=== PATIENT | female | born 1940 | race Caucasian/White ===

== ENCOUNTER 2017-08-10 12:15 | Emergency (ER) | payer MEDICARE, OTHER ==
[2017-08-10] MEDS ORDERED: Iopamidol 755 Mg/ML 75 ML Bottle IV ONE (13:17)
--- NOTE | 2017-08-11 12:25 | CR ---
INDICATION: Fall. CHEST: Portable AP upright view of the chest revealed the heart to be enlarged , the aorta is tortuous with calcification in the arch. The upper lung field pulmonary vasculature appears slightly prominent, raising question of a mild or early CHF. This should be correlated clinically. Consolidating pneumonia or effusion, contusion or pneumothorax, was not identified. IMPRESSION: ASHD, cardiomegaly, mild or early CHF. MTDD
--- NOTE | 2017-08-12 16:59 | ER ---
DATE SEEN: 08/10/2017 TIME SEEN: The patient was seen at 1230 hours - that was her presentation to the ER. HISTORY OF PRESENT ILLNESS: This 76-year-old woman complains of a fall this morning. At 1100 hours, she was attempting to get up from her chair at the table, while others were watching her, to reach for her walker, and she fell off to the side and fell onto the floor onto her buttocks. She did not strike her head or hurt her arms or thighs, but she has mild sore buttocks. She denies hip pain. Her son noted that she was slightly weak and had a tendency to lean to the left. PAST MEDICAL HISTORY: Significant for gout, uses febuxostat 40 mg daily; rheumatoid arthritis, methotrexate; diabetes, metformin; atrial fibrillation, uses carvedilol 6.75 mg and was to have a pacemaker placed on 08/12/2017; a CVA 3 months ago; and question if she has congestive heart failure; status post previous left total knee arthroplasty in July 2016 and also ankle fracture and has hardware placed years before that; obese, 210 pounds; and has presbycusis, decreased hearing. REVIEW OF SYSTEMS: CONSTITUTIONAL: Presbycusis, wears glasses. CARDIAC: Denies chest pain, shortness of breath, cough, or recent fever. GI: Denies abdominal pain. No gastrointestinal symptoms. : 5, para 5-0-0-5. All vaginal deliveries. PHYSICAL EXAMINATION: GENERAL: Alert woman who has a trace of loss of left nasolabial fold. Otherwise, the smile has symmetry to the face. HEENT: PERRLA intact. Pharynx without abnormality. Gag is in place. Tongue is midline. Uvula is midline. NECK: No bruits. No masses. No cervical adenopathy. LUNGS: Clear without rales, rhonchi, or wheezes. HEART: S1, S2. There is an irregular rhythm. ABDOMEN: Soft. No guarding. No abdominal discomfort. EXTREMITIES: No pedal edema. Dorsalis pedis pulse intact. NEUROLOGIC: Deep tendon reflexes in lower extremities absent, upper extremities hypoactive. Cranial nerves 2 through 12 intact, except for the mild left facial nasolabial fold changes-central 7. Left leg, able to raise her left leg and right leg. Right leg strength is stronger than the left leg. Left leg has mild giveaway against active resistance. Attempts at dorsiflexion and attempt to pull her entire body distally with dorsiflexion of the ankles, there is a moderate giveaway of the left ankle. 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 DIAGNOSTIC STUDIES: CT of the head revealed no convincing evidence for recent infarct. No hemorrhage, mass, or mass effect. Vertebral arteries and internal carotid artery siphons bilaterally demonstrate atherosclerotic mural calcifications. Mild left acute maxillary sinusitis-visualized sinus. Brain, [id number] nonspecific atrophy, chronic microvascular changes of ischemia without prior infarction noted in the white matter. No evidence for recent infarct. No hemorrhage or mass effect. LABORATORY FINDINGS: White count normal at 9600, PMNs 73, lymphocytes 14, monos 8, hemoglobin 13, and platelets 339,000. INR is 1.02. D-dimer slightly elevated at 1610 (within the range of normal for her age, as per studies 6000 patients, 2015). Potassium low at 3.2, creatinine 1.2, BUN 24, GFR 44, and glucose 177. Troponin less than 0.017. Albumin 3.1. ER COURSE: Attempt to get a large IV was not successful, as we wanted to do vascular studies along with the noncontrast study and this created a delay in our studies. I chose to go ahead with the CT scan anyway without the IV contrast. CT as noted above. ASSESSMENT: 1. Right cerebrovascular accident. 2. At 1445 hours, it was noted that she had an improvement of her left arm, no longer had a pronator drift, no longer has a decreased strength in her left arm, and the left leg strength is much improved. On repeat examination, she has regained a total of maybe 75% strength in the left arm and left leg. She still has a giveaway of both of them. OTHER DIAGNOSES: 1. Obesity. 2. Gout. 3. Hypertension. 4. Atrial fibrillation. 5. EKG has old inferior infarct and old anterior infarct, heart rate 61. 6. Atrial fibrillation. No sign of congestive heart failure. Also, the fact that she had a cerebrovascular accident 3 months ago, indeterminate to the exact time of the events for her, the patient will not be getting lytics. She will be headed to [facility], Dr. Collin Lance, and also the neurologist who accepted the patient, also talked to Dr. Tali Pena in the ER. The patient will be expected in the emergency room and arrangements were made for a stroke alert and CT angio for further evaluations. /[id number] ARMANDO/NORMA
== END 2017-08-10 15:20 ==
LOC: FB.ED 12:15
DX: I63.9 Cerebral infarction, unspecified (principal); E11.9 Type 2 diabetes mellitus without complications; M10.9 Gout, unspecified; I48.91 Unspecified atrial fibrillation; E66.9 Obesity, unspecified; Z79.84 Long term (current) use of oral hypoglycemic drugs; W19.XXXA Unspecified fall, initial encounter
CPT/HCPCS: 36415; 70450; 71045; 80053; 83880; 84443; 84484; 85025; 85379; 85610; 93005; 99285

== ENCOUNTER 2017-08-21 03:15 | Emergency (ER) | payer MEDICARE, OTHER ==
[2017-08-21] MEDS ORDERED: Sodium Chloride 0.9% 10 ML Syringe FLUSH PRN (03:23)
[2017-08-21] MEDS ORDERED: Acetaminophen 325 MG Tab PO STA (04:04)
--- NOTE | 2017-08-21 04:11 | EDM.PDOC ---
ED HPI GENERAL MEDICAL PROBLEM - General Stated Complaint: GENERAL Time Seen by Provider: 08/21/17 03:15 Source of Information: Reports: Patient, Family, RN (from [place]) History Limitations: Reports: Altered Mental Status - History of Present Illness INITIAL COMMENTS - FREE TEXT/NARRATIVE: 76 y.o.w.f came from the alf to the ED after a nurse noticed a bleed at the patient's left ant chest wall where a pacemaker was placed on 08/19/2017. On arrival, there a mild bleed at a 6 cm surgical wound. No pulsating bleed. Pt denied chest pain. BP 166/89 HR 79 Temp 98.3 Pulse 99% RR 18. Onset: Today Onset Date: 08/21/17 Onset Time: 03:00 Duration: Minutes:, Intermittent Location: Reports: Chest Quality: Reports: Other (surgical wound bleed) Severity: Moderate Improves with: Reports: Cold Therapy Worsens with: Reports: Movement Context: Reports: Trauma (S/P pacemaker placement 08/19/2017) Associated Symptoms: Reports: Other (H/O CVA) - Related Data Allergies Allergy/AdvReac Type Severity Reaction Status Date / Time lisinopril Allergy Dizziness Verified 08/21/17 05:18 Home Meds: Home Meds Carvedilol 3.125 mg PO DAILY 08/10/17 [History] Diltiazem HCl [Diltiazem ER] 240 mg PO DAILY 08/10/17 [History] Febuxostat [Uloric] 80 mg PO DAILY 08/10/17 [History] Methotrexate 15 mg PO WEEKLY 08/10/17 [History] Sertraline [Zoloft] 25 mg PO DAILY 08/10/17 [History] metFORMIN HCl [Metformin HCl ER] 500 mg PO DAILY 08/10/17 [History] Past Medical History HEENT History: Reports: Impaired Vision Cardiovascular History: Reports: Afib, Hypertension 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: Musculoskeletal History: Reports: Arthritis Neurological History: Reports: TIA Endocrine/Metabolic History: Reports: Diabetes, Type II - Past Surgical History Female Surgical History: Reports: Hysterectomy Musculoskeletal Surgical History: Reports: Arthroscopic Knee, Knee Replacement Other Musculoskeletal Surgeries/Procedures:: ankle hardware Social & Family History - Family History Family Medical History: Unobtainable - Tobacco Use Smoking Status *Q: Never Smoker - Caffeine Use Caffeine Use: Reports: Coffee, Soda, Tea - Recreational Drug Use Recreational Drug Use: No ED ROS GENERAL - Review of Systems Review Of Systems: See Below Constitutional: Reports: No Symptoms HEENT: Reports: No Symptoms Respiratory: Reports: No Symptoms Cardiovascular: Reports: No Symptoms Endocrine: Reports: Other (H/O DM) GI/Abdominal: Reports: No Symptoms : Reports: No Symptoms Musculoskeletal: Reports: No Symptoms Skin: Reports: Wound (surgial wound left ant chest wall s/p Pacemaker placement 08/19/2017) Neurological: Reports: No Symptoms Psychiatric: Reports: No Symptoms Hematologic/Lymphatic: Reports: No Symptoms Immunologic: Reports: No Symptoms ED EXAM, SKIN/RASH Exam: See Below Exam Limited By: Physical Impairment General Appearance: Alert, WD/WN, No Apparent Distress, Obese (morbid) Eye Exam: Bilateral Eye: Normal Inspection Ears: Normal External Exam Nose: Normal Inspection Throat/Mouth: Normal Inspection Head: Atraumatic, Normocephalic Neck: Normal Inspection, Supple, Non-Tender, Full Range of Motion Respiratory/Chest: No Respiratory Distress, Lungs Clear, Normal Breath Sounds, No Accessory Muscle Use Cardiovascular: Normal Peripheral Pulses, Regular Rate, Rhythm, No Edema Peripheral Pulses: 1+: Radial (L) GI/Abdominal: Normal Bowel Sounds (Female) Exam: Deferred Rectal (Female) Exam: Deferred Back Exam: Normal Inspection, Full Range of Motion Extremities: Normal Inspection, Normal Range of Motion, Limited Range of Motion (deu to bilt leg cramps) Neurological: Alert, Oriented, CN II-XII Intact Psychiatric: Normal Affect, Normal Mood Skin: Warm, Dry, Wound/Incision (surgical wound blled left ant chest) Location, Skin: Chest (surgical wound bleed left ant c) Course - Vital Signs Text/Narrative:: 76 y.o.w.f came from the alf to the ED after a nurse noticed a bleed at the patient's left ant chest wall where a pacemaker was placed on 08/19/2017. On arrival, there a mild bleed at a 6 cm surgical wound. No pulsating bleed. Pt denied chest pain. BP 166/89 HR 79 Temp 98.3 Pulse 99% RR 18. PE: Surgical wound bleed for a 6 cm wound, not pulsating with leg cramps Labs: WBC 15K, INR 1.15 HGB 11.4 HCT 34.0 Impression: Pacemaker placement on 08/19/2017, H/O CVA, on Coumadin with surgical wound bleed left ant chest wall. Leg cramps. NIDDM. Tx: Pressure, ICE bag. Tylenol 4.[address] Morales, Card vas surgeon [facility]: Call back in 2-3 hours, then the surgeon who placed the pacemaker. 4.[address] John, Hospitalist [facility]: Accepted the patient for transfer and further care Reexam: stable, not improving Plan: Transfer to [facility] Last Recorded V/S: Last Vital Signs Temp 37.2 C 08/21/17 03:15 Pulse 88 08/21/17 03:15 Resp 18 08/21/17 03:15 BP 187/90 H 08/21/17 03:15 Pulse Ox 98 08/21/17 03:15 - Orders/Labs/Meds Orders: Active Orders 24 hr Category Date Time Status Cooling Warming Measures [RC] ASDIRECTED Care 08/21/17 03:23 Active Sodium Chloride 0.9% @ 125 MLS/HR (1000ml) Med 08/21/17 05:30 Ordered Sodium Chloride 0.9% [Normal Saline] 1,000 ml IV ASDIRECTED Sodium Chloride 0.9% [Saline Flush] Med 08/21/17 03:23 Active 10 ml FLUSH ASDIRECTED PRN Ice Bag [Ice Therapy] [OM.PC] Routine Oth 08/21/17 03:23 Ordered Peripheral IV Insertion Adult [OM.PC] Routine Oth 08/21/17 03:23 Ordered Medication Orders Sodium Chloride (Normal Saline) 1,000 mls @ 125 mls/hr IV ASDIRECTED MCKENZIE Last Admin: 08/21/17 05:10 Dose: 125 mls/hr Sodium Chloride (Saline Flush) 10 ml FLUSH ASDIRECTED PRN PRN Reason: Keep Vein Open Last Admin: 08/21/17 03:22 Dose: 10 ml 4.10 am: Consultation DR. CALERO, Cardiovasc. Surgeon, [facility]: Labs: Laboratory Tests 08/21/17 08/21/17 08/21/17 Range/Units 03:22 03:22 03:22 WBC 15.1 H (4.5-12.0) X10-3/uL RBC 3.81 (3.23-5.20) x10(6)uL Hgb 11.4 L (11.5-15.5) g/dL Hct 34.0 (30.0-51.3) % MCV 89.3 (80-96) fL MCH 30.0 (27.7-33.6) pg MCHC 33.6 (32.2-35.4) g/dL RDW 16.7 H (11.5-15.5) % Plt Count 360 (125-369) X10(3)uL MPV 8.6 (7.4-10.4) fL Add Manual Diff Yes Neutrophils % (Manual) 70 (46-82) % Band Neutrophils % 3 (0-6) % Lymphocytes % (Manual) 20 (13-37) % Monocytes % (Manual) 5 (4-12) % Eosinophils % (Manual) 2 (0-5) % PT 11.6 H (8.7-11.1) INR 1.15 H (0.89-1.13) APTT 31.1 (24.4-33.2) SECONDS Sodium 136 (135-145) mmol/L Potassium 3.8 (3.5-5.3) mmol/L Chloride 99 L (100-110) mmol/L Carbon Dioxide 27 (21-32) mmol/L BUN 18 (7-18) mg/dL Creatinine 1.0 (0.55-1.02) mg/dL Est Cr Clr Drug Dosing TNP Estimated GFR (MDRD) 54 L (>60) BUN/Creatinine Ratio 18.0 (9-20) Glucose 154 H (80-116) mg/dL Calcium 9.2 (8.6-10.2) mg/dL Creatine Kinase 616 H* (60-160) IU/L Troponin I (<0.017-0.056) ng/mL 08/21/17 Range/Units 03:22 WBC (4.5-12.0) X10-3/uL RBC (3.23-5.20) x10(6)uL Hgb (11.5-15.5) g/dL Hct (30.0-51.3) % MCV (80-96) fL MCH (27.7-33.6) pg MCHC (32.2-35.4) g/dL RDW (11.5-15.5) % Plt Count (125-369) X10(3)uL MPV (7.4-10.4) fL Add Manual Diff Neutrophils % (Manual) (46-82) % Band Neutrophils % (0-6) % Lymphocytes % (Manual) (13-37) % Monocytes % (Manual) (4-12) % Eosinophils % (Manual) (0-5) % PT (8.7-11.1) INR (0.89-1.13) APTT (24.4-33.2) SECONDS Sodium (135-145) mmol/L Potassium (3.5-5.3) mmol/L Chloride (100-110) mmol/L Carbon Dioxide (21-32) mmol/L BUN (7-18) mg/dL Creatinine (0.55-1.02) mg/dL Est Cr Clr Drug Dosing Estimated GFR (MDRD) (>60) BUN/Creatinine Ratio (9-20) Glucose (80-116) mg/dL Calcium (8.6-10.2) mg/dL Creatine Kinase (60-160) IU/L Troponin I 0.020 (<0.017-0.056) ng/mL Meds: Medications Generic Name Dose Route Start Last Admin Trade Name Freq PRN Reason Stop Dose Admin Sodium Chloride 1,000 mls @ 125 mls/hr 08/21/17 05:30 08/21/17 05:10 Normal Saline IV 125 mls/hr ASDIRECTED MCKENZIE Administration Sodium Chloride 10 ml 08/21/17 03:23 08/21/17 03:22 Saline Flush FLUSH 10 ml ASDIRECTED PRN Administration Keep Vein Open Discontinued Medications Generic Name Dose Route Start Last Admin Trade Name Freq PRN Reason Stop Dose Admin Acetaminophen 650 mg 08/21/17 04:04 08/21/17 04:20 Tylenol PO 08/21/17 04:05 650 mg NOW STA Administration Departure - Departure Time of Disposition: 05:21 Disposition: DC/Tfer to [facility] Condition: Fair Clinical Impression: Surgical wound dehiscence Qualifiers: Encounter type: initial encounter Qualified Code(s): T81.31XA - Disruption of external operation (surgical) wound, not elsewhere classified, initial encounter - Discharge Information Referrals: PCP,Unknown [Primary Care Provider] - - My Orders Last 24 Hours: My Active Orders 08/21/17 03:23 Cooling Warming Measures [RC] ASDIRECTED Sodium Chloride 0.9% [Saline Flush] 10 ml FLUSH ASDIRECTED PRN Ice Bag [Ice Therapy] [OM.PC] Routine Peripheral IV Insertion Adult [OM.PC] Routine 08/21/17 05:30 Sodium Chloride 0.9% @ 125 MLS/HR (1000ml) Sodium Chloride 0.9% [Normal Saline] 1,000 ml IV ASDIRECTED - Assessment/Plan Last 24 Hours: My Active Orders 08/21/17 03:23 Cooling Warming Measures [RC] ASDIRECTED Sodium Chloride 0.9% [Saline Flush] 10 ml FLUSH ASDIRECTED PRN Ice Bag [Ice Therapy] [OM.PC] Routine Peripheral IV Insertion Adult [OM.PC] Routine 08/21/17 05:30 Sodium Chloride 0.9% @ 125 MLS/HR (1000ml) Sodium Chloride 0.9% [Normal Saline] 1,000 ml IV ASDIRECTED
[2017-08-21] MEDS ORDERED: Sodium Chloride 0.9% 1,000 ML IV SCH (05:30)
== END 2017-08-21 05:42 | disposition critical access hospital (66) ==
LOC: FB.ED 03:15
DX: T81.31XA Disruption of external operation (surgical) wound, not elsewhere classified, initial encounter (principal); E11.9 Type 2 diabetes mellitus without complications; I10 Essential (primary) hypertension; I48.91 Unspecified atrial fibrillation; Z86.73 Personal history of transient ischemic attack (TIA), and cerebral infarction without residual deficits; Z95.0 Presence of cardiac pacemaker; Z88.8 Allergy status to other drugs, medicaments and biological substances; Z79.899 Other long term (current) drug therapy
CPT/HCPCS: 36415; 80048; 82550; 84484; 85025; 85610; 85730; 96360; 99283; 99284; A9270-GY; J7040; J7050

== ENCOUNTER 2017-08-26 18:18 | Emergency (ER) | payer MEDICARE, OTHER ==
[2017-08-26] MEDS ORDERED: Ketorolac 60 MG/2 ML SDV IM ONE (18:30)
--- NOTE | 2017-08-26 18:47 | EDM.PDOC ---
ED HPI GENERAL MEDICAL PROBLEM - General Chief Complaint: Lower Extremity Injury/Pain Stated Complaint: HIP PAIN Time Seen by Provider: 08/26/17 18:18 Source of Information: Reports: Patient, RN ([facility]) History Limitations: Reports: Physical Impairment - History of Present Illness INITIAL COMMENTS - FREE TEXT/NARRATIVE: 76 y.o.w.f [facility] due to pain at her left "hip" pointing to her LLQ of her abdomen and left thigh. No trauma. Pt is currently at the [facility] recovering from her left sided CVA. Pt is a poor historian, no family is present. No other acute medical issues. 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 Left Hip Pain Score (Numeric/FACES): 5 - Related Data Allergies Allergy/AdvReac Type Severity Reaction Status Date / Time lisinopril Allergy Dizziness Verified 08/26/17 18:27 Home Meds: Home Meds Carvedilol 3.125 mg PO DAILY 08/10/17 [History] Diltiazem HCl [Diltiazem ER] 240 mg PO DAILY 08/10/17 [History] Febuxostat [Uloric] 80 mg PO DAILY 08/10/17 [History] Methotrexate 15 mg PO WEEKLY 08/10/17 [History] Sertraline [Zoloft] 25 mg PO DAILY 08/10/17 [History] metFORMIN HCl [Metformin HCl ER] 500 mg PO DAILY 08/10/17 [History] Past Medical History HEENT History: Reports: Impaired Vision Cardiovascular History: Reports: Afib, Hypertension Gastrointestinal History: Reports: None Genitourinary History: Reports: Chronic Renal Insuffiency, Other (See Below) Other Genitourinary History: urinary retention, has 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: Musculoskeletal History: Reports: Arthritis Neurological History: Reports: TIA 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 Endocrine/Metabolic History: Reports: Diabetes, Type II - Infectious Disease History Infectious Disease History: Reports: Chicken Pox - Past Surgical History Female Surgical History: Reports: Hysterectomy Musculoskeletal Surgical History: Reports: Arthroscopic Knee, Knee Replacement Other Musculoskeletal Surgeries/Procedures:: ankle hardware Social & Family History - Family History Family Medical History: Unobtainable - Tobacco Use Smoking Status *Q: Never Smoker - Caffeine Use Caffeine Use: Reports: Coffee, Soda, Tea - Recreational Drug Use Recreational Drug Use: No Review of Systems - Review of Systems Review Of Systems: Unable To Obtain ED EXAM, GENERAL - Physical Exam Exam: See Below Exam Limited By: Physical Impairment General Appearance: Alert, WD/WN, Obese Eye Exam: Bilateral Eye: Normal Inspection Ears: Normal External Exam Ear Exam: Bilateral Ear: Auricle Normal Nose: Normal Inspection Throat/Mouth: Normal Inspection Head: Atraumatic, Normocephalic Neck: Normal Inspection, Supple, Non-Tender, Full Range of Motion Respiratory/Chest: No Respiratory Distress, Lungs Clear, Normal Breath Sounds Cardiovascular: Normal Peripheral Pulses, Regular Rate, Rhythm, No Edema, No Gallop Peripheral Pulses: 1+: Brachial (L) GI/Abdominal: Normal Bowel Sounds, No Organomegaly, No Distention, No Abnormal Bruit, No Mass, Tender (LLQ) (Female) Exam: Deferred Rectal (Female) Exam: Deferred Back Exam: Normal Inspection, Full Range of Motion Extremities: Normal Inspection, Normal Range of Motion, Non-Tender, No Pedal Edema Neurological: Alert, Oriented, CN II-XII Intact, Normal Cognition, Abnormal Gait (gait not tested, pt is currently bedridden due to a Leftsided CVA) Psychiatric: Normal Affect, Normal Mood Skin Exam: Warm, Dry, Intact, Normal Color, No Rash Lymphatic: No Adenopathy Course - Vital Signs Text/Narrative:: 76 y.o.w.f [facility] to pain at her left "hip" pointing to her LLQ of her abdomen and left thigh. No trauma. [facility] is [facility] at [facility] recovering from her left sided CVA. Pt is a poor historian, no family is present. No other acute medical issues. BP 156/124 Pulse 64 RR 20 Pulse ox 98% temp 36.7 PE: Obese 76 y.o.w.f eith left sided hemiparesis, abd, pain and left lat hip pain Imaging: Pelvis and left hip: NAD Abd. flat/upright: Constipation Impression: Trochante tendinitis, constipation Tx: Motrin Reexam: Improved Plan: D/C back to [facility] with instruction. Prophylactic Lovenox (?) Last Recorded V/S: Last Vital Signs Temp 36.8 C 08/26/17 19:23 Pulse 61 08/26/17 20:12 Resp 18 08/26/17 19:23 BP 142/38 H 08/26/17 20:12 Pulse Ox 100 08/26/17 19:23 - Orders/Labs/Meds Meds: Medications Discontinued Medications Generic Name Dose Route Start Last Admin Trade Name Freq PRN Reason Stop Dose Admin Ketorolac Tromethamine 60 mg 08/26/17 18:30 08/26/17 18:36 Toradol IM 08/26/17 18:31 60 mg ONETIME ONE Administration Departure - Departure Time of Disposition: 19:54 Disposition: Home, Self-Care 01 Condition: Good Clinical Impression: Trochanteric tendinitis of left hip Constipation Qualifiers: Constipation type: slow transit constipation Qualified Code(s): K59.01 - Slow transit constipation - Discharge Information Referrals: Todd Mccray MD [Primary Care Provider] - Forms: ED Department Discharge Additional Instructions: ice, motrin 600 mg every 6 hours and tylenol 650 mg every 6 hours as needed for pain. Refer to physical therapy and make an appointment with PCP to follow up. Please take laxatives daily.
--- NOTE | 2017-08-27 08:38 | CR ---
INDICATION: Fell on Friday, left hip pain. PELVIS WITH LEFT HIP: Frontal view of the pelvis with frontal and lateral views of the left hip revealed mild degenerative changes at the hip joints with the joint spaces fairly well preserved. A definite fracture or dislocation was not identified. Overall bone density appeared to be fairly normal. Evidence of previous pelvic surgery is noted. Multiple phleboliths are noted in the pelvis. Very minimal degenerative changes are noted at the sacroiliac joints, slightly more prominently on the right than left. IMPRESSION: No acute fracture or dislocation. [facility]
--- NOTE | 2017-08-27 10:25 | CR ---
INDICATION: Abdominal pain. ABDOMEN: Five images of the abdomen were obtained in supine and decubitus positions, with the right side up on the decubitus. The pattern of gas and feces is nonspecific, without evidence of free air or obstruction. Calcifications are noted in the area of the splenic artery and minimally in the aorta. Hypertrophic degenerative changes and disk disease are noted in the mid to lower lumbar spine. No organomegaly, mass lesions, or nonvascular pathologic calcifications were identified. IMPRESSION: Nonacute abdomen. MTDD
== END 2017-08-26 20:19 | disposition home or self-care (01) ==
LOC: FB.ED 18:18
DX: M70.62 Trochanteric bursitis, left hip (principal); K59.01 Slow transit constipation; I12.9 Hypertensive chronic kidney disease with stage 1 through stage 4 chronic kidney disease, or unspecified chronic kidney disease; E11.22 Type 2 diabetes mellitus with diabetic chronic kidney disease; N18.9 Chronic kidney disease, unspecified; Z90.710 Acquired absence of both cervix and uterus; Z88.8 Allergy status to other drugs, medicaments and biological substances; Z79.84 Long term (current) use of oral hypoglycemic drugs; Z79.899 Other long term (current) drug therapy
CPT/HCPCS: 73502; 74021; 96372; 99284; J1885; 96374; 99283

== ENCOUNTER 2018-08-11 21:31 | Emergency (ER) | payer MEDICARE ==
--- NOTE | 2018-08-12 02:24 | EDM.PDOC ---
ED HPI GENERAL MEDICAL PROBLEM - General Chief Complaint: Tube Replacement Stated Complaint: FROM [facility] Time Seen by Provider: 08/11/18 21:40 Source of Information: Reports: Patient, Other (Caregiver ) History Limitations: Reports: Physical Impairment - History of Present Illness INITIAL COMMENTS - FREE TEXT/NARRATIVE: 77 y.o.w.f was brought to the ed after her suprapubic catheter fell out. Pt had originally a suprapubic catheter please because to place a Mackay catheter through her urethra was not possible. The suprapubic catheter fell out at about noon, through shift change etc. it was noticed later in the day that the suprapubic catheter was misplaced. Pt did not have pain, SOB, CP or any other acute medical issues. BP 147/76 RR 18 Pulse ox 96% on RA Pulse 65 Temp 36.6 Onset Date: 08/11/18 Onset Time: 14:00 Duration: Hour(s): Location: Reports: Pelvis Quality: Reports: Other (suprapubic catheter fell aou about Noon or so) Improves with: Reports: Rest Worsens with: Reports: Movement - Related Data Allergies Allergy/AdvReac Type Severity Reaction Status Date / Time lisinopril Allergy Dizziness Verified 08/11/18 22:31 Home Meds: Home Meds Febuxostat [Uloric] 80 mg PO DAILY 08/10/17 [History] Methotrexate 15 mg PO WEEKLY 08/10/17 [History] Sertraline [Zoloft] 25 mg PO DAILY 08/10/17 [History] metFORMIN HCl [Metformin ER Osmotic] 500 mg PO DAILY 08/10/17 [History] Aspirin [Halfprin] 81 mg PO DAILY 08/29/17 [History] Metoprolol Succinate [Toprol Xl] 100 mg PO DAILY 08/29/17 [History] Warfarin [Coumadin] 5 mg PO DAILY 08/29/17 [History] Past Medical History HEENT History: Reports: Impaired Vision Cardiovascular History: Reports: Afib, Hypertension Gastrointestinal History: Reports: None Genitourinary History: Reports: Chronic Renal Insuffiency, Other (See Below) Other Genitourinary History: urinary retention, has mackay [employer] History: Reports: Musculoskeletal History: Reports: Arthritis Neurological History: Reports: TIA 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 Endocrine/Metabolic History: Reports: Diabetes, Type II - Infectious Disease History Infectious Disease History: Reports: Chicken Pox - Past Surgical History Head Surgeries/Procedures: Reports: None Female Surgical History: Reports: Hysterectomy Musculoskeletal Surgical History: Reports: Arthroscopic Knee, Knee Replacement Other Musculoskeletal Surgeries/Procedures:: ankle hardware Dermatological Surgical History: Reports: None Social & Family History - Family History Family Medical History: Unobtainable - Tobacco Use Smoking Status *Q: Never Smoker Second Hand Smoke Exposure: No - Caffeine Use Caffeine Use: Reports: Coffee - Recreational Drug Use Recreational Drug Use: No ED ROS GENERAL - Review of Systems Review Of Systems: Unable To Obtain ED EXAM, GENERAL - Physical Exam Exam: See Below Exam Limited By: Physical Impairment General Appearance: Alert, WD/WN, Mild Distress Eye Exam: Bilateral Eye: Normal Inspection Ears: Normal External Exam Ear Exam: Bilateral Ear: Auricle Normal Nose: Normal Inspection Throat/Mouth: Normal Inspection Head: Atraumatic Neck: Normal Inspection Respiratory/Chest: No Respiratory Distress, Lungs Clear Cardiovascular: Normal Peripheral Pulses Peripheral Pulses: 1+: Brachial (L) GI/Abdominal: Normal Bowel Sounds (Female) Exam: Other (suprapubic catheter came out at about noon. Noticed sverel hours later by nurse) Rectal (Female) Exam: Deferred Back Exam: Normal Inspection Extremities: Normal Inspection, Normal Range of Motion Neurological: Alert, Oriented, CN II-XII Intact, Other (unable to amnbulate due to CVA and obesity) Psychiatric: Normal Affect, Normal Mood Skin Exam: Warm, Dry, Intact Lymphatic: No Adenopathy Course - Vital Signs Text/Narrative:: 77 y.o.w.f was brought to the ed after her suprapubic catheter fell out. Pt had originally a suprapubic catheter please because to place a Mackay catheter through her urethra was not possible. The suprapubic catheter fell out at about noon, through shift change etc. it was noticed later in the day that the suprapubic catheter was misplaced. Pt did not have pain, SOB, CP or any other acute medical issues. BP 147/76 RR 18 Pulse ox 96% on RA Pulse 65 Temp 36.6 PE: Morbid obese w f with a h/o CVA Procedure: Nurse and me were not able to place the suprapubic catrhere because the obening may have been alrady healed. Nurse was able to place a Mackay through he urethra, however. Impression: Mackay cath placement Tx: Placement of Mackay cath 8.20 pm Consultation: Dr. Belle, surgeon was called by the nurse: He will not place a suprapubic Cath in the ED Reexam: Pt did fine in the ED, was D/C'd with instruction Plan: D/C with instructions Last Recorded V/S: Last Vital Signs Temp 36.8 C 08/11/18 21:40 Pulse 64 08/11/18 21:40 Resp 18 08/11/18 21:40 BP 148/76 H 08/11/18 21:40 Pulse Ox 98 08/11/18 21:40 Departure - Departure Time of Disposition: 23:00 Disposition: Home, Self-Care 01 Condition: Good Clinical Impression: Mackay catheter problem - Discharge Information Referrals: Todd Mccray MD [Primary Care Provider] - Forms: ED Department Discharge
== END 2018-08-11 22:50 | disposition home or self-care (01) ==
LOC: FB.ED 21:31
DX: T83.098A Other mechanical complication of other urinary catheter, initial encounter (principal); I12.9 Hypertensive chronic kidney disease with stage 1 through stage 4 chronic kidney disease, or unspecified chronic kidney disease; N18.9 Chronic kidney disease, unspecified; E11.22 Type 2 diabetes mellitus with diabetic chronic kidney disease; Z88.8 Allergy status to other drugs, medicaments and biological substances; Z79.82 Long term (current) use of aspirin; Z79.84 Long term (current) use of oral hypoglycemic drugs; Z79.01 Long term (current) use of anticoagulants; Z79.899 Other long term (current) drug therapy; Z90.710 Acquired absence of both cervix and uterus
CPT/HCPCS: 51702; 99283

== ENCOUNTER → 2019-04-21 | Outpatient (CLI) | payer MEDICARE | LOC: FB.LABPRM 04:07 | PROVIDERS: ATTEND Internal Medicine | DX: I48.91 Unspecified atrial fibrillation (principal) | CPT/HCPCS: 36415; 85610 ==

== ENCOUNTER 2019-10-30 20:45 | Inpatient (IN) | payer MEDICARE ==
[2019-10-30] MEDS ORDERED: Sodium Chloride 0.9% 10 ML Syringe FLUSH PRN (20:49)
[2019-10-30] MEDS ORDERED: Acetaminophen 650 MG Supp RECTAL ONE (20:51)
--- NOTE | 2019-10-30 21:08 | EDM.PDOC ---
ED HPI GENERAL MEDICAL PROBLEM - General Stated Complaint: FEVER Time Seen by Provider: 10/30/19 20:48 Source of Information: Reports: Half-Way Records History Limitations: Reports: Other (Patient is oriented to place and person but not to time or situation.) - History of Present Illness INITIAL COMMENTS - FREE TEXT/NARRATIVE: 78-year-old female who is a resident of [facility] who apparently p.m. reported that she was not feeling well and had vomiting times multiple times. She appeared to be having some difficulty breathing during this vomiting and was noted to have an O2 saturation of 90% on room air. She also was noted to have a fever 101.8F. She presents to the emergency department from the prison for evaluation. The patient is oriented to place and person but he does not know why she is in the emergency department other than "the nurses thought that I needed to come over here to be checked". She denies any pain at present. She rates her pain as a 0/10. She states she has had no chest pain or feelings of shortness of breath. She did report nausea earlier but she states that that resolved after she had her vomiting. She denied any weakness but was unable to raise herself from lying on the bed just sitting up. Most of the history that I obtain comes from report from the prison staff. The history is limited because of the patient's somewhat altered minimal status. She appears to have some dementia. The nursing staff at the prison feels that the patient is more confused. There are no other associated signs or symptoms. There are no other modifying factors. Onset: Today Duration: Constant Location: Reports: Other (No pain reported) Quality: Reports: Other (Not applicable) Improves with: Reports: None Worsens with: Reports: None Associated Symptoms: Reports: Confusion, Fever/Chills, Nausea/Vomiting, Shortness of Breath - Related Data Allergies Allergy/AdvReac Type Severity Reaction Status Date / Time lisinopril Allergy Dizziness Verified 08/11/18 22:31 Home Meds: Home Meds Febuxostat [Uloric] 40 mg PO DAILY 08/10/17 [History] Methotrexate 15 mg PO WEEKLY 08/10/17 [History] Sertraline [Zoloft] 25 mg PO DAILY 08/10/17 [History] metFORMIN HCl [Metformin ER Osmotic] 500 mg PO DAILY 08/10/17 [History] Aspirin [Halfprin] 81 mg PO DAILY 08/29/17 [History] Metoprolol Succinate [Toprol Xl] 100 mg PO DAILY 08/29/17 [History] Warfarin [Coumadin] 5 mg PO ASDIRECTED 08/29/17 [History] Acetaminophen [Acetaminophen Extra Strength] 1,000 mg PO BID 10/30/19 [History] Cholecalciferol (Vitamin D3) [Vitamin D3] 1 tab PO DAILY 10/30/19 [History] Ferrous Sulfate 1 tab PO DAILY 10/30/19 [History] Folic Acid 1 mg PO DAILY 10/30/19 [History] Gabapentin [Neurontin] 100 mg PO DAILY 10/30/19 [History] Gabapentin [Neurontin] 200 mg PO BEDTIME 10/30/19 [History] Krill Oil 500 mg PO TID 10/30/19 [History] Losartan [Cozaar] 25 mg PO DAILY 10/30/19 [History] Magnesium Chloride [Mag Delay] 64 mg PO DAILY 10/30/19 [History] Menthol [Biofreeze] 1 applic TOP BID PRN 10/30/19 [History] Miconazole Nitrate [Zeasorb AF] 1 applic TOP DAILY 10/30/19 [History] Mirtazapine 7.5 mg PO BEDTIME 10/30/19 [History] Oxybutynin Chloride [Oxybutynin Chloride ER] 2.5 mg PO TID PRN 10/30/19 [History ] Sennosides/Docusate Sodium [Senna-S 8.6-50 mg Tablet] 1 tab PO TID 10/30/19 [ History] Warfarin Sodium [Coumadin] 2.5 mg PO ASDIRECTED 10/30/19 [History] atorvaSTATin Calcium [Lipitor] 40 mg PO DAILY 10/30/19 [History] hydroCHLOROthiazide [Hydrochlorothiazide] 12.5 mg PO ASDIRECTED 10/30/19 [ History] timoloL maleate [Timoptic 0.25% Ophth Soln] 1 drop EYELF DAILY 10/30/19 [History ] traMADol HCl [Tramadol HCl] 50 mg PO TID PRN 10/30/19 [History] Past Medical History HEENT History: Reports: Impaired Vision Cardiovascular History: Reports: Afib (On chronic anticoagulation with Coumadin) , High Cholesterol, Hypertension Genitourinary History: Reports: Chronic Renal Insuffiency, Other (See Below) Other Genitourinary History: urinary retention, has mackay Musculoskeletal History: Reports: Arthritis Neurological History: Reports: CVA, TIA 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 Endocrine/Metabolic History: Reports: Diabetes, Type II, Obesity/BMI 30+ - Infectious Disease History Infectious Disease History: Reports: Chicken Pox - Past Surgical History HEENT Surgical History: Reports: Tonsillectomy Cardiovascular Surgical History: Reports: Pacer Female Surgical History: Reports: Hysterectomy Musculoskeletal Surgical History: Reports: Arthroscopic Knee, Knee Replacement Other Musculoskeletal Surgeries/Procedures:: ankle hardware Social & Family History - Tobacco Use Smoking Status *Q: Never Smoker - Caffeine Use Caffeine Use: Reports: Coffee - Alcohol Use Alcohol Use History: Yes Alcohol Use Frequency: Rarely - Living Situation & Occupation Living situation: Reports: , Extended Care Facility (She is a resident of [facility] for the past 2 years.) Occupation: Retired Social History Comment: The records from the prison show that the patient is a DNR/DNI. ED ROS GENERAL - Review of Systems Review Of Systems: See Below (It should be noted that this is limited because the patient is somewhat confused. Most of this comes from ports from the prison staff.) Constitutional: Reports: Fever HEENT: Reports: No Symptoms Respiratory: Reports: Shortness of Breath Cardiovascular: Reports: No Symptoms GI/Abdominal: Reports: Nausea, Vomiting : Reports: Other (Chronic indwelling Mackay) Musculoskeletal: Reports: No Symptoms Skin: Reports: No Symptoms Neurological: Reports: Confusion Hematologic/Lymphatic: Reports: Easy Bruising (She is on chronic anticoagulation with Coumadin.) Immunologic: Reports: No Symptoms ED EXAM, GENERAL - Physical Exam Exam: See Below Exam Limited By: No Limitations General Appearance: Alert, Mild Distress, Obese Eye Exam: Bilateral Eye: EOMI, Normal Inspection (Sclera are anicteric), PERRL Ears: Normal External Exam, Hearing Grossly Normal Ear Exam: Bilateral Ear: Auricle Normal Nose: Normal Inspection, Normal Mucosa, No Blood Throat/Mouth: Normal Voice, No Airway Compromise, Other (Somewhat dry mucous membranes) Head: Atraumatic, Normocephalic Neck: Normal Inspection, Supple, Non-Tender, Full Range of Motion Respiratory/Chest: No Respiratory Distress, Normal Breath Sounds, No Accessory Muscle Use, Chest Non-Tender, Crackles (Scattered throughout), Rhonchi ( Scattered throughout) Cardiovascular: Normal Peripheral Pulses, No Murmur Peripheral Pulses: 2+: Radial (L), Radial (R), Dorsalis Pedis (L), Dorsalis Pedis (R) GI/Abdominal: Normal Bowel Sounds, Soft, Non-Tender Back Exam: Normal Inspection Extremities: Normal Capillary Refill, Pedal Edema, Limited Range of Motion Neurological: Alert, CN II-XII Intact, No Motor/Sensory Deficits, Disoriented Skin Exam: Warm, Intact, Normal Color, No Rash, Diaphoretic (Somewhat sweaty but not really a cold sweat) EKG INTERPRETATION EKG Date: 10/30/19 Time: 21:45 Rhythm: A-Fib (With an atrial paced rhythm) Rate (Beats/Min): 78 [place]: Normal P-Wave: Absent QRS: Normal ST-T: Other (Nonspecific) QT: Prolonged Comparison: Other: (Patient with A. fib now compared to EKG on 08/10/2017 but patient has had a long-standing history of A. fib. The EKG was really otherwise unchanged.) Course - Vital Signs Last Recorded V/S: Last Vital Signs Temp 36.6 C 10/30/19 22:30 Pulse 60 10/30/19 22:30 Resp 18 10/30/19 22:30 BP 144/76 H 10/30/19 22:30 Pulse Ox 95 10/30/19 22:30 - Orders/Labs/Meds Orders: Active Orders 24 hr Category Date Time Status Admission Status [Patient Status] [ADT] Routine ADT 10/30/19 21:47 Active Bedrest Bedside Commode [RC] ASDIRECTED Care 10/30/19 21:51 Active Blood Glucose Check, Bedside [RC] 07,11,17,21 Care 10/30/19 21:51 Active Height and Weight [RC] UPON Care 10/30/19 21:51 Active Intake and Output [RC] 06,14,22 Care 10/30/19 21:52 Active Oxygen Therapy [RC] PRN Care 10/30/19 21:51 Active Up to Chair [RC] ASDIRECTED Care 10/30/19 21:51 Active Urinary Catheter Assessment [RC] QSHIFT Care 10/30/19 21:51 Active Vital Signs [RC] 00,08,16 Care 10/30/19 21:51 Active Consult to Palliative Care [CONS] Routine Cons 10/30/19 21:55 Active Clear Liquid Diet [DIET] Diet 10/30/19 Dinner Ordered Chest 1V Frontal [CR] Stat Exams 10/30/19 20:49 Taken BASIC METABOLIC PANEL,BMP [CHEM] AM Lab 10/31/19 05:11 Ordered CBC W/O DIFF,HEMOGRAM [HEME] AM Lab 10/31/19 05:11 Ordered CULTURE URINE [RM] Stat Lab 10/30/19 20:49 Ordered Acetaminophen [Tylenol] Med 10/30/19 21:51 Active 650 mg PO Q4H PRN Ondansetron [Zofran] Med 10/30/19 21:51 Active 4 mg IV Q6H PRN Pharmacy to Dose - Vancomycin Med 10/30/19 22:00 Pending 1 dose .XX ASDIRECTED Piperacillin/Tazobactam [Zosyn] 3.375 gm Med 10/30/19 22:00 Active Sodium Chloride 0.9% [Normal Saline] 50 ml IV Q6H Saccharomyces Boulardii [Florastor] Med 10/30/19 22:00 Active 250 mg PO BID Sodium Chloride 0.9% [Normal Saline] 1,000 ml Med 10/30/19 21:00 Active IV ASDIRECTED Sodium Chloride 0.9% [Saline Flush] Med 10/30/19 20:49 Active 10 ml FLUSH ASDIRECTED PRN Peripheral IV Insertion Adult [OM.PC] Routine Oth 10/30/19 20:49 Ordered Resuscitation Status Routine Resus Stat 10/30/19 21:51 Ordered Medication Orders Acetaminophen (Tylenol) 650 mg PO Q4H PRN PRN Reason: Pain (Mild 1-3)/fever Sodium Chloride (Normal Saline) 1,000 mls @ 100 mls/hr IV ASDIRECTED MCKENZIE Last Admin: 10/30/19 21:34 Dose: 100 mls/hr Piperacillin Sod/Tazobactam (Sod 3.375 gm/ Sodium Chloride) 50 mls @ 100 mls/ hr IV Q6H MCKENZIE Last Admin: 10/30/19 22:53 Dose: 100 mls/hr Vancomycin HCl 1.5 gm/ Premix 300 mls @ 300 mls/hr IV ONETIME ONE Stop: 10/31/19 00:29 Last Admin: 10/30/19 23:59 Dose: 300 mls/hr Vancomycin HCl 1.25 gm/ Sodium (Chloride) 250 mls @ 166.667 mls/hr IV Q12H [facility] Ondansetron HCl (Zofran) 4 mg IV Q6H PRN PRN Reason: Nausea/Vomiting Saccharomyces Boulardii (Florastor) 250 mg PO BID MCKENZIE Last Admin: 10/30/19 22:54 Dose: 250 mg Sodium Chloride (Saline Flush) 10 ml FLUSH ASDIRECTED PRN PRN Reason: Keep Vein Open Vancomycin HCl (Pharmacy To Dose - Vancomycin) 1 dose .XX ASDIRECTED [facility] Labs: Laboratory Tests 10/30/19 10/30/19 Range/Units 20:25 21:15 NT-Pro-B Natriuret Pep 526 H (<=450) pg/mL Urine Color Yellow (YELLOW) Urine Appearance Cloudy (CLEAR) Urine pH 5.0 (5.0-6.5) Ur Specific [place] 1.015 (1.010-1.025) Urine Protein 30 H (NEGATIVE) mg/dL Urine Glucose (UA) Normal (NORMAL) mg/dL Urine Ketones Negative (NEGATIVE) mg/dL Urine Occult Blood Large H (NEGATIVE) Urine Nitrite Positive H (NEGATIVE) Urine Bilirubin Negative (NEGATIVE) Urine Urobilinogen Normal (NEGATIVE) mg/dL Ur Leukocyte Esterase Large H (NEGATIVE) Urine RBC 5-10 H (0-5) Urine WBC 30-40 H (0-5) Ur Squamous Epith Cells Occasional (NS,R,O) Urine Bacteria Many H (NS) Meds: Medications Generic Name Dose Route Start Last Admin Trade Name Freq PRN Reason Stop Dose Admin Acetaminophen 650 mg 10/30/19 21:51 Tylenol PO Q4H PRN Pain (Mild 1-3)/fever Sodium Chloride 1,000 mls @ 100 mls/hr 10/30/19 21:00 10/30/19 21:34 Normal Saline IV 100 mls/hr ASDIRECTED [facility] Administration Piperacillin Sod/Tazobactam 50 mls @ 100 mls/hr 10/30/19 22:00 10/30/19 22:53 Sod 3.375 gm/ Sodium Chloride IV 100 mls/hr Q6H MCKENZIE Administration Vancomycin HCl 1.5 gm/ Premix 300 mls @ 300 mls/hr 10/30/19 23:30 10/30/19 23 :59 IV 10/31/19 00:29 300 mls/hr ONETIME ONE Administration Vancomycin HCl 1.25 gm/ Sodium 250 mls @ 166.667 mls/hr 10/31/19 11:30 Chloride IV Q12H [facility] Ondansetron HCl 4 mg 10/30/19 21:51 Zofran IV Q6H PRN Nausea/Vomiting Saccharomyces Boulardii 250 mg 10/30/19 22:00 10/30/19 22:54 Florastor PO 250 mg BID MCKENZIE Administration Sodium Chloride 10 ml 10/30/19 20:49 Saline Flush FLUSH ASDIRECTED PRN Keep Vein Open Vancomycin HCl 1 dose 10/30/19 22:00 Pharmacy To Dose - Vancomycin .XX ASDIRECTED MCKENZIE Discontinued Medications Generic Name Dose Route Start Last Admin Trade Name Freq PRN Reason Stop Dose Admin Acetaminophen 650 mg 10/30/19 20:51 10/30/19 21:34 Tylenol RECTAL 10/30/19 20:52 Not Given NOW ONE Magnesium Sulfate 2 gm/ Premix 50 mls @ 150 mls/hr 10/30/19 22:06 10/30/19 23 :37 IV 10/30/19 22:25 150 mls/hr ONETIME ONE Administration - Radiology Interpretation Free Text/Narrative:: Portable chest x-ray shows haziness in the left lower lung field consistent with pneumonia. - Re-Assessments/Exams Free Text/Narrative Re-Assessment/Exam: 10/30/19 21:55: Patient's x-ray does show evidence of a left lower lobe pneumonia. She is requiring oxygen at this point. She also has evidence of a urinary tract infection. Blood cultures and urine cultures have been obtained. Blood cell count of 16.3 and she has slightly elevated lactate. Also has markedly elevated CRP. Her magnesium level is 1.5 which is somewhat slightly low as well. With the evidence of with hypoxia, urinary tract infection and SIRS criteria, she will need to with IV antibiotics and IV fluids. She will also need magnesium replacement. This plan of care cannot be safely accomplished as an outpatient at the prison. Need admission for this. The plan of care will require at least 2 midnight hospital stay. I will place interim admission orders and Dr. Rahman will assume care of the patient at 7 AM on 10/31/2019. This was discussed with the patient's daughter by the nursing staff and the patient's daughter is in agreement with plans for admission. Departure - Departure Time of Disposition: 22:05 Disposition: Admitted As Inpatient 66 Condition: Fair Clinical Impression: SIRS (systemic inflammatory response syndrome) Pneumonia Qualifiers: Pneumonia type: due to unspecified organism Laterality: left Lung location: lower lobe of lung Qualified Code(s): J18.9 - Pneumonia, unspecified organism Respiratory failure with hypoxia Qualifiers: Chronicity: acute Qualified Code(s): J96.01 - Acute respiratory failure with hypoxia UTI (urinary tract infection) Qualifiers: Urinary tract infection type: site unspecified Hematuria presence: without hematuria Qualified Code(s): N39.0 - Urinary tract infection, site not specified - Discharge Information Sepsis Event Note - Evaluation Sepsis Screening Result: No Definite Risk - Focused Exam Vital Signs: Vital Signs Temp Pulse Resp BP Pulse Ox 10/30/19 20:55 37.7 C 75 20 165/67 H 97 Date Exam was Performed: 10/31/19 Time Exam was Performed: 00:16 - My Orders Last 24 Hours: My Active Orders 10/30/19 20:49 Chest 1V Frontal [CR] Stat CULTURE URINE [RM] Stat Sodium Chloride 0.9% [Saline Flush] 10 ml FLUSH ASDIRECTED PRN Peripheral IV Insertion Adult [OM.PC] Routine 10/30/19 21:00 Sodium Chloride 0.9% [Normal Saline] 1,000 ml IV ASDIRECTED 10/30/19 21:47 Admission Status [Patient Status] [ADT] Routine 10/30/19 21:51 Bedrest Bedside Commode [RC] ASDIRECTED Blood Glucose Check, Bedside [RC] 07,11,17,21 Height and Weight [RC] UPON Oxygen Therapy [RC] PRN Up to Chair [RC] ASDIRECTED Urinary Catheter Assessment [RC] QSHIFT Vital Signs [RC] 00,08,16 Acetaminophen [Tylenol] 650 mg PO Q4H PRN Ondansetron [Zofran] 4 mg IV Q6H PRN Resuscitation Status Routine 10/30/19 21:52 Intake and Output [RC] 06,14,22 10/30/19 21:55 Consult to Palliative Care [CONS] Routine 10/30/19 22:00 Pharmacy to Dose - Vancomycin 1 dose .XX ASDIRECTED Piperacillin/Tazobactam [Zosyn] 3.375 gm Sodium Chloride 0.9% [Normal Saline] 50 ml IV Q6H Saccharomyces Boulardii [Florastor] 250 mg PO BID 10/30/19 Dinner Clear Liquid Diet [DIET] 10/31/19 05:11 BASIC METABOLIC PANEL,BMP [CHEM] AM CBC W/O DIFF,HEMOGRAM [HEME] AM - Assessment/Plan Last 24 Hours: My Active Orders 10/30/19 20:49 Chest 1V Frontal [CR] Stat CULTURE URINE [RM] Stat Sodium Chloride 0.9% [Saline Flush] 10 ml FLUSH ASDIRECTED PRN Peripheral IV Insertion Adult [OM.PC] Routine 10/30/19 21:00 Sodium Chloride 0.9% [Normal Saline] 1,000 ml IV ASDIRECTED 10/30/19 21:47 Admission Status [Patient Status] [ADT] Routine 10/30/19 21:51 Bedrest Bedside Commode [RC] ASDIRECTED Blood Glucose Check, Bedside [RC] 07,11,17,21 Height and Weight [RC] UPON Oxygen Therapy [RC] PRN Up to Chair [RC] ASDIRECTED Urinary Catheter Assessment [RC] QSHIFT Vital Signs [RC] 00,08,16 Acetaminophen [Tylenol] 650 mg PO Q4H PRN Ondansetron [Zofran] 4 mg IV Q6H PRN Resuscitation Status Routine 10/30/19 21:52 Intake and Output [RC] 06,14,22 10/30/19 21:55 Consult to Palliative Care [CONS] Routine 10/30/19 22:00 Pharmacy to Dose - Vancomycin 1 dose .XX ASDIRECTED Piperacillin/Tazobactam [Zosyn] 3.375 gm Sodium Chloride 0.9% [Normal Saline] 50 ml IV Q6H Saccharomyces Boulardii [Florastor] 250 mg PO BID 10/30/19 Dinner Clear Liquid Diet [DIET] 10/31/19 05:11 BASIC METABOLIC PANEL,BMP [CHEM] AM CBC W/O DIFF,HEMOGRAM [HEME] AM
[2019-10-30] MEDS: Sodium Chloride 0.9% 1,000 ML IV SCH (21:34)
[2019-10-30] MEDS ORDERED: Acetaminophen 325 MG Tab PO PRN (21:51)
[2019-10-30] MEDS ORDERED: Ondansetron 4 MG/2 ML SDV IV PRN (21:51)
[2019-10-30] MEDS ORDERED: Magnesium Sulfate/Water 2 GM in Premix Bag 1 BAG IV ONE (22:06)
[2019-10-30] MEDS: Piperacillin/Tazobactam 3.375 GM in Sodium Chloride 0.9% 50 ML IV SCH (22:53)
[2019-10-30] MEDS: Saccharomyces Boulardii (Probiotic) 250 MG Cap PO SCH (22:54)
[2019-10-31] MEDS: Piperacillin/Tazobactam 3.375 GM in Sodium Chloride 0.9% 50 ML IV SCH ×4 (03:54→22:14)
[2019-10-31] MEDS ORDERED: Oxybutynin 5 MG Tab.ER PO PRN (07:47)
[2019-10-31] MEDS ORDERED: traMADol 50 MG Tab PO PRN (07:47)
--- NOTE | 2019-10-31 07:58 | PCM.HP.2 ---
H&P History of Present Illness - General Date of Service: 10/31/19 Admit Problem/Dx: Admission Diagnosis/Problem Admission Diagnosis/Problem Pneumonia Source of Information: Patient, Old Records History Limitations: Reports: No Limitations - History of Present Illness Initial Comments - Free Text/Narative: This is a 78-year-old female patient that stated yesterday in the long term where she resides. She drank orange drink and then after that started to vomit. She states she feels weak and was brought over to the emergency room. She does have an indwelling catheter. She says they told her that she has pneumonia, bladder infection. She denies fevers, chills, diarrhea, hematochezia, melena. She states she's had a cough for 2 months is minimally productive and no shortness of breath or wheezing. She says she does feel very weak. - Related Data Allergies/Adverse Reactions: Allergies Allergy/AdvReac Type Severity Reaction Status Date / Time lisinopril Allergy Dizziness Verified 08/11/18 22:31 Home Medications: Home Meds Febuxostat [Uloric] 40 mg PO DAILY 08/10/17 [History] Methotrexate 15 mg PO WEEKLY 08/10/17 [History] Sertraline [Zoloft] 25 mg PO DAILY 08/10/17 [History] metFORMIN HCl [Metformin ER Osmotic] 500 mg PO DAILY 08/10/17 [History] Aspirin [Halfprin] 81 mg PO DAILY 08/29/17 [History] Metoprolol Succinate [Toprol Xl] 100 mg PO DAILY 08/29/17 [History] Warfarin [Coumadin] 5 mg PO ASDIRECTED 08/29/17 [History] Acetaminophen [Acetaminophen Extra Strength] 1,000 mg PO BID 10/30/19 [History] Cholecalciferol (Vitamin D3) [Vitamin D3] 1 tab PO DAILY 10/30/19 [History] Ferrous Sulfate 1 tab PO DAILY 10/30/19 [History] Folic Acid 1 mg PO DAILY 10/30/19 [History] Gabapentin [Neurontin] 100 mg PO DAILY 10/30/19 [History] Gabapentin [Neurontin] 200 mg PO BEDTIME 10/30/19 [History] Krill Oil 500 mg PO TID 10/30/19 [History] Losartan [Cozaar] 25 mg PO DAILY 10/30/19 [History] Magnesium Chloride [Mag Delay] 64 mg PO DAILY 10/30/19 [History] Menthol [Biofreeze] 1 applic TOP BID PRN 10/30/19 [History] Miconazole Nitrate [Zeasorb AF] 1 applic TOP DAILY 10/30/19 [History] Mirtazapine 7.5 mg PO BEDTIME 10/30/19 [History] Oxybutynin Chloride [Oxybutynin Chloride ER] 2.5 mg PO TID PRN 10/30/19 [History ] Sennosides/Docusate Sodium [Senna-S 8.6-50 mg Tablet] 1 tab PO TID 10/30/19 [ History] Warfarin Sodium [Coumadin] 2.5 mg PO ASDIRECTED 10/30/19 [History] atorvaSTATin Calcium [Lipitor] 40 mg PO DAILY 10/30/19 [History] hydroCHLOROthiazide [Hydrochlorothiazide] 12.5 mg PO ASDIRECTED 10/30/19 [ History] timoloL maleate [Timoptic 0.25% Ophth Soln] 1 drop EYELF DAILY 10/30/19 [History ] traMADol HCl [Tramadol HCl] 50 mg PO TID PRN 10/30/19 [History] Past Medical History HEENT History: Reports: Impaired Vision Cardiovascular History: Reports: Afib (On chronic anticoagulation with Coumadin) , High Cholesterol, Hypertension Gastrointestinal History: Reports: None Genitourinary History: Reports: Chronic Renal Insuffiency, Other (See Below) Other Genitourinary History: urinary retention, has mackay [employer] History: Reports: Musculoskeletal History: Reports: Arthritis Neurological History: Reports: CVA, TIA 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 Psychiatric History: Reports: Anxiety, Depression Endocrine/Metabolic History: Reports: Diabetes, Type II, Obesity/BMI 30+ Hematologic History: Reports: B12 Deficiency, Iron Deficiency - Infectious Disease History Infectious Disease History: Reports: Chicken Pox - Past Surgical History HEENT Surgical History: Reports: Tonsillectomy Cardiovascular Surgical History: Reports: Pacer Female Surgical History: Reports: Hysterectomy Musculoskeletal Surgical History: Reports: Arthroscopic Knee, Knee Replacement Other Musculoskeletal Surgeries/Procedures:: ankle hardware Social & Family History - Family History Family Medical History: Unobtainable - Tobacco Use Smoking Status *Q: Never Smoker - Caffeine Use Caffeine Use: Reports: Coffee - Recreational Drug Use Recreational Drug Use: No - Living Situation & Occupation Living situation: Reports: , Extended Care Facility (She is a resident of [facility] for the past 2 years.) Occupation: Retired H&P Review of Systems - Review of Systems: Review Of Systems: See Below General: Reports: Weakness. Denies: Fever, Chills, Decreased Appetite HEENT: Reports: No Symptoms Pulmonary: Reports: Cough, Sputum. Denies: Shortness of Breath, Wheezing, Pleuritic Chest Pain, Hemoptysis Cardiovascular: Reports: No Symptoms Gastrointestinal: Reports: Nausea, Vomiting. Denies: Constipation, Diarrhea, Distension, Hematemesis Genitourinary: Reports: No Symptoms, Other (Indwelling catheter) Skin: Reports: No Symptoms Psychiatric: Reports: No Symptoms Neurological: Reports: No Symptoms Hematologic/Lymphatic: Reports: No Symptoms Immunologic: Reports: No Symptoms Exam - Exam Exam: See Below - Vital Signs Vital Signs: Last Vital Signs Temp 99.1 F 10/31/19 05:05 Pulse 60 10/31/19 00:00 Resp 20 10/31/19 00:00 BP 144/76 H 10/31/19 00:00 Pulse Ox 96 10/31/19 03:05 Weight: 271 lb 11.2 oz - Exam General: Alert, Oriented, Cooperative HEENT: Hearing Intact, Posterior Pharynx Clear, TMs Clear Neck: Supple, Trachea Midline Lungs: Clear to Auscultation, Normal Respiratory Effort, Decreased Breath Sounds (Not able to hear much because the body habitus. She is unable to sit up for me to get a good listen.) Cardiovascular: Regular Rate, Regular Rhythm. No: Systolic Murmur GI/Abdominal Exam: Normal Bowel Sounds, Soft, Non-Tender, No Organomegaly, No Distention Extremities: Normal Inspection, Non-Tender, No Pedal Edema Skin: Warm, Dry, Intact Neuro Extensive - Mental Status: Alert, Oriented x3, Normal Cognition Neuro Extensive - Motor, Sensory, Reflexes: No: Normal Gait Psychiatric: Alert - Patient Data Lab Results Last 24 hrs: Laboratory Results - last 24 hr 10/30/19 10/30/19 10/30/19 Range/Units 20:25 21:15 23:05 WBC (4.5-12.0) X10-3/uL RBC (3.23-5.20) x10(6)uL Hgb (11.5-15.5) g/dL Hct (30.0-51.3) % MCV (80-96) fL MCH (27.7-33.6) pg MCHC (32.2-35.4) g/dL RDW (11.5-15.5) % Plt Count (125-369) X10(3)uL Sodium (135-145) mmol/L Potassium (3.5-5.3) mmol/L Chloride (100-110) mmol/L Carbon Dioxide (21-32) mmol/L BUN (7-18) mg/dL Creatinine 1.0 (0.55-1.02) mg/dL Est Cr Clr Drug Dosing 41.72 mL/min Estimated GFR (MDRD) 54 L (>60) BUN/Creatinine Ratio (9-20) Glucose (80-116) mg/dL Calcium (8.6-10.2) mg/dL Magnesium (1.8-2.5) mg/dL NT-Pro-B Natriuret Pep 526 H (<=450) pg/mL Urine Color Yellow (YELLOW) Urine Appearance Cloudy (CLEAR) Urine pH 5.0 (5.0-6.5) Ur Specific [place] 1.015 (1.010-1.025) Urine Protein 30 H (NEGATIVE) mg/dL Urine Glucose (UA) Normal (NORMAL) mg/dL Urine Ketones Negative (NEGATIVE) mg/dL Urine Occult Blood Large H (NEGATIVE) Urine Nitrite Positive H (NEGATIVE) Urine Bilirubin Negative (NEGATIVE) Urine Urobilinogen Normal (NEGATIVE) mg/dL Ur Leukocyte Esterase Large H (NEGATIVE) Urine RBC 5-10 H (0-5) Urine WBC 30-40 H (0-5) Ur Squamous Epith Cells Occasional (NS,R,O) Urine Bacteria Many H (NS) 10/31/19 10/31/19 Range/Units 06:38 06:38 WBC 17.1 H (4.5-12.0) X10-3/uL RBC 4.32 (3.23-5.20) x10(6)uL Hgb 13.5 (11.5-15.5) g/dL Hct 42.5 (30.0-51.3) % MCV 98.4 H (80-96) fL MCH 31.3 (27.7-33.6) pg MCHC 31.8 L (32.2-35.4) g/dL RDW 16.0 H (11.5-15.5) % Plt Count 319 (125-369) X10(3)uL Sodium 139 (135-145) mmol/L Potassium 3.8 (3.5-5.3) mmol/L Chloride 103 (100-110) mmol/L Carbon Dioxide 26 (21-32) mmol/L BUN 15 (7-18) mg/dL Creatinine 1.1 H (0.55-1.02) mg/dL Est Cr Clr Drug Dosing 37.93 mL/min Estimated GFR (MDRD) 48 L (>60) BUN/Creatinine Ratio 13.6 (9-20) Glucose 167 H (80-116) mg/dL Calcium 9.1 (8.6-10.2) mg/dL Magnesium 2.0 (1.8-2.5) mg/dL NT-Pro-B Natriuret Pep (<=450) pg/mL Urine Color (YELLOW) Urine Appearance (CLEAR) Urine pH (5.0-6.5) Ur Specific [place] (1.010-1.025) Urine Protein (NEGATIVE) mg/dL Urine Glucose (UA) (NORMAL) mg/dL Urine Ketones (NEGATIVE) mg/dL Urine Occult Blood (NEGATIVE) Urine Nitrite (NEGATIVE) Urine Bilirubin (NEGATIVE) Urine Urobilinogen (NEGATIVE) mg/dL Ur Leukocyte Esterase (NEGATIVE) Urine RBC (0-5) Urine WBC (0-5) Ur Squamous Epith Cells (NS,R,O) Urine Bacteria (NS) Result Diagrams: 10/31/19 06:38 10/31/19 06:38 Sepsis Event Note - Evaluation Sepsis Screening Result: No Definite Risk - Focused Exam Vital Signs: Vital Signs Temp Temp Pulse Resp BP Pulse Ox 10/31/19 05:05 99.1 F 10/31/19 03:05 98.1 F 96 10/31/19 00:00 98 F 60 20 144/76 H 95 10/30/19 22:30 98 F 60 18 144/76 H 95 10/30/19 20:55 99.8 F 75 20 165/67 H 97 Date Exam was Performed: 10/31/19 Time Exam was Performed: 07:51 - Problem List (1) Influenza B SNOMED Code(s): 62986826 ICD Code: J10.1 - FLU DUE TO OTH IDENT INFLUENZA VIRUS W OTH RESP MANIFEST Status: Acute Current Visit: Yes (2) Palliative care status SNOMED Code(s): 721677282 ICD Code: Z51.5 - ENCOUNTER FOR PALLIATIVE CARE Status: Acute Current Visit: Yes (3) Indwelling urinary catheter present SNOMED Code(s): 181299992, 371722055 ICD Code: Z96.0 - PRESENCE OF UROGENITAL IMPLANTS Status: Acute Current Visit: Yes (4) Pneumonia SNOMED Code(s): 731836694 ICD Code: J18.9 - PNEUMONIA, UNSPECIFIED ORGANISM Status: Acute Current Visit: Yes Qualifiers: Pneumonia type: due to unspecified organism Laterality: left Lung location: lower lobe of lung Qualified Code(s): J18.9 - Pneumonia, unspecified organism (5) Respiratory failure with hypoxia SNOMED Code(s): 93433396107021363 ICD Code: J96.91 - RESPIRATORY FAILURE, UNSPECIFIED WITH HYPOXIA Status: Acute Current Visit: Yes Qualifiers: Chronicity: acute Qualified Code(s): J96.01 - Acute respiratory failure with hypoxia (6) SIRS (systemic inflammatory response syndrome) SNOMED Code(s): 596593683 ICD Code: R65.10 - SIRS OF NON-INFECTIOUS ORIGIN W/O ACUTE ORGAN DYSFUNCTION Status: Acute Current Visit: Yes (7) UTI (urinary tract infection) SNOMED Code(s): 47712208 ICD Code: N39.0 - URINARY TRACT INFECTION, SITE NOT SPECIFIED Status: Acute Current Visit: Yes Qualifiers: Urinary tract infection type: site unspecified Hematuria presence: without hematuria Qualified Code(s): N39.0 - Urinary tract infection, site not specified (8) Acute kidney injury SNOMED Code(s): 66007692, 76866212 ICD Code: N17.9 - ACUTE KIDNEY FAILURE, UNSPECIFIED Status: Acute Current Visit: Yes Problem List Initiated/Reviewed/Updated: Yes Orders Last 24hrs: Active Orders 24 hr Category Date Time Status Admission Status [Patient Status] [ADT] Routine ADT 10/30/19 21:47 Active Accu Check [Blood Glucose Check, Bedside] [RC] BIDMEALS Care 10/31/19 07:51 Active Bedrest Bedside Commode [RC] ASDIRECTED Care 10/30/19 21:51 Active Blood Glucose Check, Bedside [RC] 07,11,17,21 Care 10/30/19 21:51 Active Height and Weight [RC] UPON Care 10/30/19 21:51 Active Intake and Output [RC] 06,14,22 Care 10/30/19 21:52 Active Oxygen Therapy [RC] PRN Care 10/30/19 21:51 Active Up to Chair [RC] ASDIRECTED Care 10/30/19 21:51 Active Urinary Catheter Assessment [RC] QSHIFT Care 10/30/19 21:51 Active Vital Signs [RC] 00,08,16 Care 10/30/19 21:51 Active Consult to Palliative Care [CONS] Routine Cons 10/30/19 21:55 Active Clear Liquid Diet [DIET] Diet 10/30/19 Dinner Ordered CXR [Chest 2V] [CR] Routine Exams 10/31/19 07:50 Ordered Chest 1V Frontal [CR] Stat Exams 10/30/19 20:49 Taken CULTURE URINE [RM] Stat Lab 10/30/19 20:49 Ordered INR,PT,PROTHROMBIN TIME [COAG] DAILY Lab 11/01/19 06:00 Ordered INR,PT,PROTHROMBIN TIME [COAG] DAILY Lab 11/02/19 06:00 Ordered INR,PT,PROTHROMBIN TIME [COAG] DAILY Lab 11/03/19 06:00 Ordered INR,PT,PROTHROMBIN TIME [COAG] DAILY Lab 11/04/19 06:00 Ordered INR,PT,PROTHROMBIN TIME [COAG] DAILY Lab 11/05/19 06:00 Ordered VANCOMYCIN TROUGH [CHEM] Routine Lab 10/31/19 22:30 Ordered Acetaminophen [Tylenol Extra Strength] Med 10/31/19 09:00 Ordered 1,000 mg PO BID Acetaminophen [Tylenol] Med 10/30/19 21:51 Active 650 mg PO Q4H PRN Aspirin [Halfprin] Med 10/31/19 09:00 Ordered 81 mg PO DAILY Cholecalciferol (Vitamin D3) [Vitamin D3] Med 10/31/19 09:00 Ordered 1 tab PO DAILY Docusate Sodium/Sennosides [Senna Plus] Med 10/31/19 09:00 Ordered 1 tab PO TID Febuxostat [Uloric] Med 10/31/19 09:00 Ordered 40 mg PO DAILY Ferrous Sulfate [Ferrous Sulfate] Med 10/31/19 09:00 Ordered 1 tab PO DAILY Folic Acid Med 10/31/19 09:00 Ordered 1 mg PO DAILY Gabapentin [Neurontin] Med 10/31/19 09:00 Ordered 100 mg PO DAILY Gabapentin [Neurontin] Med 10/31/19 21:00 Ordered 200 mg PO BEDTIME Krill Oil [Krill Oil] Med 10/31/19 09:00 Ordered 500 mg PO TID Losartan [Cozaar] Med 10/31/19 09:00 Ordered 25 mg PO DAILY Magnesium Chloride [Mag-64] Med 10/31/19 09:00 Ordered 64 mg PO DAILY Menthol [Biofreeze] Med 10/31/19 07:47 Ordered 1 applic TOP BID PRN Methotrexate Med 10/31/19 08:00 Ordered 15 mg PO WEEKLY Metoprolol Succinate [Toprol XL] Med 10/31/19 09:00 Ordered 100 mg PO DAILY Miconazole Nitrate [Zeasorb AF] Med 10/31/19 09:00 Ordered 1 applic TOP DAILY Mirtazapine [Mirtazapine] Med 10/31/19 21:00 Ordered 7.5 mg PO BEDTIME Ondansetron [Zofran] Med 10/30/19 21:51 Active 4 mg IV Q6H PRN Oxybutynin [Oxybutynin ER] Med 10/31/19 07:47 Ordered 2.5 mg PO TID PRN Pharmacy to Dose - Vancomycin Med 10/30/19 22:00 Pending 1 dose .XX ASDIRECTED Piperacillin/Tazobactam [Zosyn] 3.375 gm Med 10/30/19 22:00 Active Sodium Chloride 0.9% [Normal Saline] 50 ml IV Q6H Saccharomyces Boulardii [Florastor] Med 10/30/19 22:00 Active 250 mg PO BID Sertraline [Zoloft] Med 10/31/19 09:00 Ordered 25 mg PO DAILY Sodium Chloride 0.9% [Normal Saline] 1,000 ml Med 10/30/19 21:00 Active IV ASDIRECTED Sodium Chloride 0.9% [Saline Flush] Med 10/30/19 20:49 Active 10 ml FLUSH ASDIRECTED PRN Vancomycin 1.25 gm Med 10/31/19 11:30 Active Sodium Chloride 0.9% [Normal Saline] 250 ml IV Q12H Warfarin [Coumadin] Med 10/31/19 08:00 Ordered 2.5 mg PO ASDIRECTED Warfarin [Coumadin] Med 10/31/19 08:00 Ordered 5 mg PO ASDIRECTED atorvaSTATin [Lipitor] Med 10/31/19 09:00 Ordered 40 mg PO DAILY hydroCHLOROthiazide Med 10/31/19 08:00 Ordered 12.5 mg PO ASDIRECTED metFORMIN HCl [Metformin ER Osmotic] Med 10/31/19 09:00 Ordered 500 mg PO DAILY timoloL maleate [Timoptic 0.25% Ophth Soln] Med 10/31/19 09:00 Ordered DOSE ml EYELF DAILY traMADol [Ultram] Med 10/31/19 07:47 Ordered 50 mg PO TID PRN Peripheral IV Insertion Adult [OM.PC] Routine Oth 10/30/19 20:49 Ordered Resuscitation Status Routine Resus Stat 10/30/19 21:51 Ordered Medication Orders Acetaminophen (Tylenol) 650 mg PO Q4H PRN PRN Reason: Pain (Mild 1-3)/fever Last Admin: 10/31/19 03:22 Dose: 650 mg Acetaminophen (Tylenol Extra Strength) 1,000 mg PO BID [facility] Aspirin (Halfprin) 81 mg PO DAILY [facility] Atorvastatin Calcium (Lipitor) 40 mg PO DAILY [facility] Febuxostat (Uloric) 40 mg PO DAILY [facility] Folic Acid (Folic Acid) 1 mg PO DAILY [facility] Gabapentin (Neurontin) 100 mg PO DAILY [facility] Gabapentin (Neurontin) 200 mg PO BEDTIME [facility] Hydrochlorothiazide (Hydrochlorothiazide) 12.5 mg PO ASDIRECTED [facility] Sodium Chloride (Normal Saline) 1,000 mls @ 100 mls/hr IV ASDIRECTED [facility] Last Admin: 10/30/19 21:34 Dose: 100 mls/hr Piperacillin Sod/Tazobactam (Sod 3.375 gm/ Sodium Chloride) 50 mls @ 100 mls/ hr IV Q6H [facility] Last Admin: 10/31/19 03:54 Dose: 100 mls/hr Admin: 10/30/19 22:53 Dose: 100 mls/hr Vancomycin HCl 1.25 gm/ Sodium (Chloride) 250 mls @ 166.667 mls/hr IV Q12H [facility] Losartan Potassium (Cozaar) 25 mg PO DAILY [facility] Magnesium Chloride (Mag-64) 64 mg PO DAILY [facility] Methotrexate (Methotrexate) 15 mg PO WEEKLY [facility] Metoprolol Succinate (Toprol Xl) 100 mg PO DAILY [facility] Non-Formulary Medication (Cholecalciferol (Vitamin D3) [Vitamin D3]) 1 tab PO DAILY [facility] Non-Formulary Medication (Ferrous Sulfate [Ferrous Sulfate]) 1 tab PO DAILY [facility] Non-Formulary Medication (Krill Oil [Krill Oil]) 500 mg PO TID [facility] Non-Formulary Medication (Menthol [Biofreeze]) 1 applic TOP BID PRN PRN Reason: Pain Non-Formulary Medication (Metformin Hcl [Metformin Er Osmotic]) 500 mg PO DAILY [facility] Non-Formulary Medication (Miconazole Nitrate [Zeasorb Af]) 1 applic TOP DAILY [facility] Non-Formulary Medication (Mirtazapine [Mirtazapine]) 7.5 mg PO BEDTIME [facility] Ondansetron HCl (Zofran) 4 mg IV Q6H PRN PRN Reason: Nausea/Vomiting Oxybutynin Chloride (Oxybutynin Er) 2.5 mg PO TID PRN PRN Reason: bladder spasm Saccharomyces Boulardii (Florastor) 250 mg PO BID [facility] Last Admin: 10/30/19 22:54 Dose: 250 mg Senna/Docusate Sodium (Senna Plus) 1 tab PO TID [facility] Sertraline HCl (Zoloft) 25 mg PO DAILY [facility] Sodium Chloride (Saline Flush) 10 ml FLUSH ASDIRECTED PRN PRN Reason: Keep Vein Open Timolol Maleate (Timoptic 0.25% Ophth Soln) ml EYELF DAILY [facility] Tramadol HCl (Ultram) 50 mg PO TID PRN PRN Reason: Pain Vancomycin HCl (Pharmacy To Dose - Vancomycin) 1 dose .XX ASDIRECTED [facility] Warfarin Sodium (Coumadin) 2.5 mg PO ASDIRECTED [facility] Warfarin Sodium (Coumadin) 5 mg PO ASDIRECTED [facility] Assessment/Plan Comment:: 1. Admit to inpatient. 2. Clear liquids 3. If possible chest x-ray two-view. She is wheelchair-bound hopefully x-ray staff can do this. If x-ray staff is not able to get a two-view with this patient but not to the x-ray. 4. DNR/DNI 5. VTE with the Coumadin she's currently on. 6. Accu-Cheks twice a day. 7. Zofran for nausea and vomiting. 8. Repeat labs in the a.m. 9. Pharmacy to follow the vancomycin/Coumadin levels. 10. Up in chair as needed. 11. Zosyn/vancomycin for antibodies IV. - Mortality Measure Prognosis:: Good
[2019-10-31] MEDS ORDERED: Ondansetron 4 MG/2 ML SDV IVPUSH PRN (07:59)
[2019-10-31] MEDS ORDERED: Perform Pain Reliever Gel 89 ML Tube TP PRN (08:30)
[2019-10-31] MEDS ORDERED: Miconazole 2% Crm 30 GM Tube TOP SCH (09:00)
[2019-10-31] MEDS ORDERED: Metoprolol Succinate 100 MG Tab.ER PO SCH (09:00)
[2019-10-31] MEDS ORDERED: Non-Formulary Medication 1 Each (Krill Oil [Krill Oil] 500 MG) PO SCH (09:00)
[2019-10-31] MEDS ORDERED: Magnesium Chloride 64 MG Tab.ER PO SCH (09:00)
[2019-10-31] MEDS ORDERED: Losartan 25 MG Tab PO SCH (09:00)
[2019-10-31] MEDS ORDERED: Febuxostat 40 MG Tab PO SCH (09:00)
[2019-10-31] MEDS: Sodium Chloride 0.9% 1,000 ML IV SCH ×2 (09:48→22:13)
[2019-10-31] MEDS: Cholecalciferol (Vitamin D3) 25 MCG Tab PO SCH (09:50)
[2019-10-31] MEDS: Acetaminophen 500 MG Tab PO SCH ×2 (09:50→21:21)
[2019-10-31] MEDS: Gabapentin 100 MG Cap PO SCH ×2 (09:50→21:22)
[2019-10-31] MEDS: Saccharomyces Boulardii (Probiotic) 250 MG Cap PO SCH ×2 (09:50→21:21)
[2019-10-31] MEDS: Folic Acid 1 MG Tab PO SCH (09:50)
[2019-10-31] MEDS: Aspirin 81 MG Tab.EC PO SCH (09:50)
[2019-10-31] MEDS: metFORMIN 500 MG Tab.ER PO SCH (09:50)
[2019-10-31] MEDS: Ferrous Sulfate 325 MG Tab PO SCH (09:50)
[2019-10-31] MEDS: atorvaSTATin 40 MG Tab PO SCH (09:50)
[2019-10-31] MEDS: Timolol Maleate 0.25% Ophth Soln 5 ML Bottle EYELF SCH (10:03)
[2019-10-31] MEDS: Sertraline 25 MG Tab PO SCH (10:15)
[2019-10-31] MEDS ORDERED: Vancomycin 750 MG, Vancomycin 500 MG in Sodium Chloride 0.9% 250 ML IV SCH ×2 (11:30→11:50)
[2019-10-31] MEDS ORDERED: Warfarin 5 MG Tab PO SCH (16:00)
[2019-10-31] MEDS: Mirtazapine 15 MG Tab PO SCH (21:22)
[2019-11-01] MEDS: Piperacillin/Tazobactam 3.375 GM in Sodium Chloride 0.9% 50 ML IV SCH (04:57)
[2019-11-01] MEDS ORDERED: Warfarin Sliding Scale PO SCH (07:00)
[2019-11-01] MEDS ORDERED: Menthol/Zinc Oxide Ointment 113 GM Tube TOP PRN (08:30)
--- NOTE | 2019-11-01 08:30 | PCM.PN ---
- General Info Date of Service: 11/01/19 Admission Dx/Problem (Free Text): Patient states she feels much better today. Still has a cough was not productive. She denies fevers, chills, nausea, vomiting, dysuria, pyuria, hematuria. She does have indwelling catheter. - Patient Data Vitals - Most Recent: Last Vital Signs Temp 98.1 F 11/01/19 00:00 Pulse 78 11/01/19 00:00 Resp 20 11/01/19 00:00 BP 122/61 11/01/19 00:00 Pulse Ox 94 L 11/01/19 00:00 Weight - Most Recent: 271 lb 11.2 oz I&O - Last 24 Hours: Intake & Output 10/31/19 11/01/19 11/01/19 22:59 06:59 14:59 Intake Total 1700 850 Output Total 250 275 Balance 1450 575 Lab Results Last 24 Hours: Laboratory Results - last 24 hr 10/31/19 11/01/19 11/01/19 Range/Units 16:35 05:55 05:55 WBC 15.4 H (4.5-12.0) X10-3/uL RBC 3.83 (3.23-5.20) x10(6)uL Hgb 12.1 (11.5-15.5) g/dL Hct 38.1 (30.0-51.3) % MCV 99.6 H (80-96) fL MCH 31.5 (27.7-33.6) pg MCHC 31.6 L (32.2-35.4) g/dL RDW 16.2 H (11.5-15.5) % Plt Count 267 (125-369) X10(3)uL MPV 9.1 (7.4-10.4) fL Add Manual Diff Yes Neutrophils % (Manual) 80 (46-82) % Lymphocytes % (Manual) 12 L (13-37) % Monocytes % (Manual) 8 (4-12) % Anisocytosis Few PT 30.6 H (9.0-11.1) sec INR 3.04 H (1.00-1.24) Sodium (135-145) mmol/L Potassium (3.5-5.3) mmol/L Chloride (100-110) mmol/L Carbon Dioxide (21-32) mmol/L BUN (7-18) mg/dL Creatinine (0.55-1.02) mg/dL Est Cr Clr Drug Dosing mL/min Estimated GFR (MDRD) (>60) BUN/Creatinine Ratio (9-20) Glucose (80-116) mg/dL POC Glucose 181 H (80-116) mg/dL Calcium (8.6-10.2) mg/dL 11/01/19 11/01/19 Range/Units 05:55 07:30 WBC (4.5-12.0) X10-3/uL RBC (3.23-5.20) x10(6)uL Hgb (11.5-15.5) g/dL Hct (30.0-51.3) % MCV (80-96) fL MCH (27.7-33.6) pg MCHC (32.2-35.4) g/dL RDW (11.5-15.5) % Plt Count (125-369) X10(3)uL MPV (7.4-10.4) fL Add Manual Diff Neutrophils % (Manual) (46-82) % Lymphocytes % (Manual) (13-37) % Monocytes % (Manual) (4-12) % Anisocytosis PT (9.0-11.1) sec INR (1.00-1.24) Sodium 142 (135-145) mmol/L Potassium 3.6 (3.5-5.3) mmol/L Chloride 107 (100-110) mmol/L Carbon Dioxide 26 (21-32) mmol/L BUN 17 (7-18) mg/dL Creatinine 1.0 (0.55-1.02) mg/dL Est Cr Clr Drug Dosing 41.72 mL/min Estimated GFR (MDRD) 54 L (>60) BUN/Creatinine Ratio 17.0 (9-20) Glucose 154 H (80-116) mg/dL POC Glucose 158 H (80-116) mg/dL Calcium 8.5 L (8.6-10.2) mg/dL González Results Last 24 Hours: Microbiology 10/30/19 20:49 Urine Culture - Preliminary Urine, Bernal Cath (Indwelling) Gram Negative Rods Med Orders - Current: Current Medications Acetaminophen (Tylenol) 650 mg PO Q4H PRN PRN Reason: Pain (Mild 1-3)/fever Last Admin: 10/31/19 03:22 Dose: 650 mg Acetaminophen (Tylenol Extra Strength) 1,000 mg PO BID [facility] Last Admin: 10/31/19 21:21 Dose: 1,000 mg Aspirin (Halfprin) 81 mg PO DAILY [facility] Last Admin: 10/31/19 09:50 Dose: 81 mg Atorvastatin Calcium (Lipitor) 40 mg PO DAILY [facility] Last Admin: 10/31/19 09:50 Dose: 40 mg Cholecalciferol (Vitamin D3) 25 mcg PO DAILY [facility] Last Admin: 10/31/19 09:50 Dose: 25 mcg Febuxostat (Uloric) 40 mg PO DAILY [facility] Last Admin: 10/31/19 10:26 Dose: 40 mg Ferrous Sulfate (Ferrous Sulfate) 325 mg PO DAILY [facility] Last Admin: 10/31/19 09:50 Dose: 325 mg Folic Acid (Folic Acid) 1 mg PO DAILY [facility] Last Admin: 10/31/19 09:50 Dose: 1 mg Gabapentin (Neurontin) 100 mg PO DAILY [facility] Last Admin: 10/31/19 09:50 Dose: 100 mg Gabapentin (Neurontin) 200 mg PO BEDTIME [facility] Last Admin: 10/31/19 21:22 Dose: 200 mg Hydrochlorothiazide (Hydrochlorothiazide) 12.5 mg PO MoFr@0900 [facility] Sodium Chloride (Normal Saline) 1,000 mls @ 100 mls/hr IV ASDIRECTED [facility] Last Admin: 10/31/19 22:13 Dose: 100 mls/hr Piperacillin Sod/Tazobactam (Sod 3.375 gm/ Sodium Chloride) 50 mls @ 100 mls/ hr IV Q6H [facility] Last Admin: 11/01/19 04:57 Dose: 100 mls/hr Losartan Potassium (Cozaar) 25 mg PO DAILY [facility] Last Admin: 10/31/19 10:26 Dose: 25 mg Magnesium Chloride (Mag-64) 64 mg PO DAILY [facility] Last Admin: 10/31/19 09:50 Dose: 64 mg Menthol (Perform Pain Reliever) 0 ml TP BID PRN PRN Reason: pain Metformin HCl (Glucophage Xr) 500 mg PO DAILY [facility] Last Admin: 10/31/19 09:50 Dose: 500 mg Methotrexate (Methotrexate) 15 mg PO Q7D [facility] Metoprolol Succinate (Toprol Xl) 100 mg PO DAILY [facility] Last Admin: 10/31/19 10:02 Dose: 100 mg Miconazole (Miconazole 2% Crm) 0 gm TOP DAILY [facility] Last Admin: 10/31/19 10:14 Dose: 1 dose Mirtazapine (Remeron) 7.5 mg PO BEDTIME [facility] Last Admin: 10/31/19 21:22 Dose: 7.5 mg Non-Formulary Medication (Krill Oil [Krill Oil]) 500 mg PO TID [facility] Ondansetron HCl (Zofran) 4 mg IVPUSH Q4H PRN PRN Reason: Nausea/Vomiting Last Admin: 10/31/19 10:12 Dose: 4 mg Oxybutynin Chloride (Oxybutynin Er) 2.5 mg PO TID PRN PRN Reason: bladder spasm Saccharomyces Boulardii (Florastor) 250 mg PO BID [facility] Last Admin: 10/31/19 21:21 Dose: 250 mg Senna/Docusate Sodium (Senna Plus) 1 tab PO TID [facility] Last Admin: 10/31/19 21:22 Dose: 1 tab Sertraline HCl (Zoloft) 25 mg PO DAILY [facility] Last Admin: 10/31/19 10:15 Dose: 25 mg Sodium Chloride (Saline Flush) 10 ml FLUSH ASDIRECTED PRN PRN Reason: Keep Vein Open Last Admin: 10/31/19 22:16 Dose: 10 ml Timolol Maleate (Timoptic 0.25% Ophth Soln) 0 ml EYELF DAILY [facility] Last Admin: 10/31/19 10:03 Dose: 1 drop Tramadol HCl (Ultram) 50 mg PO TID PRN PRN Reason: Pain Vancomycin HCl (Pharmacy To Dose - Vancomycin) 1 dose .XX ASDIRECTED [facility] Warfarin Sodium (Coumadin) 2.5 mg PO MoFr@1600 [facility] Warfarin Sodium (Coumadin) 5 mg PO SuTuWeThSa@1600 [facility] Last Admin: 10/31/19 15:56 Dose: 5 mg Warfarin Sodium (Coumadin Sliding Scale) 1 each PO ASDIRECTED [facility] Discontinued Medications Acetaminophen (Tylenol) 650 mg RECTAL NOW ONE Stop: 10/30/19 20:52 Last Admin: 10/30/19 21:34 Dose: Not Given Febuxostat (Uloric) 40 mg PO DAILY [facility] Last Admin: 10/31/19 19:21 Dose: Not Given Febuxostat (Uloric) 40 mg PO DAILY [facility] Magnesium Sulfate 2 gm/ Premix 50 mls @ 150 mls/hr IV ONETIME ONE Stop: 10/30/19 22:25 Last Admin: 10/30/19 23:37 Dose: 150 mls/hr Vancomycin HCl 1.5 gm/ Premix 300 mls @ 300 mls/hr IV ONETIME ONE Stop: 10/31/19 00:29 Last Admin: 10/30/19 23:59 Dose: 200 mls/hr Vancomycin HCl 1.25 gm/ Sodium (Chloride) 250 mls @ 166.667 mls/hr IV Q12H [facility] Last Admin: 10/31/19 19:22 Dose: Not Given Vancomycin HCl 750 mg/Vancomycin HCl 500 mg/ Sodium Chloride 250 mls @ 166.667 mls/hr IV Q12H [facility] Last Admin: 10/31/19 19:22 Dose: Not Given Vancomycin HCl 750 mg/Vancomycin HCl 500 mg/ Sodium Chloride 250 mls @ 166.667 mls/hr IV Q12H [facility] Last Admin: 10/31/19 12:00 Dose: 166.667 mls/hr Ondansetron HCl (Zofran) 4 mg IV Q6H PRN PRN Reason: Nausea/Vomiting - Exam General: Alert, Oriented, Cooperative Lungs: Clear to Auscultation, Normal Respiratory Effort, Crackles. No: Rales, Rhonchi Cardiovascular: Regular Rate, Regular Rhythm, No Murmurs GI/Abdominal Exam: Normal Bowel Sounds, Soft, Non-Tender, No Distention Extremities: No Pedal Edema Sepsis Event Note - Evaluation Sepsis Screening Result: No Definite Risk - Focused Exam Vital Signs: Vital Signs Temp Pulse Resp BP Pulse Ox 11/01/19 00:00 98.1 F 78 20 122/61 94 L 10/31/19 21:00 98.7 F 96 20 115/65 92 L Date Exam was Performed: 11/01/19 Time Exam was Performed: 08:27 - Problem List & Annotations (1) Influenza B SNOMED Code(s): 37398882 Code(s): J10.1 - FLU DUE TO OTH IDENT INFLUENZA VIRUS W OTH RESP MANIFEST Status: Acute Current Visit: Yes (2) Palliative care status SNOMED Code(s): 265216246 Code(s): Z51.5 - ENCOUNTER FOR PALLIATIVE CARE Status: Acute Current Visit: Yes (3) Indwelling urinary catheter present SNOMED Code(s): 267563763, 241925101 Code(s): Z96.0 - PRESENCE OF UROGENITAL IMPLANTS Status: Acute Current Visit: Yes (4) Respiratory failure with hypoxia SNOMED Code(s): 95924043365465752 Code(s): J96.91 - RESPIRATORY FAILURE, UNSPECIFIED WITH HYPOXIA Status: Acute Current Visit: Yes Qualifiers: Chronicity: acute Qualified Code(s): J96.01 - Acute respiratory failure with hypoxia (5) SIRS (systemic inflammatory response syndrome) SNOMED Code(s): 107029587 Code(s): R65.10 - SIRS OF NON-INFECTIOUS ORIGIN W/O ACUTE ORGAN DYSFUNCTION Status: Acute Current Visit: Yes (6) UTI (urinary tract infection) SNOMED Code(s): 03920947 Code(s): N39.0 - URINARY TRACT INFECTION, SITE NOT SPECIFIED Status: Acute Current Visit: Yes Qualifiers: Urinary tract infection type: site unspecified Hematuria presence: without hematuria Qualified Code(s): N39.0 - Urinary tract infection, site not specified (7) Acute kidney injury SNOMED Code(s): 65067061, 38058530 Code(s): N17.9 - ACUTE KIDNEY FAILURE, UNSPECIFIED Status: Acute Current Visit: Yes (8) Bronchitis SNOMED Code(s): 81659339 Code(s): J40 - BRONCHITIS, NOT SPECIFIED ACUTE OR CHRONIC Status: Acute Current Visit: Yes - Problem List Review Problem List Initiated/Reviewed/Updated: Yes - My Orders Last 24 Hours: My Active Orders 10/31/19 07:47 Oxybutynin [Oxybutynin ER] 2.5 mg PO TID PRN traMADol [Ultram] 50 mg PO TID PRN 10/31/19 07:50 CXR [Chest 2V] [CR] Routine 10/31/19 07:51 Accu Check [Blood Glucose Check, Bedside] [RC] BIDMEALS 10/31/19 07:59 Ondansetron [Zofran] 4 mg IVPUSH Q4H PRN 10/31/19 08:30 Menthol [Perform Pain Reliever] 0 ml TP BID PRN 10/31/19 09:00 Acetaminophen [Tylenol Extra Strength] 1,000 mg PO BID Aspirin [Halfprin] 81 mg PO DAILY Cholecalciferol (Vitamin D3) [Vitamin D3] 25 mcg PO DAILY [facility]ocusate Sodium/Sennosides [Senna Plus] 1 tab PO TID Ferrous Sulfate 325 mg PO DAILY Folic Acid 1 mg PO DAILY Gabapentin [Neurontin] 100 mg PO DAILY Krill Oil [Krill Oil] 500 mg PO TID Losartan [Cozaar] 25 mg PO DAILY Magnesium Chloride [Mag-64] 64 mg PO DAILY Metoprolol Succinate [Toprol XL] 100 mg PO DAILY Miconazole [Miconazole 2% Crm] 0 gm TOP DAILY Sertraline [Zoloft] 25 mg PO DAILY atorvaSTATin [Lipitor] 40 mg PO DAILY metFORMIN [Glucophage XR] 500 mg PO DAILY timoloL maleate [Timoptic 0.25% Ophth Soln] 0 ml EYELF DAILY 10/31/19 10:30 Febuxostat [Uloric] 40 mg PO DAILY 10/31/19 16:00 Warfarin [Coumadin] 5 mg PO SuTuWeThSa@1600 10/31/19 21:00 Gabapentin [Neurontin] 200 mg PO BEDTIME Mirtazapine [Remeron] 7.5 mg PO BEDTIME 10/31/19 Dinner Consistent Carbohydrate Diet [DIET] 11/01/19 07:00 Warfarin Sliding Scale [Coumadin Sliding Scale] 1 each PO ASDIRECTED 11/01/19 09:00 hydroCHLOROthiazide 12.5 mg PO MoFr@0900 11/01/19 16:00 Warfarin [Coumadin] 2.5 mg PO MoFr@1600 11/02/19 06:00 INR,PT,PROTHROMBIN TIME [COAG] DAILY 11/02/19 09:00 Methotrexate 15 mg PO Q7D 11/03/19 06:00 INR,PT,PROTHROMBIN TIME [COAG] DAILY 11/04/19 06:00 INR,PT,PROTHROMBIN TIME [COAG] DAILY 11/05/19 06:00 INR,PT,PROTHROMBIN TIME [COAG] DAILY - Plan Plan:: 1. Advance diet yesterday. 2. Urine grew Escherichia coli waiting for sensitivity 3. Up in chair 4. The patient has adequate by mouth intake consider DC IV 5. Continue current antibiotics and current care.
[2019-11-01] MEDS ORDERED: Oxybutynin 5 MG Tab PO PRN (08:50)
[2019-11-01] MEDS ORDERED: Perform Pain Reliever Gel 89 ML Tube TP PRN (08:53)
[2019-11-01] MEDS ORDERED: Calcium Carbonate 500 MG Tab.Chew PO PRN (09:00)
[2019-11-01] MEDS ORDERED: Miconazole 2% Crm 30 GM Tube TOP PRN (09:00)
[2019-11-01] MEDS ORDERED: Magnesium Chloride 64 MG Tab.ER PO SCH (09:00)
[2019-11-01] MEDS ORDERED: Hydrochlorothiazide 12.5 MG Cap PO SCH (09:00)
[2019-11-01] MEDS: Sodium Chloride 0.9% 1,000 ML IV SCH ×2 (09:30→19:38)
[2019-11-01] MEDS: Saccharomyces Boulardii (Probiotic) 250 MG Cap PO SCH ×2 (09:36→20:38)
[2019-11-01] MEDS: Levofloxacin 500 MG Tab PO SCH (09:36)
[2019-11-01] MEDS: Ferrous Sulfate 325 MG Tab PO SCH (09:36)
[2019-11-01] MEDS: Metoprolol Succinate 50 MG Tab.ER PO SCH (09:37)
[2019-11-01] MEDS: Aspirin 81 MG Tab.EC PO SCH (09:37)
[2019-11-01] MEDS: atorvaSTATin 40 MG Tab PO SCH (09:37)
[2019-11-01] MEDS: Folic Acid 1 MG Tab PO SCH (09:37)
[2019-11-01] MEDS: metFORMIN 500 MG Tab.ER PO SCH (09:37)
[2019-11-01] MEDS: Sertraline 25 MG Tab PO SCH (09:38)
[2019-11-01] MEDS: Febuxostat 40 MG Tab PO SCH (09:38)
[2019-11-01] MEDS: Acetaminophen 500 MG Tab PO SCH ×2 (09:38→20:38)
[2019-11-01] MEDS: Cholecalciferol (Vitamin D3) 25 MCG Tab PO SCH (09:38)
[2019-11-01] MEDS: Miconazole 2% Crm 30 GM Tube TOP SCH ×2 (09:39→20:40)
[2019-11-01] MEDS: Timolol Maleate 0.25% Ophth Soln 5 ML Bottle EYELF SCH (09:39)
[2019-11-01] MEDS: Gabapentin 100 MG Cap PO SCH ×2 (09:42→20:43)
[2019-11-01] MEDS: Magnesium Chloride 64 MG Tab.ER PO SCH ×2 (14:19→20:38)
[2019-11-01] MEDS ORDERED: Warfarin 2.5 MG Tab PO ONE (16:00)
[2019-11-01] MEDS ORDERED: Warfarin 2.5 MG Tab PO SCH (16:00)
[2019-11-01] MEDS: Mirtazapine 15 MG Tab PO SCH (20:40)
[2019-11-01] MEDS ORDERED: Losartan 50 MG Tab PO SCH (21:00)
[2019-11-02] MEDS: Sodium Chloride 0.9% 1,000 ML IV SCH (05:10)
--- NOTE | 2019-11-02 07:53 | PCM.PN ---
- General Info Date of Service: 11/02/19 Admission Dx/Problem (Free Text): Patient stated she has little nausea after I saw yesterday but resolved. She has not had it since. Last night she had a little abdominal pain she states the nurses is hot packs on it and it resolved. She is asymptomatic today. She still has a little cough but that's improved. She has indwelling catheter and has no sensation of urination. She denies fevers, chills, runny nose. - Patient Data Vitals - Most Recent: Last Vital Signs Temp 99 F 11/02/19 00:00 Pulse 75 11/02/19 00:00 Resp 18 11/02/19 00:00 BP 148/96 H 11/01/19 20:41 Pulse Ox 97 11/02/19 00:00 Weight - Most Recent: 271 lb 11.2 oz I&O - Last 24 Hours: Intake & Output 11/01/19 11/02/19 11/02/19 22:59 06:59 14:59 Intake Total 959 516 Output Total 350 300 Balance 609 216 Lab Results Last 24 Hours: Laboratory Results - last 24 hr 11/01/19 11/02/19 Range/Units 17:36 06:25 PT 35.4 H* (9.0-11.1) sec INR 3.56 H (1.00-1.24) POC Glucose 133 H (80-116) mg/dL Gonz[facility]lez Results Last 24 Hours: Microbiology 10/30/19 20:49 Urine Culture - Preliminary Urine, Bernal Cath (Indwelling) Gram Negative Rods Gram Negative Rods#2 Med Orders - Current: Current Medications Acetaminophen (Tylenol) 650 mg PO Q4H PRN PRN Reason: Pain (Mild 1-3)/fever Last Admin: 10/31/19 03:22 Dose: 650 mg Acetaminophen (Tylenol Extra Strength) 1,000 mg PO BID [facility] Last Admin: 11/01/19 20:38 Dose: 1,000 mg Aspirin (Halfprin) 81 mg PO DAILY [facility] Last Admin: 11/01/19 09:37 Dose: 81 mg Atorvastatin Calcium (Lipitor) 40 mg PO DAILY [facility] Last Admin: 11/01/19 09:37 Dose: 40 mg Calamine/Phenol (Calmoseptine) 0 gm TOP BID PRN PRN Reason: SKIN PROTECTANT Calcium Carbonate/Glycine (Tums) 500 mg PO BID PRN PRN Reason: INDIGESTION Cholecalciferol (Vitamin D3) 25 mcg PO DAILY [facility] Last Admin: 11/01/19 09:38 Dose: 25 mcg Febuxostat (Uloric) 40 mg PO DAILY [facility] Last Admin: 11/01/19 09:38 Dose: 40 mg Ferrous Sulfate (Ferrous Sulfate) 325 mg PO DAILY [facility] Last Admin: 11/01/19 09:36 Dose: 325 mg Folic Acid (Folic Acid) 1 mg PO DAILY [facility] Last Admin: 11/01/19 09:37 Dose: 1 mg Gabapentin (Neurontin) 100 mg PO DAILY [facility] Last Admin: 11/01/19 09:42 Dose: 100 mg Gabapentin (Neurontin) 200 mg PO BEDTIME [facility] Last Admin: 11/01/19 20:43 Dose: 200 mg Hydrochlorothiazide (Hydrochlorothiazide) 12.5 mg PO MoFr@0900 [facility] Last Admin: 11/01/19 09:37 Dose: 12.5 mg Sodium Chloride (Normal Saline) 1,000 mls @ 100 mls/hr IV ASDIRECTED [facility] Last Admin: 11/02/19 05:10 Dose: 100 mls/hr Levofloxacin (Levaquin) 500 mg PO Q24H [facility] Last Admin: 11/01/19 09:36 Dose: 500 mg Losartan Potassium (Cozaar) 50 mg PO BEDTIME [facility] Last Admin: 11/01/19 20:41 Dose: 50 mg Magnesium Chloride (Mag-64) 64 mg PO BID@1200,2100 [facility] Last Admin: 11/01/19 20:38 Dose: 64 mg Menthol (Perform Pain Reliever) 0 ml TP BID PRN PRN Reason: pain Metformin HCl (Glucophage Xr) 500 mg PO DAILY [facility] Last Admin: 11/01/19 09:37 Dose: 500 mg Methotrexate (Methotrexate) 15 mg PO Q7D [facility] Metoprolol Succinate (Toprol Xl) 150 mg PO DAILY [facility] Last Admin: 11/01/19 09:37 Dose: 150 mg Miconazole (Miconazole 2% Crm) 0 gm TOP BID PRN PRN Reason: YEAST Miconazole (Miconazole 2% Crm) 0 gm TOP BID [facility] Last Admin: 11/01/19 20:40 Dose: 1 applic Mirtazapine (Remeron) 7.5 mg PO BEDTIME [facility] Last Admin: 11/01/19 20:40 Dose: 7.5 mg Oxybutynin Chloride (Oxybutynin) 2.5 mg PO TID PRN PRN Reason: BLADDER SPASMS Saccharomyces Boulardii (Florastor) 250 mg PO BID [facility] Last Admin: 11/01/19 20:38 Dose: 250 mg Senna/Docusate Sodium (Senna Plus) 1 tab PO BID [facility] Last Admin: 11/01/19 20:39 Dose: 1 tab Sertraline HCl (Zoloft) 25 mg PO DAILY [facility] Last Admin: 11/01/19 09:38 Dose: 25 mg Sodium Chloride (Saline Flush) 10 ml FLUSH ASDIRECTED PRN PRN Reason: Keep Vein Open Last Admin: 10/31/19 22:16 Dose: 10 ml Timolol Maleate (Timoptic 0.25% Ophth Soln) 0 ml EYELF DAILY [facility] Last Admin: 11/01/19 09:39 Dose: 1 drop Tramadol HCl (Ultram) 50 mg PO TID PRN PRN Reason: Pain Warfarin Sodium (Coumadin Sliding Scale) 1 each PO ASDIRECTED [facility] Warfarin Sodium (Coumadin) 2.5 mg PO ONETIME ONE Stop: 11/02/19 16:01 Discontinued Medications Acetaminophen (Tylenol) 650 mg RECTAL NOW ONE Stop: 10/30/19 20:52 Last Admin: 10/30/19 21:34 Dose: Not Given Febuxostat (Uloric) 40 mg PO DAILY [facility] Last Admin: 10/31/19 19:21 Dose: Not Given Febuxostat (Uloric) 40 mg PO DAILY [facility] Febuxostat (Uloric) 40 mg PO DAILY [facility] Last Admin: 10/31/19 10:26 Dose: 40 mg Piperacillin Sod/Tazobactam (Sod 3.375 gm/ Sodium Chloride) 50 mls @ 100 mls/ hr IV Q6H [facility] Last Admin: 11/01/19 04:57 Dose: 100 mls/hr Magnesium Sulfate 2 gm/ Premix 50 mls @ 150 mls/hr IV ONETIME ONE Stop: 10/30/19 22:25 Last Admin: 10/30/19 23:37 Dose: 150 mls/hr Vancomycin HCl 1.5 gm/ Premix 300 mls @ 300 mls/hr IV ONETIME ONE Stop: 10/31/19 00:29 Last Admin: 10/30/19 23:59 Dose: 200 mls/hr Vancomycin HCl 1.25 gm/ Sodium (Chloride) 250 mls @ 166.667 mls/hr IV Q12H [facility] Last Admin: 10/31/19 19:22 Dose: Not Given Vancomycin HCl 750 mg/Vancomycin HCl 500 mg/ Sodium Chloride 250 mls @ 166.667 mls/hr IV Q12H [facility] Last Admin: 10/31/19 19:22 Dose: Not Given Vancomycin HCl 750 mg/Vancomycin HCl 500 mg/ Sodium Chloride 250 mls @ 166.667 mls/hr IV Q12H [facility] Last Admin: 10/31/19 12:00 Dose: 166.667 mls/hr Losartan Potassium (Cozaar) 25 mg PO DAILY [facility] Last Admin: 10/31/19 10:26 Dose: 25 mg Magnesium Chloride (Mag-64) 64 mg PO DAILY [facility] Last Admin: 10/31/19 09:50 Dose: 64 mg Menthol (Perform Pain Reliever) 0 ml TP BID PRN PRN Reason: pain Metoprolol Succinate (Toprol Xl) 100 mg PO DAILY [facility] Last Admin: 10/31/19 10:02 Dose: 100 mg Miconazole (Miconazole 2% Crm) 0 gm TOP DAILY [facility] Last Admin: 10/31/19 10:14 Dose: 1 dose Ondansetron HCl (Zofran) 4 mg IV Q6H PRN PRN Reason: Nausea/Vomiting Ondansetron HCl (Zofran) 4 mg IVPUSH Q4H PRN PRN Reason: Nausea/Vomiting Last Admin: 10/31/19 10:12 Dose: 4 mg Oxybutynin Chloride (Oxybutynin Er) 2.5 mg PO TID PRN PRN Reason: bladder spasm Senna/Docusate Sodium (Senna Plus) 1 tab PO TID [facility] Last Admin: 10/31/19 21:22 Dose: 1 tab Vancomycin HCl (Pharmacy To Dose - Vancomycin) 1 dose .XX ASDIRECTED [facility] Warfarin Sodium (Coumadin) 2.5 mg PO MoFr@1600 [facility] Warfarin Sodium (Coumadin) 5 mg PO SuTuWeThSa@1600 [facility] Last Admin: 10/31/19 15:56 Dose: 5 mg Warfarin Sodium (Coumadin) 1.25 mg PO ONETIME ONE Stop: 11/01/19 16:01 Last Admin: 11/01/19 16:05 Dose: 1.25 mg - Exam General: Alert, Oriented, Cooperative Lungs: Clear to Auscultation, Normal Respiratory Effort Cardiovascular: Regular Rate, Regular Rhythm, No Murmurs GI/Abdominal Exam: Normal Bowel Sounds, Soft, Non-Tender Sepsis Event Note - Evaluation Sepsis Screening Result: No Definite Risk - Focused Exam Vital Signs: Vital Signs Temp Pulse Resp BP Pulse Ox 11/02/19 00:00 99 F 75 18 97 11/01/19 20:41 148/96 H Date Exam was Performed: 11/02/19 Time Exam was Performed: 07:52 - Problem List & Annotations (1) Influenza B SNOMED Code(s): 21453491 Code(s): J10.1 - FLU DUE TO OTH IDENT INFLUENZA VIRUS W OTH RESP MANIFEST Status: Acute Current Visit: Yes (2) Palliative care status SNOMED Code(s): 653422305 Code(s): Z51.5 - ENCOUNTER FOR PALLIATIVE CARE Status: Acute Current Visit: Yes (3) Indwelling urinary catheter present SNOMED Code(s): 812707178, 597158132 Code(s): Z96.0 - PRESENCE OF UROGENITAL IMPLANTS Status: Acute Current Visit: Yes (4) Respiratory failure with hypoxia SNOMED Code(s): 95089894168899466 Code(s): J96.91 - RESPIRATORY FAILURE, UNSPECIFIED WITH HYPOXIA Status: Acute Current Visit: Yes Qualifiers: Chronicity: acute Qualified Code(s): J96.01 - Acute respiratory failure with hypoxia (5) SIRS (systemic inflammatory response syndrome) SNOMED Code(s): 656019620 Code(s): R65.10 - SIRS OF NON-INFECTIOUS ORIGIN W/O ACUTE ORGAN DYSFUNCTION Status: Acute Current Visit: Yes (6) UTI (urinary tract infection) SNOMED Code(s): 91800743 Code(s): N39.0 - URINARY TRACT INFECTION, SITE NOT SPECIFIED Status: Acute Current Visit: Yes Qualifiers: Urinary tract infection type: site unspecified Hematuria presence: without hematuria Qualified Code(s): N39.0 - Urinary tract infection, site not specified (7) Acute kidney injury SNOMED Code(s): 78737519, 26483273 Code(s): N17.9 - ACUTE KIDNEY FAILURE, UNSPECIFIED Status: Acute Current Visit: Yes (8) Bronchitis SNOMED Code(s): 24890434 Code(s): J40 - BRONCHITIS, NOT SPECIFIED ACUTE OR CHRONIC Status: Acute Current Visit: Yes - Problem List Review Problem List Initiated/Reviewed/Updated: Yes - My Orders Last 24 Hours: My Active Orders 11/01/19 07:00 Warfarin Sliding Scale [Coumadin Sliding Scale] 1 each PO ASDIRECTED 11/01/19 08:30 Menthol/Zinc Oxide [Calmoseptine] 0 gm TOP BID PRN 11/01/19 08:45 levoFLOXacin [Levaquin] 500 mg PO Q24H 11/01/19 08:50 Oxybutynin 2.5 mg PO TID PRN 11/01/19 08:53 Menthol [Perform Pain Reliever] 0 ml TP BID PRN 11/01/19 09:00 Calcium Carbonate [Tums] 500 mg PO BID PRN Docusate Sodium/Sennosides [Senna Plus] 1 tab PO BID Febuxostat [Uloric] 40 mg PO DAILY Metoprolol Succinate [Toprol XL] 150 mg PO DAILY Miconazole [Miconazole 2% Crm] 0 gm TOP BID Miconazole [Miconazole 2% Crm] 0 gm TOP BID PRN hydroCHLOROthiazide 12.5 mg PO MoFr@0900 11/01/19 12:00 Magnesium Chloride [Mag-64] 64 mg PO BID@1200,2100 11/01/19 21:00 Losartan [Cozaar] 50 mg PO BEDTIME 11/02/19 09:00 Methotrexate 15 mg PO Q7D 11/02/19 16:00 Warfarin [Coumadin] 2.5 mg PO ONETIME ONE 11/03/19 06:00 INR,PT,PROTHROMBIN TIME [COAG] DAILY 11/04/19 06:00 INR,PT,PROTHROMBIN TIME [COAG] DAILY 11/05/19 06:00 INR,PT,PROTHROMBIN TIME [COAG] DAILY - Plan Plan:: 1. Urine grew out Escherichia coli in 2 different cultures. Waiting for sensitivity. 2. This was a candidate sensitivity and the patient does not regress she can be discharged.
[2019-11-02] MEDS ORDERED: Methotrexate 2.5 MG Tab PO SCH (09:00)
[2019-11-02] MEDS: metFORMIN 500 MG Tab.ER PO SCH (09:02)
[2019-11-02] MEDS: Saccharomyces Boulardii (Probiotic) 250 MG Cap PO SCH (09:02)
[2019-11-02] MEDS: Ferrous Sulfate 325 MG Tab PO SCH (09:02)
[2019-11-02] MEDS: Acetaminophen 500 MG Tab PO SCH (09:02)
[2019-11-02] MEDS: Levofloxacin 500 MG Tab PO SCH (09:02)
[2019-11-02] MEDS: Folic Acid 1 MG Tab PO SCH (09:03)
[2019-11-02] MEDS: Metoprolol Succinate 50 MG Tab.ER PO SCH (09:03)
[2019-11-02] MEDS: Aspirin 81 MG Tab.EC PO SCH (09:03)
[2019-11-02] MEDS: atorvaSTATin 40 MG Tab PO SCH (09:03)
[2019-11-02] MEDS: Febuxostat 40 MG Tab PO SCH (09:03)
[2019-11-02] MEDS: Timolol Maleate 0.25% Ophth Soln 5 ML Bottle EYELF SCH (09:04)
[2019-11-02] MEDS: Cholecalciferol (Vitamin D3) 25 MCG Tab PO SCH (09:04)
[2019-11-02] MEDS: Sertraline 25 MG Tab PO SCH (09:04)
[2019-11-02] MEDS: Miconazole 2% Crm 30 GM Tube TOP SCH (09:04)
[2019-11-02] MEDS: Gabapentin 100 MG Cap PO SCH (09:09)
[2019-11-02] MEDS: Magnesium Chloride 64 MG Tab.ER PO SCH (12:52)
--- NOTE | 2019-11-02 14:22 | PCM.DCSUM1 ---
Discharge Summary - Hospital Course Free Text/Narrative:: Hospital course-patient was admitted place on antibiotics for pneumonia. Her urine was positive but she does have a history of suprapubic catheter. She was having nausea and vomiting. She says she's had a cough for couple months this nonproductive and doesn't cause shortness of breath. She denies fevers, chills. I repeated her chest x-ray because as one view and the radiologist read as no signs of CHF or pneumonia. So most likely cause was from the urine. She was treated with Levaquin and culture was waited 4. The next day she will nausea was much better with her mentation and by discharge day she was doing well with no nausea or vomiting. Culture grew out Klebsiella and Pseudomonas both sensitive to Levaquin. Will [facility] back to [facility]. Brief History: This is a 78-year-old female patient that stated yesterday in the [facility] where she resides. She drank orange drink and then after that started to vomit. She states she feels weak and was brought over to the emergency room. She does have an indwelling catheter. She says they told her that she has pneumonia, bladder infection. She denies fevers, chills, diarrhea, hematochezia, melena. She states she's had a cough for 2 months is minimally productive and no shortness of breath or wheezing. She says she does feel very weak. Diagnosis: Stroke: No - Discharge Data Discharge Date: 11/02/19 Discharge Disposition: DC/Tfer to [facility], [place] 63 Condition: Stable - Referral to Home Health Primary Care Physician: PCP None - Discharge Diagnosis/Problem(s) (1) Influenza B SNOMED Code(s): 16988790 ICD Code: J10.1 - FLU DUE TO OTH IDENT INFLUENZA VIRUS W OTH RESP MANIFEST Status: Acute Current Visit: Yes (2) Palliative care status SNOMED Code(s): 113637296 ICD Code: Z51.5 - ENCOUNTER FOR PALLIATIVE CARE Status: Acute Current Visit: Yes (3) Indwelling urinary catheter present SNOMED Code(s): 164314645, 685819792 ICD Code: Z96.0 - PRESENCE OF UROGENITAL IMPLANTS Status: Acute Current Visit: Yes (4) Respiratory failure with hypoxia SNOMED Code(s): 00373505876304958 ICD Code: J96.91 - RESPIRATORY FAILURE, UNSPECIFIED WITH HYPOXIA Status: Acute Current Visit: Yes Qualifiers: Chronicity: acute Qualified Code(s): J96.01 - Acute respiratory failure with hypoxia (5) SIRS (systemic inflammatory response syndrome) SNOMED Code(s): 234564480 ICD Code: R65.10 - SIRS OF NON-INFECTIOUS ORIGIN W/O ACUTE ORGAN DYSFUNCTION Status: Acute Current Visit: Yes (6) UTI (urinary tract infection) SNOMED Code(s): 92275418 ICD Code: N39.0 - URINARY TRACT INFECTION, SITE NOT SPECIFIED Status: Acute Current Visit: Yes Qualifiers: Urinary tract infection type: site unspecified Hematuria presence: without hematuria Qualified Code(s): N39.0 - Urinary tract infection, site not specified (7) Acute kidney injury SNOMED Code(s): 95828297, 78350043 ICD Code: N17.9 - ACUTE KIDNEY FAILURE, UNSPECIFIED Status: Acute Current Visit: Yes (8) Bronchitis SNOMED Code(s): 61314924 ICD Code: J40 - BRONCHITIS, NOT SPECIFIED ACUTE OR CHRONIC Status: Acute Current Visit: Yes - Patient Instructions Diet: Regular Diet as Tolerated Activity, Other: wheel chair Driving: Do Not Drive Showering/Bathing: May Shower Notify Provider of: Fever, Increased Pain - Discharge Plan Prescriptions/Med Rec: levoFLOXacin [Levaquin] 500 mg PO Q24H #5 tablet Home Medications: Home Meds Febuxostat [Uloric] 40 mg PO DAILY 08/10/17 [History] Methotrexate 15 mg PO TU 08/10/17 [History] Sertraline [Zoloft] 25 mg PO DAILY 08/10/17 [History] metFORMIN HCl [Metformin ER Osmotic] 500 mg PO DAILY 08/10/17 [History] Aspirin [Halfprin] 81 mg PO DAILY 08/29/17 [History] Metoprolol Succinate [Toprol Xl] 150 mg PO DAILY 08/29/17 [History] Warfarin [Coumadin] 5 mg PO SUTUWETHSA 08/29/17 [History] Acetaminophen [Acetaminophen Extra Strength] 1,000 mg PO BID 10/30/19 [History] Cholecalciferol (Vitamin D3) [Vitamin D3] 1,000 unit PO DAILY 10/30/19 [History] Ferrous Sulfate 324 mg PO DAILY 10/30/19 [History] Folic Acid 1 mg PO DAILY 10/30/19 [History] Gabapentin [Neurontin] 100 mg PO DAILY 10/30/19 [History] Gabapentin [Neurontin] 200 mg PO BEDTIME 10/30/19 [History] Krill Oil 500 mg PO BID 10/30/19 [History] Losartan [Cozaar] 50 mg PO BEDTIME 10/30/19 [History] Magnesium Chloride [Mag Delay] 64 mg PO BID 10/30/19 [History] Menthol [Biofreeze] 1 applic TOP BID PRN 10/30/19 [History] Miconazole Nitrate [Zeasorb AF] 1 applic TOP BID 10/30/19 [History] Mirtazapine 7.5 mg PO BEDTIME 10/30/19 [History] Oxybutynin Chloride [Oxybutynin Chloride ER] 2.5 mg PO TID PRN 10/30/19 [History ] Sennosides/Docusate Sodium [Senna-S 8.6-50 mg Tablet] 1 tab PO BID 10/30/19 [ History] Warfarin Sodium [Coumadin] 2.5 mg PO MOFR 10/30/19 [History] atorvaSTATin Calcium [Lipitor] 40 mg PO DAILY 10/30/19 [History] hydroCHLOROthiazide [Hydrochlorothiazide] 12.5 mg PO MOFR 10/30/19 [History] timoloL maleate [Timoptic 0.25% Ophth Soln] 1 drop EYELF DAILY 10/30/19 [History ] traMADol HCl [Tramadol HCl] 50 mg PO TID PRN 10/30/19 [History] Calcium Carbonate [Tums] 750 mg PO BID PRN 11/01/19 [History] Menthol/Zinc Oxide [Calmoseptine] 1 applic TOP BID PRN 11/01/19 [History] Miconazole Nitrate [Zeasorb AF] 1 applic TOP BID PRN 11/01/19 [History] lidocaine HCL [Lidocaine HCl] 1 applic TOP BID PRN 11/01/19 [History] levoFLOXacin [Levaquin] 500 mg PO Q24H #5 tablet 11/02/19 [Rx] Forms: ED Department Discharge Referrals: PCP,None [Primary Care Provider] - - Discharge Summary/Plan Comment DC Time >30 min.: No - Patient Data Vitals - Most Recent: Last Vital Signs Temp 98.5 F 11/02/19 08:00 Pulse 88 11/02/19 09:03 Resp 18 11/02/19 08:00 BP 132/71 11/02/19 09:03 Pulse Ox 97 11/02/19 08:00 Weight - Most Recent: 271 lb 11.2 oz I&O - Last 24 hours: Intake & Output 11/01/19 11/02/19 11/02/19 22:59 06:59 14:59 Intake Total 959 516 332 Output Total 350 300 Balance 609 216 332 Lab Results - Last 24 hrs: Laboratory Results - last 24 hr 11/01/19 11/02/19 Range/Units 17:36 06:25 PT 35.4 H* (9.0-11.1) sec INR 3.56 H (1.00-1.24) POC Glucose 133 H (80-116) mg/dL EVELYNE Results - Last 24 hrs: Microbiology 10/30/19 20:49 Urine Culture - Final Urine, Bernal Cath (Indwelling) Klebsiella Pneumoniae Pseudomonas Aeruginosa Med Orders - Current: Current Medications Acetaminophen (Tylenol) 650 mg PO Q4H PRN PRN Reason: Pain (Mild 1-3)/fever Last Admin: 10/31/19 03:22 Dose: 650 mg Acetaminophen (Tylenol Extra Strength) 1,000 mg PO BID [facility] Last Admin: 11/02/19 09:02 Dose: 1,000 mg Aspirin (Halfprin) 81 mg PO DAILY [facility] Last Admin: 11/02/19 09:03 Dose: 81 mg Atorvastatin Calcium (Lipitor) 40 mg PO DAILY [facility] Last Admin: 11/02/19 09:03 Dose: 40 mg Calamine/Phenol (Calmoseptine) 0 gm TOP BID PRN PRN Reason: SKIN PROTECTANT Calcium Carbonate/Glycine (Tums) 500 mg PO BID PRN PRN Reason: INDIGESTION Cholecalciferol (Vitamin D3) 25 mcg PO DAILY [facility] Last Admin: 11/02/19 09:04 Dose: 25 mcg Febuxostat (Uloric) 40 mg PO DAILY [facility] Last Admin: 11/02/19 09:03 Dose: 40 mg Ferrous Sulfate (Ferrous Sulfate) 325 mg PO DAILY [facility] Last Admin: 11/02/19 09:02 Dose: 325 mg Folic Acid (Folic Acid) 1 mg PO DAILY [facility] Last Admin: 11/02/19 09:03 Dose: 1 mg Gabapentin (Neurontin) 100 mg PO DAILY [facility] Last Admin: 11/02/19 09:09 Dose: 100 mg Gabapentin (Neurontin) 200 mg PO BEDTIME [facility] Last Admin: 11/01/19 20:43 Dose: 200 mg Hydrochlorothiazide (Hydrochlorothiazide) 12.5 mg PO MoFr@0900 [facility] Last Admin: 11/01/19 09:37 Dose: 12.5 mg Levofloxacin (Levaquin) 500 mg PO Q24H [facility] Stop: 11/07/19 08:46 Last Admin: 11/02/19 09:02 Dose: 500 mg Losartan Potassium (Cozaar) 50 mg PO BEDTIME [facility] Last Admin: 11/01/19 20:41 Dose: 50 mg Magnesium Chloride (Mag-64) 64 mg PO BID@1200,2100 [facility] Last Admin: 11/02/19 12:52 Dose: 64 mg Menthol (Perform Pain Reliever) 0 ml TP BID PRN PRN Reason: pain Metformin HCl (Glucophage Xr) 500 mg PO DAILY [facility] Last Admin: 11/02/19 09:02 Dose: 500 mg Methotrexate (Methotrexate) 15 mg PO Q7D [facility] Last Admin: 11/02/19 09:02 Dose: 15 mg Metoprolol Succinate (Toprol Xl) 150 mg PO DAILY [facility] Last Admin: 11/02/19 09:03 Dose: 150 mg Miconazole (Miconazole 2% Crm) 0 gm TOP BID PRN PRN Reason: YEAST Miconazole (Miconazole 2% Crm) 0 gm TOP BID [facility] Last Admin: 11/02/19 09:04 Dose: 1 applic Mirtazapine (Remeron) 7.5 mg PO BEDTIME [facility] Last Admin: 11/01/19 20:40 Dose: 7.5 mg Oxybutynin Chloride (Oxybutynin) 2.5 mg PO TID PRN PRN Reason: BLADDER SPASMS Saccharomyces Boulardii (Florastor) 250 mg PO BID [facility] Last Admin: 11/02/19 09:02 Dose: 250 mg Senna/Docusate Sodium (Senna Plus) 1 tab PO BID [facility] Last Admin: 11/02/19 09:02 Dose: 1 tab Sertraline HCl (Zoloft) 25 mg PO DAILY [facility] Last Admin: 11/02/19 09:04 Dose: 25 mg Sodium Chloride (Saline Flush) 10 ml FLUSH ASDIRECTED PRN PRN Reason: Keep Vein Open Last Admin: 10/31/19 22:16 Dose: 10 ml Timolol Maleate (Timoptic 0.25% Ophth Soln) 0 ml EYELF DAILY [facility] Last Admin: 11/02/19 09:04 Dose: 1 drop Tramadol HCl (Ultram) 50 mg PO TID PRN PRN Reason: Pain Warfarin Sodium (Coumadin Sliding Scale) 1 each PO ASDIRECTED MCKENZIE Discontinued Medications Acetaminophen (Tylenol) 650 mg RECTAL NOW ONE Stop: 10/30/19 20:52 Last Admin: 10/30/19 21:34 Dose: Not Given Febuxostat (Uloric) 40 mg PO DAILY [facility] Last Admin: 10/31/19 19:21 Dose: Not Given Febuxostat (Uloric) 40 mg PO DAILY [facility] Febuxostat (Uloric) 40 mg PO DAILY [facility] Last Admin: 10/31/19 10:26 Dose: 40 mg Sodium Chloride (Normal Saline) 1,000 mls @ 100 mls/hr IV ASDIRECTED [facility] Last Admin: 11/02/19 05:10 Dose: 100 mls/hr Piperacillin Sod/Tazobactam (Sod 3.375 gm/ Sodium Chloride) 50 mls @ 100 mls/ hr IV Q6H [facility] Last Admin: 11/01/19 04:57 Dose: 100 mls/hr Magnesium Sulfate 2 gm/ Premix 50 mls @ 150 mls/hr IV ONETIME ONE Stop: 10/30/19 22:25 Last Admin: 10/30/19 23:37 Dose: 150 mls/hr Vancomycin HCl 1.5 gm/ Premix 300 mls @ 300 mls/hr IV ONETIME ONE Stop: 10/31/19 00:29 Last Admin: 10/30/19 23:59 Dose: 200 mls/hr Vancomycin HCl 1.25 gm/ Sodium (Chloride) 250 mls @ 166.667 mls/hr IV Q12H [facility] Last Admin: 10/31/19 19:22 Dose: Not Given Vancomycin HCl 750 mg/Vancomycin HCl 500 mg/ Sodium Chloride 250 mls @ 166.667 mls/hr IV Q12H [facility] Last Admin: 10/31/19 19:22 Dose: Not Given Vancomycin HCl 750 mg/Vancomycin HCl 500 mg/ Sodium Chloride 250 mls @ 166.667 mls/hr IV Q12H [facility] Last Admin: 10/31/19 12:00 Dose: 166.667 mls/hr Losartan Potassium (Cozaar) 25 mg PO DAILY [facility] Last Admin: 10/31/19 10:26 Dose: 25 mg Magnesium Chloride (Mag-64) 64 mg PO DAILY [facility] Last Admin: 10/31/19 09:50 Dose: 64 mg Menthol (Perform Pain Reliever) 0 ml TP BID PRN PRN Reason: pain Metoprolol Succinate (Toprol Xl) 100 mg PO DAILY [facility] Last Admin: 10/31/19 10:02 Dose: 100 mg Miconazole (Miconazole 2% Crm) 0 gm TOP DAILY [facility] Last Admin: 10/31/19 10:14 Dose: 1 dose Ondansetron HCl (Zofran) 4 mg IV Q6H PRN PRN Reason: Nausea/Vomiting Ondansetron HCl (Zofran) 4 mg IVPUSH Q4H PRN PRN Reason: Nausea/Vomiting Last Admin: 10/31/19 10:12 Dose: 4 mg Oxybutynin Chloride (Oxybutynin Er) 2.5 mg PO TID PRN PRN Reason: bladder spasm Senna/Docusate Sodium (Senna Plus) 1 tab PO TID [facility] Last Admin: 10/31/19 21:22 Dose: 1 tab Vancomycin HCl (Pharmacy To Dose - Vancomycin) 1 dose .XX ASDIRECTED [facility] Warfarin Sodium (Coumadin) 2.5 mg PO MoFr@1600 [facility] Warfarin Sodium (Coumadin) 5 mg PO SuTuWeThSa@1600 [facility] Last Admin: 10/31/19 15:56 Dose: 5 mg Warfarin Sodium (Coumadin) 1.25 mg PO ONETIME ONE Stop: 11/01/19 16:01 Last Admin: 11/01/19 16:05 Dose: 1.25 mg Warfarin Sodium (Coumadin) 2.5 mg PO ONETIME ONE Stop: 11/02/19 16:01
[2019-11-02] MEDS ORDERED: Warfarin 2.5 MG Tab PO ONE (16:00)
== END 2019-11-02 15:10 | DRG 698 ==
LOC: FB.ED 20:45 → FB.MS 22:06
PROVIDERS: ADMIT Emergency Medicine; ATTEND Family Medicine
DX: T83.511A Infection and inflammatory reaction due to indwelling urethral catheter, initial encounter (principal); J96.01 Acute respiratory failure with hypoxia; J18.9 Pneumonia, unspecified organism; N17.9 Acute kidney failure, unspecified; I69.954 Hemiplegia and hemiparesis following unspecified cerebrovascular disease affecting left non-dominant side; R65.10 Systemic inflammatory response syndrome (SIRS) of non-infectious origin without acute organ dysfunction; Z51.5 Encounter for palliative care; Z68.42 Body mass index [BMI] 45.0-49.9, adult; E11.22 Type 2 diabetes mellitus with diabetic chronic kidney disease; J10.1 Influenza due to other identified influenza virus with other respiratory manifestations; M19.90 Unspecified osteoarthritis, unspecified site; N39.0 Urinary tract infection, site not specified; Z93.6 Other artificial openings of urinary tract status; I69.354 Hemiplegia and hemiparesis following cerebral infarction affecting left non-dominant side; Z96.0 Presence of urogenital implants; Z95.0 Presence of cardiac pacemaker; J40 Bronchitis, not specified as acute or chronic; H54.7 Unspecified visual loss; I48.91 Unspecified atrial fibrillation; E78.00 Pure hypercholesterolemia, unspecified; I12.9 Hypertensive chronic kidney disease with stage 1 through stage 4 chronic kidney disease, or unspecified chronic kidney disease; N18.9 Chronic kidney disease, unspecified; Z66 Do not resuscitate; R33.9 Retention of urine, unspecified; B96.1 Klebsiella pneumoniae [K. pneumoniae] as the cause of diseases classified elsewhere; B96.5 Pseudomonas (aeruginosa) (mallei) (pseudomallei) as the cause of diseases classified elsewhere; F41.9 Anxiety disorder, unspecified; F32.9 Major depressive disorder, single episode, unspecified; Z96.659 Presence of unspecified artificial knee joint; E11.9 Type 2 diabetes mellitus without complications; E66.9 Obesity, unspecified; E53.8 Deficiency of other specified B group vitamins; E61.1 Iron deficiency; Z90.89 Acquired absence of other organs; Z90.710 Acquired absence of both cervix and uterus; Z79.01 Long term (current) use of anticoagulants; Z79.899 Other long term (current) drug therapy; Z79.82 Long term (current) use of aspirin; Z79.84 Long term (current) use of oral hypoglycemic drugs; Z88.8 Allergy status to other drugs, medicaments and biological substances; Z99.3 Dependence on wheelchair; Y83.8 Other surgical procedures as the cause of abnormal reaction of the patient, or of later complication, without mention of misadventure at the time of the procedure
CPT/HCPCS: 36415; 71045; 81001; 83880; 87086; 87088 ×2; 87186 ×2; 99285; J7030; 71046; 80048; 80053; 82565; 82803; 82962; 83605; 83735; 84484; 85025; 85027; 85610; 86140; 87040; 87804; 87804-59; 93005; A9270-GY; J2405; J2543; J3370; J3475; J7050; J8610; U0002

== ENCOUNTER 2019-11-03 11:12 | Emergency (ER) | payer MEDICARE ==
[2019-11-03] MEDS ORDERED: Furosemide 80 MG Tab PO ONE (11:55)
--- NOTE | 2019-11-03 11:59 | EDM.PDOC ---
ED HPI GENERAL MEDICAL PROBLEM - General Chief Complaint: Respiratory Problem Stated Complaint: SOB Time Seen by Provider: 11/03/19 11:40 Source of Information: Reports: Patient, Skilled Nursing Records, Old Records History Limitations: Reports: No Limitations - History of Present Illness INITIAL COMMENTS - FREE TEXT/NARRATIVE: Nursing staff at [facility] report 12# wt gain since recent hospitalization at [facility] for L lower lobe pneumonia. She was on IV fluids for 3 days before discharge, and staff were reporting some SOB today, although patient says she is stable. There is no fever, chills or sweats, and no sxs of chest pain or palpitations. Her renal function was baseline and normal for age at last hospitalization. Her 02 sats were 96% on RA upon admission to ED. - Related Data Allergies Allergy/AdvReac Type Severity Reaction Status Date / Time lisinopril Allergy Dizziness Verified 08/11/18 22:31 Home Meds: Home Meds Febuxostat [Uloric] 40 mg PO DAILY 08/10/17 [History] Methotrexate 15 mg PO TU 08/10/17 [History] Sertraline [Zoloft] 25 mg PO DAILY 08/10/17 [History] metFORMIN HCl [Metformin ER Osmotic] 500 mg PO DAILY 08/10/17 [History] Aspirin [Halfprin] 81 mg PO DAILY 08/29/17 [History] Metoprolol Succinate [Toprol Xl] 150 mg PO DAILY 08/29/17 [History] Warfarin [Coumadin] 5 mg PO SUTUWETHSA 08/29/17 [History] Acetaminophen [Acetaminophen Extra Strength] 1,000 mg PO BID 10/30/19 [History] Cholecalciferol (Vitamin D3) [Vitamin D3] 1,000 unit PO DAILY 10/30/19 [History] Ferrous Sulfate 324 mg PO DAILY 10/30/19 [History] Folic Acid 1 mg PO DAILY 10/30/19 [History] Gabapentin [Neurontin] 100 mg PO DAILY 10/30/19 [History] Gabapentin [Neurontin] 200 mg PO BEDTIME 10/30/19 [History] Krill Oil 500 mg PO BID 10/30/19 [History] Losartan [Cozaar] 50 mg PO BEDTIME 10/30/19 [History] Magnesium Chloride [Mag Delay] 64 mg PO BID 10/30/19 [History] Menthol [Biofreeze] 1 applic TOP BID PRN 10/30/19 [History] Miconazole Nitrate [Zeasorb AF] 1 applic TOP BID 10/30/19 [History] Mirtazapine 7.5 mg PO BEDTIME 10/30/19 [History] Oxybutynin Chloride [Oxybutynin Chloride ER] 2.5 mg PO TID PRN 10/30/19 [History ] Sennosides/Docusate Sodium [Senna-S 8.6-50 mg Tablet] 1 tab PO BID 10/30/19 [ History] Warfarin Sodium [Coumadin] 2.5 mg PO MOFR 10/30/19 [History] atorvaSTATin Calcium [Lipitor] 40 mg PO DAILY 10/30/19 [History] hydroCHLOROthiazide [Hydrochlorothiazide] 12.5 mg PO MOFR 10/30/19 [History] timoloL maleate [Timoptic 0.25% Ophth Soln] 1 drop EYELF DAILY 10/30/19 [History ] traMADol HCl [Tramadol HCl] 50 mg PO TID PRN 10/30/19 [History] Calcium Carbonate [Tums] 750 mg PO BID PRN 11/01/19 [History] Menthol/Zinc Oxide [Calmoseptine] 1 applic TOP BID PRN 11/01/19 [History] Miconazole Nitrate [Zeasorb AF] 1 applic TOP BID PRN 11/01/19 [History] lidocaine HCL [Lidocaine HCl] 1 applic TOP BID PRN 11/01/19 [History] levoFLOXacin [Levaquin] 500 mg PO Q24H #5 tablet 11/02/19 [Rx] Past Medical History HEENT History: Reports: Impaired Vision Cardiovascular History: Reports: Afib (On chronic anticoagulation with Coumadin) , High Cholesterol, Hypertension Gastrointestinal History: Reports: None Genitourinary History: Reports: Chronic Renal Insuffiency, Other (See Below) Other Genitourinary History: urinary retention, has mackay [employer]IAN History: Reports: Musculoskeletal History: Reports: Arthritis Neurological History: Reports: CVA, TIA 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 Psychiatric History: Reports: Anxiety, Depression Endocrine/Metabolic History: Reports: Diabetes, Type II, Obesity/BMI 30+ Hematologic History: Reports: B12 Deficiency, Iron Deficiency - Infectious Disease History Infectious Disease History: Reports: Chicken Pox - Past Surgical History HEENT Surgical History: Reports: Tonsillectomy Cardiovascular Surgical History: Reports: Pacer Female Surgical History: Reports: Hysterectomy Musculoskeletal Surgical History: Reports: Arthroscopic Knee, Knee Replacement Other Musculoskeletal Surgeries/Procedures:: ankle hardware Social & Family History - Family History Family Medical History: Unobtainable - Caffeine Use Caffeine Use: Reports: Coffee - Living Situation & Occupation Living situation: Reports: , Extended Care Facility (She is a resident of [facility] for the past 2 years.) Occupation: Retired ED ROS GENERAL - Review of Systems Review Of Systems: Comprehensive ROS is negative, except as noted in HPI. ED EXAM, GENERAL - Physical Exam Exam: See Below Exam Limited By: No Limitations General Appearance: Alert, WD/WN, No Apparent Distress, Obese Eye Exam: Bilateral Eye: EOMI, Normal Inspection, PERRL Ears: Normal External Exam Nose: Normal Inspection Throat/Mouth: Normal Inspection, Normal Oropharynx Head: Normocephalic Neck: Normal Inspection, Supple, Non-Tender, Full Range of Motion Respiratory/Chest: No Respiratory Distress, No Accessory Muscle Use, Decreased Breath Sounds, Crackles Cardiovascular: Normal Peripheral Pulses, Regular Rate, Rhythm, No Murmur GI/Abdominal: Soft, Non-Tender, No Organomegaly, No Distention, No Mass Back Exam: Normal Inspection Extremities: Normal Inspection Neurological: Alert, Oriented, CN II-XII Intact, Normal Cognition, No Motor/ Sensory Deficits Psychiatric: Normal Affect, Normal Mood Skin Exam: Warm, Dry, Intact, Normal Color Lymphatic: No Adenopathy Course - Vital Signs Text/Narrative:: Following assessment, a CMP noted Cr 1.0, BUN 16, Troponin I 51. The BNP: 4140. Nani was empirically administered Lasix 80 mg po, with an output of 400 ml of kristen urine in 1.5 hours. There is no prior report of BNP for comparison. - Orders/Labs/Meds Orders: Active Orders 24 hr Category Date Time Status PRO B-TYPE NATRIUR PEPT,BNPPRO [CHEM] Stat Lab 11/03/19 12:00 Received Labs: Laboratory Tests 11/03/19 11/03/19 11/03/19 Range/Units 12:00 12:00 12:00 Sodium 141 (135-145) mmol/L Potassium 4.2 (3.5-5.3) mmol/L Chloride 107 (100-110) mmol/L Carbon Dioxide 27 (21-32) mmol/L BUN 16 (7-18) mg/dL Creatinine 1.0 (0.55-1.02) mg/dL Est Cr Clr Drug Dosing TNP Estimated GFR (MDRD) 54 L (>60) BUN/Creatinine Ratio 16.0 (9-20) Glucose 145 H (80-116) mg/dL Calcium 9.2 (8.6-10.2) mg/dL Total Bilirubin 0.5 (0.1-1.3) mg/dL AST 24 D (5-25) IU/L ALT 14 D (12-36) U/L Alkaline Phosphatase 69 (56-112) IU/L Troponin I 51.0 (4.0-60.3) pg/mL NT-Pro-B Natriuret Pep 4140 H* (<=450) pg/mL Total Protein 6.8 (6.0-8.0) g/dL Albumin 2.3 L (3.2-4.6) g/dL Globulin 4.5 g/dL Albumin/Globulin Ratio 0.5 Meds: Medications Discontinued Medications Generic Name Dose Route Start Last Admin Trade Name Freq PRN Reason Stop Dose Admin Furosemide 80 mg 11/03/19 11:55 11/03/19 12:07 Lasix PO 11/03/19 11:56 80 mg ONETIME ONE Administration Departure - Departure Time of Disposition: 13:43 Disposition: DC/Tfer to [facility] 63 Condition: Fair Clinical Impression: Congestive heart disease Qualifiers: Heart failure type: unspecified Heart failure chronicity: unspecified Qualified Code(s): I50.9 - Heart failure, unspecified - Discharge Information *PRESCRIPTION DRUG MONITORING PROGRAM REVIEWED*: Not Applicable *COPY OF PRESCRIPTION DRUG MONITORING REPORT IN PATIENT BRYAN: Not Applicable Referrals: PCP,None [Primary Care Provider] - Forms: ED Department Discharge Sepsis Event Note - Focused Exam Date Exam was Performed: 11/03/19 Time Exam was Performed: 13:42 - Problem List & Annotations (1) Congestive heart disease SNOMED Code(s): 98113522 Code(s): I50.9 - HEART FAILURE, UNSPECIFIED Status: Acute Current Visit: Yes Annotation/Comment:: Incipient CHF. I will begin Lasix 40 mg bid and have PCP recheck BNP and status early next week. Qualifiers: Heart failure type: unspecified Heart failure chronicity: unspecified Qualified Code(s): I50.9 - Heart failure, unspecified - Problem List Review Problem List Initiated/Reviewed/Updated: Yes - My Orders Last 24 Hours: My Active Orders 11/03/19 12:00 PRO B-TYPE NATRIUR PEPT,BNPPRO [CHEM] Stat - Assessment/Plan Last 24 Hours: My Active Orders 11/03/19 12:00 PRO B-TYPE NATRIUR PEPT,BNPPRO [CHEM] Stat Plan: Follow up with PCP next week.
== END 2019-11-03 14:05 ==
LOC: FB.ED 11:12
DX: I13.0 Hypertensive heart and chronic kidney disease with heart failure and stage 1 through stage 4 chronic kidney disease, or unspecified chronic kidney disease (principal); E11.22 Type 2 diabetes mellitus with diabetic chronic kidney disease; I50.9 Heart failure, unspecified; N18.9 Chronic kidney disease, unspecified; E66.9 Obesity, unspecified; F41.9 Anxiety disorder, unspecified; F32.9 Major depressive disorder, single episode, unspecified; I48.91 Unspecified atrial fibrillation; Z88.8 Allergy status to other drugs, medicaments and biological substances; Z79.899 Other long term (current) drug therapy; Z79.82 Long term (current) use of aspirin; Z86.73 Personal history of transient ischemic attack (TIA), and cerebral infarction without residual deficits; Z68.42 Body mass index [BMI] 45.0-49.9, adult
CPT/HCPCS: 36415; 80053; 83880; 84484; 99285; A9270

== ENCOUNTER 2020-03-28 14:13 | Emergency (ER) | payer MEDICARE ==
--- NOTE | 2020-03-28 15:13 | EDM.PDOC ---
ED HPI GENERAL MEDICAL PROBLEM - General Chief Complaint: Lower Extremity Injury/Pain Stated Complaint: FALL Time Seen by Provider: 03/28/20 15:11 Source of Information: Reports: Patient History Limitations: Reports: No Limitations - History of Present Illness INITIAL COMMENTS - FREE TEXT/NARRATIVE: Patient states she was dropped on the floor while being transferred at [facility] today. She was there undergoing a lap jeanne. She complains of mild right wrist pain. No other injuries or complaints. Onset: Today Location: Reports: Upper Extremity, Right - Related Data Allergies Allergy/AdvReac Type Severity Reaction Status Date / Time lisinopril Allergy Dizziness Verified 03/28/20 14:32 Home Meds: Home Meds Febuxostat [Uloric] 40 mg PO DAILY 08/10/17 [History] Methotrexate 15 mg PO TU 08/10/17 [History] Sertraline [Zoloft] 25 mg PO DAILY 08/10/17 [History] metFORMIN HCl [Metformin ER Osmotic] 500 mg PO DAILY 08/10/17 [History] Aspirin [Halfprin] 81 mg PO DAILY 08/29/17 [History] Metoprolol Succinate [Toprol Xl] 150 mg PO DAILY 08/29/17 [History] Warfarin [Coumadin] 5 mg PO SUTUWETHSA 08/29/17 [History] Acetaminophen [Acetaminophen Extra Strength] 1,000 mg PO BID 10/30/19 [History] Cholecalciferol (Vitamin D3) [Vitamin D3] 1,000 unit PO DAILY 10/30/19 [History] Ferrous Sulfate 324 mg PO DAILY 10/30/19 [History] Folic Acid 1 mg PO DAILY 10/30/19 [History] Gabapentin [Neurontin] 100 mg PO DAILY 10/30/19 [History] Gabapentin [Neurontin] 200 mg PO BEDTIME 10/30/19 [History] Krill Oil 500 mg PO BID 10/30/19 [History] Losartan [Cozaar] 50 mg PO BEDTIME 10/30/19 [History] Magnesium Chloride [Mag Delay] 64 mg PO BID 10/30/19 [History] Menthol [Biofreeze] 1 applic TOP BID PRN 10/30/19 [History] Miconazole Nitrate [Zeasorb AF] 1 applic TOP BID 10/30/19 [History] Mirtazapine 7.5 mg PO BEDTIME 10/30/19 [History] Oxybutynin Chloride [Oxybutynin Chloride ER] 2.5 mg PO TID PRN 10/30/19 [History] Sennosides/Docusate Sodium [Senna-S 8.6-50 mg Tablet] 1 tab PO BID 10/30/19 [History] Warfarin Sodium [Coumadin] 2.5 mg PO MOFR 10/30/19 [History] atorvaSTATin Calcium [Lipitor] 40 mg PO DAILY 10/30/19 [History] hydroCHLOROthiazide [Hydrochlorothiazide] 12.5 mg PO MOFR 10/30/19 [History] timoloL maleate [Timoptic 0.25% Ophth Soln] 1 drop EYELF DAILY 10/30/19 [History] traMADol HCl [Tramadol HCl] 50 mg PO TID PRN 10/30/19 [History] Calcium Carbonate [Tums] 750 mg PO BID PRN 11/01/19 [History] Menthol/Zinc Oxide [Calmoseptine] 1 applic TOP BID PRN 11/01/19 [History] Miconazole Nitrate [Zeasorb AF] 1 applic TOP BID PRN 11/01/19 [History] lidocaine HCL [Lidocaine HCl] 1 applic TOP BID PRN 11/01/19 [History] levoFLOXacin [Levaquin] 500 mg PO Q24H #5 tablet 11/02/19 [Rx] Past Medical History HEENT History: Reports: Impaired Vision Cardiovascular History: Reports: Afib (On chronic anticoagulation with Coumadin), High Cholesterol, Hypertension Gastrointestinal History: Reports: None Genitourinary History: Reports: Chronic Renal Insuffiency, Other (See Below) Other Genitourinary History: urinary retention, 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: Musculoskeletal History: Reports: Arthritis Neurological History: Reports: CVA, TIA 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 Psychiatric History: Reports: Anxiety, Depression Endocrine/Metabolic History: Reports: Diabetes, Type II, Obesity/BMI 30+ Hematologic History: Reports: B12 Deficiency, Iron Deficiency - Infectious Disease History Infectious Disease History: Reports: Chicken Pox - Past Surgical History HEENT Surgical History: Reports: Tonsillectomy Cardiovascular Surgical History: Reports: Pacer Female Surgical History: Reports: Hysterectomy Musculoskeletal Surgical History: Reports: Arthroscopic Knee, Knee Replacement Other Musculoskeletal Surgeries/Procedures:: ankle hardware Social & Family History - Family History Family Medical History: Unobtainable - Caffeine Use Caffeine Use: Reports: Coffee - Living Situation & Occupation Living situation: Reports: , Extended Care Facility (She is a resident of [facility] for the past 2 years.) Occupation: Retired Review of Systems - Review of Systems Review Of Systems: Comprehensive ROS is negative, except as noted in HPI. ED EXAM, GENERAL - Physical Exam Exam: See Below Exam Limited By: No Limitations General Appearance: Alert, WD/WN, No Apparent Distress Head: Atraumatic, Normocephalic Neck: Full Range of Motion Respiratory/Chest: No Respiratory Distress Peripheral Pulses: 2+: Radial (R) Extremities: Normal Capillary Refill, Other (mild tenderness to right wrist, normal ROM) Neurological: Alert, No Motor/Sensory Deficits Skin Exam: Warm, Dry, Intact Course - Vital Signs Last Recorded V/S: Last Vital Signs Temp 36.9 C 03/28/20 14:25 Pulse 76 03/28/20 14:25 Resp 18 03/28/20 14:25 BP 128/48 L 03/28/20 14:25 Pulse Ox 98 03/28/20 14:25 - Orders/Labs/Meds Orders: Active Orders 24 hr Category Date Time Status Wrist Comp Min 3V Rt [CR] Stat Exams 03/28/20 15:10 Taken - Radiology Interpretation Free Text/Narrative:: Right Wrist Xray: No fracture or dislocation. (ED provider interpretation) Departure - Departure Time of Disposition: 15:58 Disposition: DC/Tfer to SNF 03 Condition: Good Clinical Impression: Contusion of right wrist, initial encounter - Discharge Information *PRESCRIPTION DRUG MONITORING PROGRAM REVIEWED*: No *COPY OF PRESCRIPTION DRUG MONITORING REPORT IN PATIENT BRYAN: Not Applicable Referrals: oHlden Patrick MD [Primary Care Provider] - Forms: ED Department Discharge Additional Instructions: Take Tylenol as needed. Follow up if symptoms don't resolve in 1 week. Sepsis Event Note (ED) - Evaluation Sepsis Screening Result: No Definite Risk - Focused Exam Vital Signs: Vital Signs Temp Pulse Resp BP Pulse Ox 03/28/20 14:25 36.9 C 76 18 128/48 L 98 - My Orders Last 24 Hours: My Active Orders 03/28/20 15:10 Wrist Comp Min 3V Rt [CR] Stat - Assessment/Plan Last 24 Hours: My Active Orders 03/28/20 15:10 Wrist Comp Min 3V Rt [CR] Stat
--- NOTE | 2020-03-28 16:15 | CR ---
INDICATION: Injury, fell, bruising lower hand/upper wrist. RIGHT WRIST: Three views of the right wrist were obtained 03/28/2020 - no comparison. Diminished bone density is suggested, compatible with osteoporosis or osteomalacia - correlate clinically. Osteoarthritic changes are noted at digital joints and at the 1st metacarpocarpal joint. Soft tissue swelling is noted at the dorsum of the hand at the level of the metacarpophalangeal joints. A definite fracture site or dislocation was not identified. IMPRESSION: 1. No acute fracture or dislocation. 2. Demineralization compatible with osteoporosis or osteomalacia - correlate clinically. 3. Osteoarthritis. MTDD
== END 2020-03-28 16:50 ==
LOC: FB.ED 14:13
DX: S60.211A Contusion of right wrist, initial encounter (principal); I48.91 Unspecified atrial fibrillation; E78.00 Pure hypercholesterolemia, unspecified; I12.9 Hypertensive chronic kidney disease with stage 1 through stage 4 chronic kidney disease, or unspecified chronic kidney disease; E11.22 Type 2 diabetes mellitus with diabetic chronic kidney disease; N18.9 Chronic kidney disease, unspecified; E66.9 Obesity, unspecified; F41.9 Anxiety disorder, unspecified; F32.9 Major depressive disorder, single episode, unspecified; Z88.8 Allergy status to other drugs, medicaments and biological substances; Z79.82 Long term (current) use of aspirin; Z79.84 Long term (current) use of oral hypoglycemic drugs; Z79.899 Other long term (current) drug therapy; Z90.710 Acquired absence of both cervix and uterus; Z68.41 Body mass index [BMI] 40.0-44.9, adult; W17.89XA Other fall from one level to another, initial encounter
CPT/HCPCS: 73110-RT; 99283-25

== ENCOUNTER 2020-06-25 07:20 | Observation (INO) | payer MEDICARE ==
[2020-06-25] MEDS ORDERED: Albuterol/Ipratropium 3.0-0.5 MG/3 ML Neb Soln NEB ONE (07:36)
[2020-06-25] MEDS ORDERED: Furosemide 20 MG/2 ML VIAL IVPUSH ONE ×2 (07:37→18:00)
[2020-06-25] MEDS ORDERED: Furosemide 40 MG/4 ML VIAL IVPUSH ONE (07:40)
--- NOTE | 2020-06-25 07:44 | EDM.PDOC ---
ED HPI GENERAL MEDICAL PROBLEM - General Chief Complaint: Respiratory Problem Stated Complaint: sob Time Seen by Provider: 06/25/20 07:39 Source of Information: Reports: Patient History Limitations: Reports: No Limitations - History of Present Illness INITIAL COMMENTS - FREE TEXT/NARRATIVE: Presents with cough and SOB since 0700 today. Denies chest pain, or F/C. Has been treated by general surgery recently for an upper back abscess. PMHx includes Afib, CHF, and T2DM. Onset: Today Duration: Hour(s): (1) - Related Data Allergies Allergy/AdvReac Type Severity Reaction Status Date / Time lisinopril Allergy Dizziness Verified 03/28/20 14:32 Home Meds: Home Meds Febuxostat [Uloric] 40 mg PO DAILY 08/10/17 [History] Methotrexate 15 mg PO TU 08/10/17 [History] Sertraline [Zoloft] 25 mg PO DAILY 08/10/17 [History] metFORMIN HCl [Metformin ER Osmotic] 500 mg PO DAILY 08/10/17 [History] Aspirin [Halfprin] 81 mg PO DAILY 08/29/17 [History] Metoprolol Succinate [Toprol Xl] 150 mg PO DAILY 08/29/17 [History] Warfarin [Coumadin] 5 mg PO SUTUWETHSA 08/29/17 [History] Acetaminophen [Acetaminophen Extra Strength] 1,000 mg PO BID 10/30/19 [History] Cholecalciferol (Vitamin D3) [Vitamin D3] 1,000 unit PO DAILY 10/30/19 [History] Ferrous Sulfate 324 mg PO DAILY 10/30/19 [History] Folic Acid 1 mg PO DAILY 10/30/19 [History] Gabapentin [Neurontin] 100 mg PO DAILY 10/30/19 [History] Gabapentin [Neurontin] 200 mg PO BEDTIME 10/30/19 [History] Krill Oil 500 mg PO BID 10/30/19 [History] Losartan [Cozaar] 50 mg PO BEDTIME 10/30/19 [History] Magnesium Chloride [Mag Delay] 64 mg PO BID 10/30/19 [History] Menthol [Biofreeze] 1 applic TOP BID PRN 10/30/19 [History] Miconazole Nitrate [Zeasorb AF] 1 applic TOP BID 10/30/19 [History] Mirtazapine 7.5 mg PO BEDTIME 10/30/19 [History] Oxybutynin Chloride [Oxybutynin Chloride ER] 2.5 mg PO TID PRN 10/30/19 [H istory] Sennosides/Docusate Sodium [Senna-S 8.6-50 mg Tablet] 1 tab PO BID 10/30/19 [History] Warfarin Sodium [Coumadin] 2.5 mg PO MOFR 10/30/19 [History] atorvaSTATin Calcium [Lipitor] 40 mg PO DAILY 10/30/19 [History] hydroCHLOROthiazide [Hydrochlorothiazide] 12.5 mg PO MOFR 10/30/19 [History] timoloL maleate [Timoptic 0.25% Ophth Soln] 1 drop EYELF DAILY 10/30/19 [History] traMADol HCl [Tramadol HCl] 50 mg PO TID PRN 10/30/19 [History] Calcium Carbonate [Tums] 750 mg PO BID PRN 11/01/19 [History] Menthol/Zinc Oxide [Calmoseptine] 1 applic TOP BID PRN 11/01/19 [History] Miconazole Nitrate [Zeasorb AF] 1 applic TOP BID PRN 11/01/19 [History] lidocaine HCL [Lidocaine HCl] 1 applic TOP BID PRN 11/01/19 [History] levoFLOXacin [Levaquin] 500 mg PO Q24H #5 tablet 11/02/19 [Rx] Past Medical History HEENT History: Reports: Impaired Vision Cardiovascular History: Reports: Afib (On chronic anticoagulation with Coumadin), High Cholesterol, Hypertension Gastrointestinal History: Reports: None Genitourinary History: Reports: Chronic Renal Insuffiency, Other (See Below) Other Genitourinary History: urinary retention, 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: Musculoskeletal History: Reports: Arthritis Neurological History: Reports: CVA, TIA 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 Psychiatric History: Reports: Anxiety, Depression Endocrine/Metabolic History: Reports: Diabetes, Type II, Obesity/BMI 30+ Hematologic History: Reports: B12 Deficiency, Iron Deficiency - Infectious Disease History Infectious Disease History: Reports: Chicken Pox - Past Surgical History HEENT Surgical History: Reports: Tonsillectomy Cardiovascular Surgical History: Reports: Pacer Female Surgical History: Reports: Hysterectomy Musculoskeletal Surgical History: Reports: Arthroscopic Knee, Knee Replacement Other Musculoskeletal Surgeries/Procedures:: ankle hardware Social & Family History - Family History Family Medical History: Unobtainable - Caffeine Use Caffeine Use: Reports: Coffee - Living Situation & Occupation Living situation: Reports: , Extended Care Facility (She is a resident of [facility] for the past 2 years.) Occupation: Retired ED ROS GENERAL - Review of Systems Review Of Systems: Comprehensive ROS is negative, except as noted in HPI. ED EXAM, GENERAL - Physical Exam Exam: See Below Exam Limited By: No Limitations General Appearance: Alert, WD/WN, No Apparent Distress Throat/Mouth: No Airway Compromise Head: Atraumatic, Normocephalic Neck: Full Range of Motion Respiratory/Chest: No Respiratory Distress, No Accessory Muscle Use, Rales, Wheezing Cardiovascular: Regular Rate, Rhythm, No Murmur GI/Abdominal: Normal Bowel Sounds, Soft, Non-Tender, No Distention Back Exam: Other (bandage in place) Extremities: Normal Range of Motion, Pedal Edema Neurological: Alert, No Motor/Sensory Deficits Psychiatric: Normal Affect, Normal Mood Skin Exam: Warm, Dry, Intact #1 Interpretation EKG Date: 06/25/20 Time: 07:24 Rhythm: Other (Atrial paced complexes) Rate (Beats/Min): 61 Course - Vital Signs Last Recorded V/S: Last Vital Signs Temp 37.1 C 06/25/20 07:20 Pulse 66 06/25/20 07:20 Resp 26 H 06/25/20 07:20 BP 166/85 H 06/25/20 07:20 Pulse Ox 100 06/25/20 07:20 - Orders/Labs/Meds Orders: Active Orders 24 hr Category Date Time Status Admission Status [Patient Status] [ADT] Routine ADT 06/25/20 09:30 Ordered EKG Documentation Completion [RC] ASDIRECTED Care 06/25/20 07:33 Active RT Aerosol Therapy [RC] ASDIRECTED Care 06/25/20 07:36 Active CXR [Chest 1V Frontal] [CR] Stat Exams 06/25/20 07:35 Taken CULTURE URINE [RM] Stat Lab 06/25/20 09:19 Ordered EKG 12 Lead [EK] Stat Ther 06/25/20 07:33 Ordered Labs: Laboratory Tests 06/25/20 06/25/20 06/25/20 Range/Units 07:45 07:45 07:45 WBC 7.9 (3.0-10.3) x10-3/uL RBC 3.98 (3.60-5.20) x10(6)uL Hgb 12.9 (11.4-15.5) g/dL Hct 38.8 (34.2-48.2) % MCV 97.5 (76.7-100.5) fL MCH 32.4 (23.9-33.9) pg MCHC 33.3 (31.9-34.8) g/dL RDW 16.7 H (12.3-16.5) % Plt Count 322 (151-488) x10(3)uL MPV 9.3 (7.1-12.4) fL Add Manual Diff Yes Neutrophils % (Manual) 64 (46-82) % Band Neutrophils % 1 (0-6) % Lymphocytes % (Manual) 25 (13-37) % Monocytes % (Manual) 5 (4-12) % Eosinophils % (Manual) 5 (0-5) % PT 36.5 H* (9.0-11.1) sec INR 3.68 H (1.00-1.24) APTT 41.3 H (24.4-33.2) SECONDS D-Dimer, Quantitative (0.0-0.59) mg/LFEU POC VBG pH (7.32-7.43) pH Units POC VBG pCO2 (41-51) mmHg POC VBG HCO3 (21-29) mmol/L VBG Base Excess (-2-3) mmol/L O2 Delivery Device Sodium 138 (135-145) mmol/L Potassium 4.2 (3.5-5.3) mmol/L Chloride 98 L D (100-110) mmol/L Carbon Dioxide 28 (21-32) mmol/L BUN 41 H D (7-18) mg/dL Creatinine 1.7 H (0.55-1.02) mg/dL Est Cr Clr Drug Dosing TNP Estimated GFR (MDRD) 29 L (>60) BUN/Creatinine Ratio 24.1 H (9-20) Glucose 172 H (80-116) mg/dL Calcium 9.2 (8.6-10.2) mg/dL Total Bilirubin 0.4 (0.1-1.3) mg/dL AST 36 H D (5-25) IU/L ALT 21 D (12-36) U/L Alkaline Phosphatase 84 (56-112) IU/L Troponin I (4.0-60.3) pg/mL NT-Pro-B Natriuret Pep (<=450) pg/mL Total Protein 7.6 (6.0-8.0) g/dL Albumin 2.7 L (3.2-4.6) g/dL Globulin 4.9 g/dL Albumin/Globulin Ratio 0.6 Urine Color (YELLOW) Urine Appearance (CLEAR) Urine pH (5.0-6.5) Ur Specific [place] (1.010-1.025) Urine Protein (NEGATIVE) mg/dL Urine Glucose (UA) (NORMAL) mg/dL Urine Ketones (NEGATIVE) mg/dL Urine Occult Blood (NEGATIVE) Urine Nitrite (NEGATIVE) Urine Bilirubin (NEGATIVE) Urine Urobilinogen (NEGATIVE) mg/dL Ur Leukocyte Esterase (NEGATIVE) Urine WBC (0-5) Ur Squamous Epith Cells (NS,R,O) Urine Bacteria (NS) SARS-CoV-2 RNA (SANJANA) (NEGATIVE) 06/25/20 06/25/20 06/25/20 Range/Units 07:45 07:45 07:45 WBC (3.0-10.3) x10-3/uL RBC (3.60-5.20) x10(6)uL Hgb (11.4-15.5) g/dL Hct (34.2-48.2) % MCV (76.7-100.5) fL MCH (23.9-33.9) pg MCHC (31.9-34.8) g/dL RDW (12.3-16.5) % Plt Count (151-488) x10(3)uL MPV (7.1-12.4) fL Add Manual Diff Neutrophils % (Manual) (46-82) % Band Neutrophils % (0-6) % Lymphocytes % (Manual) (13-37) % Monocytes % (Manual) (4-12) % Eosinophils % (Manual) (0-5) % PT (9.0-11.1) sec INR (1.00-1.24) APTT (24.4-33.2) SECONDS D-Dimer, Quantitative 0.35 (0.0-0.59) mg/LFEU POC VBG pH (7.32-7.43) pH Units POC VBG pCO2 (41-51) mmHg POC VBG HCO3 (21-29) mmol/L VBG Base Excess (-2-3) mmol/L O2 Delivery Device Sodium (135-145) mmol/L Potassium (3.5-5.3) mmol/L Chloride (100-110) mmol/L Carbon Dioxide (21-32) mmol/L BUN (7-18) mg/dL Creatinine (0.55-1.02) mg/dL Est Cr Clr Drug Dosing Estimated GFR (MDRD) (>60) BUN/Creatinine Ratio (9-20) Glucose (80-116) mg/dL Calcium (8.6-10.2) mg/dL Total Bilirubin (0.1-1.3) mg/dL AST (5-25) IU/L ALT (12-36) U/L Alkaline Phosphatase (56-112) IU/L Troponin I 11.7 (4.0-60.3) pg/mL NT-Pro-B Natriuret Pep 1208 H* (<=450) pg/mL Total Protein (6.0-8.0) g/dL Albumin (3.2-4.6) g/dL Globulin g/dL Albumin/Globulin Ratio Urine Color (YELLOW) Urine Appearance (CLEAR) Urine pH (5.0-6.5) Ur Specific [place] (1.010-1.025) Urine Protein (NEGATIVE) mg/dL Urine Glucose (UA) (NORMAL) mg/dL Urine Ketones (NEGATIVE) mg/dL Urine Occult Blood (NEGATIVE) Urine Nitrite (NEGATIVE) Urine Bilirubin (NEGATIVE) Urine Urobilinogen (NEGATIVE) mg/dL Ur Leukocyte Esterase (NEGATIVE) Urine WBC (0-5) Ur Squamous Epith Cells (NS,R,O) Urine Bacteria (NS) SARS-CoV-2 RNA (SANJANA) (NEGATIVE) 06/25/20 06/25/20 06/25/20 Range/Units 07:45 08:10 08:25 WBC (3.0-10.3) x10-3/uL RBC (3.60-5.20) x10(6)uL Hgb (11.4-15.5) g/dL Hct (34.2-48.2) % MCV (76.7-100.5) fL MCH (23.9-33.9) pg MCHC (31.9-34.8) g/dL RDW (12.3-16.5) % Plt Count (151-488) x10(3)uL MPV (7.1-12.4) fL Add Manual Diff Neutrophils % (Manual) (46-82) % Band Neutrophils % (0-6) % Lymphocytes % (Manual) (13-37) % Monocytes % (Manual) (4-12) % Eosinophils % (Manual) (0-5) % PT (9.0-11.1) sec INR (1.00-1.24) APTT (24.4-33.2) SECONDS D-Dimer, Quantitative (0.0-0.59) mg/LFEU POC VBG pH 7.42 (7.32-7.43) pH Units POC VBG pCO2 42 (41-51) mmHg POC VBG HCO3 28 (21-29) mmol/L VBG Base Excess 3 (-2-3) mmol/L O2 Delivery Device Nasal cannula Sodium (135-145) mmol/L Potassium (3.5-5.3) mmol/L Chloride (100-110) mmol/L Carbon Dioxide (21-32) mmol/L BUN (7-18) mg/dL Creatinine (0.55-1.02) mg/dL Est Cr Clr Drug Dosing Estimated GFR (MDRD) (>60) BUN/Creatinine Ratio (9-20) Glucose (80-116) mg/dL Calcium (8.6-10.2) mg/dL Total Bilirubin (0.1-1.3) mg/dL AST (5-25) IU/L ALT (12-36) U/L Alkaline Phosphatase (56-112) IU/L Troponin I (4.0-60.3) pg/mL NT-Pro-B Natriuret Pep (<=450) pg/mL Total Protein (6.0-8.0) g/dL Albumin (3.2-4.6) g/dL Globulin g/dL Albumin/Globulin Ratio Urine Color Yellow (YELLOW) Urine Appearance Slightly cloudy (CLEAR) Urine pH 5.0 (5.0-6.5) Ur Specific [place] 1.005 L (1.010-1.025) Urine Protein Negative (NEGATIVE) mg/dL Urine Glucose (UA) Normal (NORMAL) mg/dL Urine Ketones Negative (NEGATIVE) mg/dL Urine Occult Blood Negative (NEGATIVE) Urine Nitrite Negative (NEGATIVE) Urine Bilirubin Negative (NEGATIVE) Urine Urobilinogen Normal (NEGATIVE) mg/dL Ur Leukocyte Esterase Large H (NEGATIVE) Urine WBC 50-75 H (0-5) Ur Squamous Epith Cells Occasional (NS,R,O) Urine Bacteria Moderate H (NS) SARS-CoV-2 RNA (SANJANA) Negative (NEGATIVE) Meds: Medications Discontinued Medications Generic Name Dose Route Start Last Admin Trade Name Freq PRN Reason Stop Dose Admin Albuterol/Ipratropium 3 ml 06/25/20 07:36 06/25/20 07:47 Duoneb 3.0-0.5 Mg/3 Ml NEB 06/25/20 07:37 3 ml ONETIME ONE Administration Furosemide 20 mg 06/25/20 07:37 Lasix IVPUSH 06/25/20 07:38 ONETIME ONE Furosemide 40 mg 06/25/20 07:40 06/25/20 07:49 Lasix IVPUSH 06/25/20 07:41 40 mg NOW ONE Administration - Radiology Interpretation Free Text/Narrative:: CXR: Interstitial edema, CHF. (ED provider interpretation) - Re-Assessments/Exams Free Text/Narrative Re-Assessment/Exam: 06/25/20 09:32 Symptoms improved. Still has expiratory wheezes. Resting comfortably. Sa02 89- 90% RA, 96% on 1L 02 NC. Departure - Departure Time of Disposition: 09:34 Disposition: Refer to Observation Condition: Fair Clinical Impression: Hypoxemia Acute exacerbation of CHF (congestive heart failure) Qualifiers: Heart failure type: unspecified Qualified Code(s): I50.9 - Heart failure, unspecified UTI (urinary tract infection) Qualifiers: Urinary tract infection type: site unspecified Hematuria presence: without hematuria Qualified Code(s): N39.0 - Urinary tract infection, site not specified - Discharge Information *PRESCRIPTION DRUG MONITORING PROGRAM REVIEWED*: No *COPY OF PRESCRIPTION DRUG MONITORING REPORT IN PATIENT BRYAN: Not Applicable Referrals: Holden Patrick MD [Primary Care Provider] - Forms: ED Department Discharge Sepsis Event Note (ED) - Focused Exam Vital Signs: Vital Signs Temp Pulse Resp BP Pulse Ox 06/25/20 07:20 37.1 C 66 26 H 166/85 H 100 - My Orders Last 24 Hours: My Active Orders 06/25/20 07:33 EKG Documentation Completion [RC] ASDIRECTED EKG 12 Lead [EK] Stat 06/25/20 07:35 CXR [Chest 1V Frontal] [CR] Stat 06/25/20 07:36 RT Aerosol Therapy [RC] ASDIRECTED 06/25/20 09:19 CULTURE URINE [RM] Stat 06/25/20 09:30 Admission Status [Patient Status] [ADT] Routine - Assessment/Plan Last 24 Hours: My Active Orders 06/25/20 07:33 EKG Documentation Completion [RC] ASDIRECTED EKG 12 Lead [EK] Stat 06/25/20 07:35 CXR [Chest 1V Frontal] [CR] Stat 06/25/20 07:36 RT Aerosol Therapy [RC] ASDIRECTED 06/25/20 09:19 CULTURE URINE [RM] Stat 06/25/20 09:30 Admission Status [Patient Status] [ADT] Routine
[2020-06-25] MEDS: Sodium Chloride 0.9% 10 ML Syringe FLUSH PRN ×2 (07:45→18:52)
[2020-06-25 08:24] LABS: BASE EXCESS VENOUS,POC 3 mmol/L (-2-3); HCO3 VENOUS,POC 28 mmol/L (21-29); PCO2 VENOUS,POC 42 mmHg (41-51); PH VENOUS,POC 7.42 pH Units (7.32-7.43)
[2020-06-25] MEDS ORDERED: LIDOCAINE HCL TOP PRN (11:24)
[2020-06-25] MEDS ORDERED: Acetaminophen 325 MG Tab PO PRN (11:24)
[2020-06-25] MEDS ORDERED: Bisacodyl 10 MG Supp RECTAL PRN (11:24)
[2020-06-25] MEDS ORDERED: traMADol 50 MG Tab PO PRN (11:24)
[2020-06-25] MEDS ORDERED: Menthol/Zinc Oxide Ointment 113 GM Tube TOP PRN (11:24)
--- NOTE | 2020-06-25 11:35 | PCM.HP.2 ---
H&P History of Present Illness - General Date of Service: 06/25/20 Admit Problem/Dx: Admission Diagnosis/Problem Admission Diagnosis/Problem CHF, Congestive heart failure Source of Information: Patient History Limitations: Reports: No Limitations - History of Present Illness Initial Comments - Free Text/Narative: 79 yo female who came with increased shortness of breath since this morning. Has a h/o Afib,HTN,CVA. No chest pain, No fever or chills. - Related Data Allergies/Adverse Reactions: Allergies Allergy/AdvReac Type Severity Reaction Status Date / Time lisinopril Allergy Dizziness Verified 06/25/20 09:50 Home Medications: Home Meds Febuxostat [Uloric] 40 mg PO DAILY 08/10/17 [History] metFORMIN HCl [Metformin ER Osmotic] 500 mg PO BEDTIME 08/10/17 [History] Aspirin [Halfprin] 81 mg PO BEDTIME 08/29/17 [History] Metoprolol Succinate [Toprol Xl] 150 mg PO DAILY 08/29/17 [History] Acetaminophen [Acetaminophen Extra Strength] 1,000 mg PO BID 10/30/19 [History] Cholecalciferol (Vitamin D3) [Vitamin D3] 1,000 unit PO DAILY 10/30/19 [History] Ferrous Sulfate 324 mg PO Q48H 10/30/19 [History] Folic Acid 1 mg PO DAILY 10/30/19 [History] Gabapentin [Neurontin] 100 mg PO DAILY 10/30/19 [History] Gabapentin [Neurontin] 200 mg PO BEDTIME 10/30/19 [History] Losartan [Cozaar] 50 mg PO BEDTIME 10/30/19 [History] Magnesium Chloride [Mag Delay] 64 mg PO BID 10/30/19 [History] Mirtazapine 7.5 mg PO BEDTIME 10/30/19 [History] Sennosides/Docusate Sodium [Senna-S 8.6-50 mg Tablet] 1 tab PO DAILY 10/30/19 [History] timoloL maleate [Timoptic 0.25% Ophth Soln] 1 drop EYELF DAILY 10/30/19 [Hist ory] traMADol HCl [Tramadol HCl] 50 mg PO TID PRN 10/30/19 [History] Menthol/Zinc Oxide [Calmoseptine] 1 applic TOP BID PRN 11/01/19 [History] lidocaine HCL [Lidocaine HCl] 1 applic TOP BID PRN 11/01/19 [History] Acetaminophen [Mapap] 650 mg PO Q4HR PRN 06/25/20 [History] Clindamycin HCl 150 mg PO TID 06/25/20 [History] Escitalopram Oxalate 10 mg PO BEDTIME 06/25/20 [History] Famotidine [Pepcid] 20 mg PO BID 06/25/20 [History] Furosemide 20 mg PO DAILY 06/25/20 [History] Methotrexate 15 mg SQ TU 06/25/20 [History] Potassium Chloride 10 meq PO BEDTIME 06/25/20 [History] Rosuvastatin [Crestor] 20 mg PO BEDTIME 06/25/20 [History] Warfarin Sodium [Jantoven] 4 mg PO DAILY 06/25/20 [History] bisacodyL [Dulcolax] 10 mg RECTAL Q72H PRN 06/25/20 [History] Past Medical History HEENT History: Reports: Impaired Vision Cardiovascular History: Reports: Afib (On chronic anticoagulation with Coumadin), High Cholesterol, Hypertension Gastrointestinal History: Reports: None Genitourinary History: Reports: Chronic Renal Insuffiency, Other (See Below) Other Genitourinary History: urinary retention, has mackay 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: Musculoskeletal History: Reports: Arthritis Neurological History: Reports: CVA, TIA 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 Psychiatric History: Reports: Anxiety, Depression Endocrine/Metabolic History: Reports: Diabetes, Type II, Obesity/BMI 30+ Hematologic History: Reports: B12 Deficiency, Iron Deficiency - Infectious Disease History Infectious Disease History: Reports: Chicken Pox - Past Surgical History HEENT Surgical History: Reports: Tonsillectomy Cardiovascular Surgical History: Reports: Pacer Female Surgical History: Reports: Hysterectomy Musculoskeletal Surgical History: Reports: Arthroscopic Knee, Knee Replacement Other Musculoskeletal Surgeries/Procedures:: ankle hardware Social & Family History - Family History Family Medical History: Unobtainable - Caffeine Use Caffeine Use: Reports: Coffee - Living Situation & Occupation Living situation: Reports: , Extended Care Facility (She is a resident of [facility] for the past 2 years.) Occupation: Retired H&P Review of Systems - Review of Systems: Review Of Systems: Comprehensive ROS is negative, except as noted in HPI. Exam - Exam Exam: See Below - Vital Signs Vital Signs: Last Vital Signs Temp 98.8 F 06/25/20 07:20 Pulse 66 06/25/20 07:20 Resp 26 H 06/25/20 07:20 BP 166/85 H 06/25/20 07:20 Pulse Ox 100 06/25/20 07:20 Weight: 108.409 kg - Exam Quality Assessment: Supplemental Oxygen General: Alert, Oriented HEENT: PERRLA Neck: Supple Lungs: Crackles, Rales GI/Abdominal Exam: Normal Bowel Sounds, Soft Back Exam: Normal Inspection Extremities: No Pedal Edema Skin: Warm Neurological: Cranial Nerves Intact Neuro Extensive - Mental Status: Alert, Oriented x3 Neuro Extensive - Motor, Sensory, Reflexes: Hemeplagia (L) Psychiatric: Alert - Patient Data Lab Results Last 24 hrs: Laboratory Results - last 24 hr 06/25/20 06/25/20 06/25/20 Range/Units 07:45 07:45 07:45 WBC 7.9 (3.0-10.3) x10-3/uL RBC 3.98 (3.60-5.20) x10(6)uL Hgb 12.9 (11.4-15.5) g/dL Hct 38.8 (34.2-48.2) % MCV 97.5 (76.7-100.5) fL MCH 32.4 (23.9-33.9) pg MCHC 33.3 (31.9-34.8) g/dL RDW 16.7 H (12.3-16.5) % Plt Count 322 (151-488) x10(3)uL MPV 9.3 (7.1-12.4) fL Add Manual Diff Yes Neutrophils % (Manual) 64 (46-82) % Band Neutrophils % 1 (0-6) % Lymphocytes % (Manual) 25 (13-37) % Monocytes % (Manual) 5 (4-12) % Eosinophils % (Manual) 5 (0-5) % PT 36.5 H* (9.0-11.1) sec INR 3.68 H (1.00-1.24) APTT 41.3 H (24.4-33.2) SECONDS D-Dimer, Quantitative (0.0-0.59) mg/LFEU POC VBG pH (7.32-7.43) pH Units POC VBG pCO2 (41-51) mmHg POC VBG HCO3 (21-29) mmol/L VBG Base Excess (-2-3) mmol/L O2 Delivery Device Sodium 138 (135-145) mmol/L Potassium 4.2 (3.5-5.3) mmol/L Chloride 98 L D (100-110) mmol/L Carbon Dioxide 28 (21-32) mmol/L BUN 41 H D (7-18) mg/dL Creatinine 1.7 H (0.55-1.02) mg/dL Est Cr Clr Drug Dosing TNP Estimated GFR (MDRD) 29 L (>60) BUN/Creatinine Ratio 24.1 H (9-20) Glucose 172 H (80-116) mg/dL Calcium 9.2 (8.6-10.2) mg/dL Total Bilirubin 0.4 (0.1-1.3) mg/dL AST 36 H D (5-25) IU/L ALT 21 D (12-36) U/L Alkaline Phosphatase 84 (56-112) IU/L Troponin I (4.0-60.3) pg/mL NT-Pro-B Natriuret Pep (<=450) pg/mL Total Protein 7.6 (6.0-8.0) g/dL Albumin 2.7 L (3.2-4.6) g/dL Globulin 4.9 g/dL Albumin/Globulin Ratio 0.6 Urine Color (YELLOW) Urine Appearance (CLEAR) Urine pH (5.0-6.5) Ur Specific [place] (1.010-1.025) Urine Protein (NEGATIVE) mg/dL Urine Glucose (UA) (NORMAL) mg/dL Urine Ketones (NEGATIVE) mg/dL Urine Occult Blood (NEGATIVE) Urine Nitrite (NEGATIVE) Urine Bilirubin (NEGATIVE) Urine Urobilinogen (NEGATIVE) mg/dL Ur Leukocyte Esterase (NEGATIVE) Urine WBC (0-5) Ur Squamous Epith Cells (NS,R,O) Urine Bacteria (NS) SARS-CoV-2 RNA (SANJANA) (NEGATIVE) 06/25/20 06/25/20 06/25/20 Range/Units 07:45 07:45 07:45 WBC (3.0-10.3) x10-3/uL RBC (3.60-5.20) x10(6)uL Hgb (11.4-15.5) g/dL Hct (34.2-48.2) % MCV (76.7-100.5) fL MCH (23.9-33.9) pg MCHC (31.9-34.8) g/dL RDW (12.3-16.5) % Plt Count (151-488) x10(3)uL MPV (7.1-12.4) fL Add Manual Diff Neutrophils % (Manual) (46-82) % Band Neutrophils % (0-6) % Lymphocytes % (Manual) (13-37) % Monocytes % (Manual) (4-12) % Eosinophils % (Manual) (0-5) % PT (9.0-11.1) sec INR (1.00-1.24) APTT (24.4-33.2) SECONDS D-Dimer, Quantitative 0.35 (0.0-0.59) mg/LFEU POC VBG pH (7.32-7.43) pH Units POC VBG pCO2 (41-51) mmHg POC VBG HCO3 (21-29) mmol/L VBG Base Excess (-2-3) mmol/L O2 Delivery Device Sodium (135-145) mmol/L Potassium (3.5-5.3) mmol/L Chloride (100-110) mmol/L Carbon Dioxide (21-32) mmol/L BUN (7-18) mg/dL Creatinine (0.55-1.02) mg/dL Est Cr Clr Drug Dosing Estimated GFR (MDRD) (>60) BUN/Creatinine Ratio (9-20) Glucose (80-116) mg/dL Calcium (8.6-10.2) mg/dL Total Bilirubin (0.1-1.3) mg/dL AST (5-25) IU/L ALT (12-36) U/L Alkaline Phosphatase (56-112) IU/L Troponin I 11.7 (4.0-60.3) pg/mL NT-Pro-B Natriuret Pep 1208 H* (<=450) pg/mL Total Protein (6.0-8.0) g/dL Albumin (3.2-4.6) g/dL Globulin g/dL Albumin/Globulin Ratio Urine Color (YELLOW) Urine Appearance (CLEAR) Urine pH (5.0-6.5) Ur Specific [place] (1.010-1.025) Urine Protein (NEGATIVE) mg/dL Urine Glucose (UA) (NORMAL) mg/dL Urine Ketones (NEGATIVE) mg/dL Urine Occult Blood (NEGATIVE) Urine Nitrite (NEGATIVE) Urine Bilirubin (NEGATIVE) Urine Urobilinogen (NEGATIVE) mg/dL Ur Leukocyte Esterase (NEGATIVE) Urine WBC (0-5) Ur Squamous Epith Cells (NS,R,O) Urine Bacteria (NS) SARS-CoV-2 RNA (SANJANA) (NEGATIVE) 06/25/20 06/25/20 06/25/20 Range/Units 07:45 08:10 08:25 WBC (3.0-10.3) x10-3/uL RBC (3.60-5.20) x10(6)uL Hgb (11.4-15.5) g/dL Hct (34.2-48.2) % MCV (76.7-100.5) fL MCH (23.9-33.9) pg MCHC (31.9-34.8) g/dL RDW (12.3-16.5) % Plt Count (151-488) x10(3)uL MPV (7.1-12.4) fL Add Manual Diff Neutrophils % (Manual) (46-82) % Band Neutrophils % (0-6) % Lymphocytes % (Manual) (13-37) % Monocytes % (Manual) (4-12) % Eosinophils % (Manual) (0-5) % PT (9.0-11.1) sec INR (1.00-1.24) APTT (24.4-33.2) SECONDS D-Dimer, Quantitative (0.0-0.59) mg/LFEU POC VBG pH 7.42 (7.32-7.43) pH Units POC VBG pCO2 42 (41-51) mmHg POC VBG HCO3 28 (21-29) mmol/L VBG Base Excess 3 (-2-3) mmol/L O2 Delivery Device Nasal cannula Sodium (135-145) mmol/L Potassium (3.5-5.3) mmol/L Chloride (100-110) mmol/L Carbon Dioxide (21-32) mmol/L BUN (7-18) mg/dL Creatinine (0.55-1.02) mg/dL Est Cr Clr Drug Dosing Estimated GFR (MDRD) (>60) BUN/Creatinine Ratio (9-20) Glucose (80-116) mg/dL Calcium (8.6-10.2) mg/dL Total Bilirubin (0.1-1.3) mg/dL AST (5-25) IU/L ALT (12-36) U/L Alkaline Phosphatase (56-112) IU/L Troponin I (4.0-60.3) pg/mL NT-Pro-B Natriuret Pep (<=450) pg/mL Total Protein (6.0-8.0) g/dL Albumin (3.2-4.6) g/dL Globulin g/dL Albumin/Globulin Ratio Urine Color Yellow (YELLOW) Urine Appearance Slightly cloudy (CLEAR) Urine pH 5.0 (5.0-6.5) Ur Specific [place] 1.005 L (1.010-1.025) Urine Protein Negative (NEGATIVE) mg/dL Urine Glucose (UA) Normal (NORMAL) mg/dL Urine Ketones Negative (NEGATIVE) mg/dL Urine Occult Blood Negative (NEGATIVE) Urine Nitrite Negative (NEGATIVE) Urine Bilirubin Negative (NEGATIVE) Urine Urobilinogen Normal (NEGATIVE) mg/dL Ur Leukocyte Esterase Large H (NEGATIVE) Urine WBC 50-75 H (0-5) Ur Squamous Epith Cells Occasional (NS,R,O) Urine Bacteria Moderate H (NS) SARS-CoV-2 RNA (SANJANA) Negative (NEGATIVE) Result Diagrams: 06/25/20 07:45 06/25/20 07:45 Sepsis Event Note - Evaluation Sepsis Screening Result: Possible Sepsis Risk - Focused Exam Vital Signs: Vital Signs Temp Pulse Resp BP Pulse Ox 06/25/20 07:20 98.8 F 66 26 H 166/85 H 100 - Problem List (1) Acute exacerbation of CHF (congestive heart failure) SNOMED Code(s): 071874670, 25218144541236 ICD Code: I50.9 - HEART FAILURE, UNSPECIFIED Status: Acute Current Visit: Yes Qualifiers: Heart failure type: unspecified Qualified Code(s): I50.9 - Heart failure, unspecified (2) Afib SNOMED Code(s): 07102116 ICD Code: I48.91 - UNSPECIFIED ATRIAL FIBRILLATION Status: Acute Current Visit: Yes (3) CKD (chronic kidney disease) SNOMED Code(s): 205308421 ICD Code: N18.9 - CHRONIC KIDNEY DISEASE, UNSPECIFIED Status: Acute Current Visit: Yes Qualifiers: Chronic kidney disease stage: stage 2 (mild) Qualified Code(s): N18.2 - Chronic kidney disease, stage 2 (mild) (4) MDD (major depressive disorder) SNOMED Code(s): 363296305 ICD Code: F32.9 - MAJOR DEPRESSIVE DISORDER, SINGLE EPISODE, UNSPECIFIED Status: Acute Current Visit: Yes Qualifiers: Major depression recurrence: recurrent Active/Remission status: currently active (5) Anticoagulant long-term use SNOMED Code(s): 532574265 ICD Code: Z79.01 - RETIREMENT (CURRENT) USE OF ANTICOAGULANTS Status: Acute Current Visit: Yes (6) Hemiplegia affecting right nondominant side SNOMED Code(s): 072436586325193 ICD Code: G81.93 - HEMIPLEGIA, UNSPECIFIED AFFECTING RIGHT NONDOMINANT SIDE Status: Acute Current Visit: Yes Problem List Initiated/Reviewed/Updated: Yes Orders Last 24hrs: Active Orders 24 hr Category Date Time Status Admission Status [Patient Status] [ADT] Routine ADT 06/25/20 09:30 Active EKG Documentation Completion [RC] ASDIRECTED Care 06/25/20 07:33 Active RT Aerosol Therapy [RC] ASDIRECTED Care 06/25/20 07:36 Active Vital Signs [RC] Q8H Care 06/25/20 11:23 Active Weight, Daily [Height and Weight] [RC] DAILY Care 06/25/20 11:23 Active Regular Diet [DIET] Diet 06/25/20 Dinner Active CXR [Chest 1V Frontal] [CR] Stat Exams 06/25/20 07:35 Taken BASIC METABOLIC PANEL,BMP [CHEM] AM Lab 06/26/20 05:11 Ordered CBC WITH AUTO DIFF [HEME] AM Lab 06/26/20 05:11 Ordered CULTURE URINE [RM] Stat Lab 06/25/20 08:10 Received INR,PT,PROTHROMBIN TIME [COAG] Routine Lab 06/25/20 11:25 Ordered PRO B-TYPE NATRIUR PEPT,BNPPRO [CHEM] Routine Lab 06/26/20 05:11 Ordered Acetaminophen [TylenoL] Med 06/25/20 11:24 Ordered 650 mg PO Q4HR PRN Acetaminophen [Tylenol Extra Strength] Med 06/25/20 21:00 Ordered 1,000 mg PO BID Aspirin [Halfprin] Med 06/25/20 21:00 Ordered 81 mg PO BEDTIME Cholecalciferol (Vitamin D3) [Vitamin D3] Med 06/26/20 09:00 Ordered 1,000 unit PO DAILY Docusate Sodium/Sennosides [Senna Plus] Med 06/26/20 09:00 Ordered 1 tab PO DAILY Escitalopram [Lexapro] Med 06/25/20 21:00 Ordered 10 mg PO BEDTIME Famotidine [Pepcid] Med 06/25/20 21:00 Ordered 20 mg PO BID Febuxostat [Uloric] Med 06/26/20 09:00 Ordered 40 mg PO DAILY Ferrous Sulfate [Ferrous Sulfate] Med 06/25/20 11:30 Ordered 324 mg PO Q48H Folic Acid Med 06/26/20 09:00 Ordered 1 mg PO DAILY Furosemide [Lasix] Med 06/25/20 18:00 Once 20 mg IVPUSH ONETIME ONE Furosemide [Lasix] Med 06/26/20 09:00 Ordered 20 mg PO DAILY Gabapentin [Neurontin] Med 06/26/20 09:00 Ordered 100 mg PO DAILY Gabapentin [Neurontin] Med 06/25/20 21:00 Ordered 200 mg PO BEDTIME Losartan [Cozaar] Med 06/25/20 21:00 Ordered 50 mg PO BEDTIME Magnesium Chloride [Mag-64] Med 06/25/20 21:00 Ordered 64 mg PO BID Menthol/Zinc Oxide [Calmoseptine] Med 06/25/20 11:24 Ordered 1 applic TOP BID PRN Methotrexate [Methotrexate] Med 06/27/20 11:24 Ordered 15 mg SQ TU Metoprolol Succinate [Toprol XL] Med 06/26/20 09:00 Ordered 150 mg PO DAILY Mirtazapine [Mirtazapine] Med 06/25/20 21:00 Ordered 7.5 mg PO BEDTIME Potassium Chloride [Potassium Chloride] Med 06/25/20 21:00 Ordered 10 meq PO BEDTIME Rosuvastatin [Crestor] Med 06/25/20 21:00 Ordered 20 mg PO BEDTIME Warfarin [Coumadin] Med 06/26/20 09:00 Ordered 4 mg PO DAILY bisacodyL [Dulcolax] Med 06/25/20 11:24 Ordered 10 mg RECTAL Q72H PRN clindamycin HCL [Cleocin] Med 06/25/20 14:00 Ordered 150 mg PO TID lidocaine HCL [Lidocaine HCl] Med 06/25/20 11:24 Ordered 1 applic TOP BID PRN metFORMIN HCl [Metformin ER Osmotic] Med 06/25/20 21:00 Ordered 500 mg PO BEDTIME timoloL maleate [Timoptic 0.25% Ophth Soln] Med 06/26/20 09:00 Ordered 1 drop EYELF DAILY traMADol [Ultram] Med 06/25/20 11:24 Ordered 50 mg PO TID PRN Code Status [Resuscitation Status] Routine Resus Stat 06/25/20 09:39 Ordered EKG 12 Lead [EK] Stat Ther 06/25/20 07:33 Ordered Medication Orders Acetaminophen (Tylenol Extra Strength) 1,000 mg PO BID MCKENZIE Acetaminophen (Tylenol) 650 mg PO Q4HR PRN PRN Reason: Pain Aspirin (Halfprin) 81 mg PO BEDTIME MCKENZIE Bisacodyl (Dulcolax) 10 mg RECTAL Q72H PRN PRN Reason: Constipation Calamine/Phenol (Calmoseptine) gm TOP BID PRN PRN Reason: SKIN PROTECTANT Clindamycin HCl (Cleocin) 150 mg PO TID MCKENZIE Escitalopram Oxalate (Lexapro) 10 mg PO BEDTIME MCKENZIE Famotidine (Pepcid) 20 mg PO BID MCKENZIE Febuxostat (Uloric) 40 mg PO DAILY MCKENZIE Folic Acid (Folic Acid) 1 mg PO DAILY MCKENZIE Furosemide (Lasix) 20 mg PO DAILY MCKENZIE Gabapentin (Neurontin) 100 mg PO DAILY MCKENZIE Gabapentin (Neurontin) 200 mg PO BEDTIME MCKENZIE Losartan Potassium (Cozaar) 50 mg PO BEDTIME MCKENZIE Magnesium Chloride (Mag-64) 64 mg PO BID MCKENZIE Metoprolol Succinate (Toprol Xl) 150 mg PO DAILY MCKENZIE Non-Formulary Medication (Cholecalciferol (Vitamin D3) [Vitamin D3]) 1,000 unit PO DAILY MCKENZIE Non-Formulary Medication (Ferrous Sulfate [Ferrous Sulfate]) 324 mg PO Q48H MCKENZIE Non-Formulary Medication (Lidocaine Hcl [Lidocaine Hcl]) 1 applic TOP BID PRN PRN Reason: CATH SITE BURNING Non-Formulary Medication (Metformin Hcl [Metformin Er Osmotic]) 500 mg PO BEDTIME MCKENZIE Non-Formulary Medication (Methotrexate [Methotrexate]) 15 mg SQ TU MCKENZIE Non-Formulary Medication (Mirtazapine [Mirtazapine]) 7.5 mg PO BEDTIME MCKENZIE Non-Formulary Medication (Potassium Chloride [Potassium Chloride]) 10 meq PO BEDTIME MCKENZIE Rosuvastatin Calcium (Crestor) 20 mg PO BEDTIME MCKENZIE Senna/Docusate Sodium (Senna Plus) 1 tab PO DAILY MCKENZIE Timolol Maleate (Timoptic 0.25% Ophth Soln) ml EYELF DAILY MCKEZNIE Tramadol HCl (Ultram) 50 mg PO TID PRN PRN Reason: Pain Warfarin Sodium (Coumadin) 4 mg PO DAILY MCKENZIE Assessment/Plan Comment:: Lasix 20 mg IV tonight. Repeat labs in AM. Possible DC in AM.
[2020-06-25] MEDS ORDERED: Clindamycin HCl 150 MG Cap PO SCH (14:00)
[2020-06-25] MEDS: CLINDAMYCIN HCL 150 MG PO SCH ×2 (14:50→20:30)
[2020-06-25] MEDS: ACETAMINOPHEN 500 MG PO SCH (20:41)
[2020-06-25] MEDS ORDERED: Mirtazapine 15 MG Tab**OWN MED PO SCH (21:00)
[2020-06-25] MEDS ORDERED: Potassium Chloride 10 MEQ Tab.ER**OWN MED PO SCH (21:00)
[2020-06-25] MEDS ORDERED: Aspirin 81 MG Tab.EC**OWN MED PO SCH (21:00)
[2020-06-25] MEDS ORDERED: metFORMIN 500 MG Tab.ER**OWN MED PO SCH (21:00)
[2020-06-25] MEDS ORDERED: ESCITALOPRAM 10 MG PO SCH (21:00)
[2020-06-25] MEDS ORDERED: Famotidine 20 MG Tab**OWN MED PO SCH (21:00)
[2020-06-25] MEDS ORDERED: Aspirin 81 MG Tab.EC PO SCH (21:00)
[2020-06-25] MEDS ORDERED: Acetaminophen 500 MG Tab PO SCH (21:00)
[2020-06-25] MEDS ORDERED: Gabapentin 100 MG Cap PO SCH (21:00)
[2020-06-25] MEDS ORDERED: MAGNESIUM CHLORIDE 64 MG PO SCH (21:00)
[2020-06-25] MEDS ORDERED: Escitalopram 10 MG Tab PO SCH (21:00)
[2020-06-25] MEDS ORDERED: ROSUVASTATIN 20 MG PO SCH (21:00)
[2020-06-26] MEDS ORDERED: Timolol Maleate 0.5% Ophth Soln 5 ML Bottle**OWN MED EYELF SCH (09:00)
[2020-06-26] MEDS ORDERED: FEBUXOSTAT 40 MG PO SCH (09:00)
[2020-06-26] MEDS ORDERED: FAMOTIDINE 40 MG PO SCH (09:00)
[2020-06-26] MEDS ORDERED: Docusate Sodium/Sennosides 50-8.6 MG Tab *PTOM PO SCH (09:00)
[2020-06-26] MEDS ORDERED: Gabapentin 100 MG Cap PO SCH (09:00)
[2020-06-26] MEDS ORDERED: Folic Acid 1 MG Tab**OWN MED PO SCH (09:00)
[2020-06-26] MEDS ORDERED: CHOLECALCIFEROL 25 MCG PO SCH (09:00)
[2020-06-26] MEDS ORDERED: Furosemide 40 MG Tab**OWN MED PO SCH (09:00)
[2020-06-26] MEDS ORDERED: Metoprolol Succinate 100 MG Tab.ER**OWN MED PO SCH (09:00)
[2020-06-26] MEDS ORDERED: MAGNESIUM CHLORIDE 64 MG PO SCH (09:00)
[2020-06-26] MEDS: CLINDAMYCIN HCL 150 MG PO SCH (09:24)
[2020-06-26] MEDS: ACETAMINOPHEN 500 MG PO SCH (09:25)
--- NOTE | 2020-06-26 11:04 | CR ---
INDICATION: Short of breath. CHEST ONE VIEW: An AP portable upright view of the chest was obtained 06/25/20 and was somewhat limited in that the patient could not hold her breath. The heart appears enlarged, pulmonary vasculature is prominent and indistinct compatible with CHF. Interstitial markings are heavy compatible with interstitial lung edema. Markings are somewhat heavier at the bases making it difficult to exclude areas of patchy bronchopneumonia. Minimal pleural effusions are difficult to exclude also. Bipolar pacemaker leads are again noted, unchanged in position. Overlying EKG leads are noted. The view obtained was somewhat rotated to the left. Findings compatible with exogenous obesity are noted. IMPRESSION: Findings are compatible with CHF, ASHD, cardiomegaly with interstitial lung edema. Difficult to exclude patchy bronchopneumonia at the lung bases. MTDD
[2020-06-26] MEDS ORDERED: Warfarin 4 MG Tab PO SCH (16:00)
[2020-06-26] MEDS ORDERED: ROSUVASTATIN 20 MG PO SCH (18:00)
[2020-06-26] MEDS ORDERED: metFORMIN 500 MG Tab.ER**OWN MED PO SCH (18:00)
[2020-06-26] MEDS ORDERED: Aspirin 81 MG Tab.EC**OWN MED PO SCH (18:00)
[2020-06-26] MEDS ORDERED: Ferrous Sulfate 325 MG Tab**OWN MED PO SCH (18:00)
[2020-06-26] MEDS ORDERED: MIRTAZIPINE PO SCH (21:00)
--- NOTE | 2020-06-26 22:36 | DISCH ---
DISCHARGE DATE: 06/26/2020 REASON FOR ADMISSION: CHF exacerbation. DISCHARGE DIAGNOSES: 1. Congestive heart failure exacerbation. 2. Chronic kidney disease. 3. Atrial fibrillation. 4. Long-term anticoagulation. 5. History of stroke with left-sided hemiparesis. BRIEF HISTORY AND HOSPITAL COURSE: A 79-year-old who was admitted with shortness of breath, mild hypoxemia, and chest x-ray suggestive of CHF exacerbation. She was placed on oxygen, IV Lasix, and improved and ready to go home today. BNP came down to 755 and creatinine down to 1.5. She is off oxygenation and ready to go home today. Discharge medications will be the same as she previously came with, which includes 20 mg of Lasix once a day. I spent more than 35 minutes in the discharge of the patient. /[id number] ELI/NORMA
[2020-06-27] MEDS ORDERED: METHOTREXATE 15 MG SQ SCH (11:24)
== END 2020-06-26 11:05 ==
LOC: FB.ED 07:20 → FB.MS 09:22
PROVIDERS: ADMIT Family Medicine; ATTEND Family Medicine
DX: I13.0 Hypertensive heart and chronic kidney disease with heart failure and stage 1 through stage 4 chronic kidney disease, or unspecified chronic kidney disease (principal); I50.9 Heart failure, unspecified; N18.2 Chronic kidney disease, stage 2 (mild); R09.02 Hypoxemia; I48.91 Unspecified atrial fibrillation; E78.00 Pure hypercholesterolemia, unspecified; E11.22 Type 2 diabetes mellitus with diabetic chronic kidney disease; E66.9 Obesity, unspecified; E53.8 Deficiency of other specified B group vitamins; G81.93 Hemiplegia, unspecified affecting right nondominant side; Z20.822 Contact with and (suspected) exposure to COVID-19; Z86.73 Personal history of transient ischemic attack (TIA), and cerebral infarction without residual deficits; Z79.899 Other long term (current) drug therapy; Z98.890 Other specified postprocedural states; Z79.01 Long term (current) use of anticoagulants
CPT/HCPCS: 36415; 71045; 80048; 80053; 81001; 83880; 84484; 85025; 85379; 85610; 85730; 87086; 87088; 87186; 93005; 94640; 96374; 96376; 99284; 99285; A9270; G0378; J1940; U0002; 99217; 99219; J7620-GY

== ENCOUNTER 2020-11-07 06:41 | Day surgery (SDC) | payer MEDICARE ==
[2020-11-07] MEDS ORDERED: Midazolam 1 MG/ML 2 ML SDV IV ONE (06:42)
[2020-11-07] MEDS ORDERED: Lactated Ringers 1,000 ML IV PRN (06:45)
[2020-11-07] MEDS ORDERED: Sodium Chloride 0.9% 10 ML Syringe FLUSH PRN (06:45)
[2020-11-07] MEDS ORDERED: acetaZOLAMIDE 500 MG Cap.ER PO ONE (08:30)
--- NOTE | 2020-11-07 13:47 | OR ---
DATE OF OPERATION: 11/07/2020 SURGEON: Laureen Luna MD PREOPERATIVE DIAGNOSIS: Visually significant cataract, left eye. POSTOPERATIVE DIAGNOSIS: Visually significant cataract, left eye. PROCEDURES PERFORMED: Phacoemulsification with intraocular lens placement, left eye. ASSISTANTS: None. ANESTHESIA: Local with sedation. COMPLICATIONS: None. BLOOD LOSS: None. IMPLANTS: An Cruz [id number], 13.0 diopter lens, serial number [id number] implanted. CDE: 6.05. DESCRIPTION OF PROCEDURE: After risks and benefits were reviewed with the patient, consent was obtained in the preoperative area, and the operative eye was marked with a surgical pen. In the preoperative area, a pledget was used to dilate the pupil consisting of a mixture of phenylephrine 10%, cyclopentolate 2%, moxifloxacin 0.5%, and bupivacaine 0.75%. The patient was taken to the operating room, where a time-out was performed, and the patient was placed under monitored anesthesia care. Topical tetracaine was used for anesthesia. The operative eye was prepped and draped for ophthalmic surgery, and the microscope was brought into position and focused. A paracentesis incision was made, followed by injection of preservative-free 1% lidocaine into the anterior chamber, followed by injection of Viscoat into the anterior chamber. A microkeratome blade was used to make a corneal limbal incision temporally. A cystotome was used to make the beginning of the capsulorrhexis, which was carried around 360 degrees in a curvilinear fashion using Utrata forceps. A Abbott cannula with BSS was used to hydrodissect and hydrodelineate the nucleus. The nucleus was removed in a divide and conquer manner using phacoemulsification. Irrigation and aspiration were used to remove the remaining cortical material. Provisc was used to inflate the capsular bag, and a pre-loaded Cruz [id number], 13.0 diopter lens, serial number [id number] was injected into the capsular bag. A Sinskey hook was used to position and center the lens. Next, irrigation and aspiration was used to remove any remaining viscoelastic and cortical material from the anterior chamber. BSS on a cannula was used to inflate the anterior chamber and hydrate the wound. The wound was checked and found to be watertight. 1 mg of Moxifloxacin was injected into the anterior chamber. Drapes were removed and the eye was cleaned. A drop of brimonidine 0.2% and a drop of TobraDex was placed. The eye was shielded, and the patient was taken to the recovery room in stable condition. /[id number] RABIA/NORMA
== END 2020-11-07 09:05 ==
LOC: FB.SDS 06:41
PROVIDERS: ATTEND Ophthalmology
DX: E11.36 Type 2 diabetes mellitus with diabetic cataract (principal); H25.811 Combined forms of age-related cataract, right eye; H25.12 Age-related nuclear cataract, left eye; H04.123 Dry eye syndrome of bilateral lacrimal glands; H43.811 Vitreous degeneration, right eye; H40.1122 Primary open-angle glaucoma, left eye, moderate stage; N31.9 Neuromuscular dysfunction of bladder, unspecified; E11.22 Type 2 diabetes mellitus with diabetic chronic kidney disease; N13.0 Hydronephrosis with ureteropelvic junction obstruction; G81.94 Hemiplegia, unspecified affecting left nondominant side; I48.0 Paroxysmal atrial fibrillation; I49.5 Sick sinus syndrome; M05.79 Rheumatoid arthritis with rheumatoid factor of multiple sites without organ or systems involvement; E66.01 Morbid (severe) obesity due to excess calories; Z68.41 Body mass index [BMI] 40.0-44.9, adult; Z79.01 Long term (current) use of anticoagulants; Z79.899 Other long term (current) drug therapy; Z86.73 Personal history of transient ischemic attack (TIA), and cerebral infarction without residual deficits; I12.9 Hypertensive chronic kidney disease with stage 1 through stage 4 chronic kidney disease, or unspecified chronic kidney disease; Z98.890 Other specified postprocedural states; Z90.49 Acquired absence of other specified parts of digestive tract; Z79.82 Long term (current) use of aspirin; Z88.8 Allergy status to other drugs, medicaments and biological substances
CPT/HCPCS: 00142-QZ; 82947; A9270-GY; J2250; J7120; V2632

== ENCOUNTER 2020-12-12 06:57 | Day surgery (SDC) | payer MEDICARE ==
[~2020-12-12 06:57] MED LIST: Lactated Ringers 1,000 ML IV SCH; Sodium Chloride 0.9% 10 ML Syringe FLUSH PRN
[2020-12-12] MEDS ORDERED: Midazolam 1 MG/ML 2 ML SDV IV ONE (06:58)
[2020-12-12] MEDS ORDERED: fentaNYL 100 MCG/2 ML SDV IV ONE (06:58)
[2020-12-12] MEDS ORDERED: acetaZOLAMIDE 500 MG Cap.ER PO ONE (09:00)
--- NOTE | 2020-12-12 11:51 | OR ---
DATE OF OPERATION: 12/12/2020 SURGEON: Laureen Luna MD PREOPERATIVE DIAGNOSIS: Visually significant cataract, right eye. POSTOPERATIVE DIAGNOSIS: Visually significant cataract, right eye. PROCEDURES PERFORMED: Phacoemulsification with intraocular lens placement, right eye. ASSISTANTS: None. ANESTHESIA: Local with sedation. COMPLICATIONS: None. BLOOD LOSS: None. IMPLANTS: Cruz [id number] 12.5 diopter lens implanted. CDE: 10.66. DESCRIPTION OF PROCEDURE: After risks and benefits were reviewed with the patient, consent was obtained in the preoperative area, and the operative eye was marked with a surgical pen. In the preoperative area, a pledget was used to dilate the pupil consisting of a mixture of phenylephrine 10%, cyclopentolate 2%, moxifloxacin 0.5%, and bupivacaine 0.75%. The patient was taken to the operating room, where a time-out was performed, and the patient was placed under monitored anesthesia care. Topical tetracaine was used for anesthesia. The operative eye was prepped and draped for ophthalmic surgery, and the microscope was brought into position and focused. A paracentesis incision was made, followed by injection of preservative-free 1% lidocaine into the anterior chamber, followed by injection of Viscoat into the anterior chamber. A microkeratome blade was used to make a corneal limbal incision temporally. A cystotome was used to make the beginning of the capsulorrhexis, which was carried around 360 degrees in a curvilinear fashion using Utrata forceps. During this time, it was noted immediately that there were missing zonules between clock hours 2 through 5 o'clock. Extra care was then used to not stress the zonules, and again during irrigation and aspiration, extra care was used such that no capsular tension ring was indicated. A Abbott cannula with BSS was used to hydrodissect and hydrodelineate the nucleus. The nucleus was removed in a divide and conquer manner using phacoemulsification. Irrigation and aspiration were used to remove the remaining cortical material. Provisc was used to inflate the capsular bag, and a pre-loaded Cruz [id number] 12.5 diopter lens, serial number [id number] was injected into the capsular bag. A Sinskey hook was used to position and center the lens. Next, irrigation and aspiration was used to remove any remaining viscoelastic and cortical material from the anterior chamber. BSS on a cannula was used to inflate the anterior chamber and hydrate the wound. The wound was checked and found to be watertight. 1 mg of Moxifloxacin was injected into the anterior chamber. Drapes were removed and the eye was cleaned. A drop of brimonidine 0.2% and a drop of TobraDex was placed. The eye was shielded, and the patient was taken to the recovery room in stable condition. /[id number] RABIA/NORMA
== END 2020-12-12 09:15 ==
LOC: FB.SDS 06:57
PROVIDERS: ATTEND Ophthalmology
DX: E11.36 Type 2 diabetes mellitus with diabetic cataract (principal); H25.811 Combined forms of age-related cataract, right eye; H25.12 Age-related nuclear cataract, left eye; H04.123 Dry eye syndrome of bilateral lacrimal glands; H43.811 Vitreous degeneration, right eye; H40.1122 Primary open-angle glaucoma, left eye, moderate stage; I12.9 Hypertensive chronic kidney disease with stage 1 through stage 4 chronic kidney disease, or unspecified chronic kidney disease; N18.30 Chronic kidney disease, stage 3 unspecified; E11.22 Type 2 diabetes mellitus with diabetic chronic kidney disease; M10.9 Gout, unspecified; E78.5 Hyperlipidemia, unspecified; Z79.899 Other long term (current) drug therapy; Z79.01 Long term (current) use of anticoagulants; Z88.8 Allergy status to other drugs, medicaments and biological substances; G81.94 Hemiplegia, unspecified affecting left nondominant side; I48.0 Paroxysmal atrial fibrillation; E66.01 Morbid (severe) obesity due to excess calories; Z68.41 Body mass index [BMI] 40.0-44.9, adult; F33.1 Major depressive disorder, recurrent, moderate; M05.79 Rheumatoid arthritis with rheumatoid factor of multiple sites without organ or systems involvement
CPT/HCPCS: 00142-QZ; 82947; A9270-GY; J2250; J3010; J7120; V2632

== ENCOUNTER 2021-10-20 15:28 | Emergency (ER) | payer MEDICARE ==
[2021-10-20] MEDS ORDERED: Amoxicillin/Clavulanate K 875-125 MG Tab PO ONE (17:14)
== END 2021-10-20 17:29 ==
LOC: FB.ED 15:28
DX: J69.0 Pneumonitis due to inhalation of food and vomit (principal); E11.22 Type 2 diabetes mellitus with diabetic chronic kidney disease; I13.0 Hypertensive heart and chronic kidney disease with heart failure and stage 1 through stage 4 chronic kidney disease, or unspecified chronic kidney disease; N18.2 Chronic kidney disease, stage 2 (mild); I50.9 Heart failure, unspecified; I48.91 Unspecified atrial fibrillation; E78.00 Pure hypercholesterolemia, unspecified; E66.01 Morbid (severe) obesity due to excess calories; Z68.36 Body mass index [BMI] 36.0-36.9, adult; Z88.8 Allergy status to other drugs, medicaments and biological substances; Z79.82 Long term (current) use of aspirin; Z79.84 Long term (current) use of oral hypoglycemic drugs; Z79.01 Long term (current) use of anticoagulants; Z79.899 Other long term (current) drug therapy; Z86.73 Personal history of transient ischemic attack (TIA), and cerebral infarction without residual deficits
CPT/HCPCS: 36415; 71045; 80053; 99285; A9270; 99282

== ENCOUNTER 2022-02-18 15:25 | Emergency (ER) | payer MEDICARE | END 2022-02-18 17:05 | LOC: FB.ED 15:25 | DX: L08.9 Local infection of the skin and subcutaneous tissue, unspecified (principal); I48.91 Unspecified atrial fibrillation; E78.00 Pure hypercholesterolemia, unspecified; I13.0 Hypertensive heart and chronic kidney disease with heart failure and stage 1 through stage 4 chronic kidney disease, or unspecified chronic kidney disease; E11.22 Type 2 diabetes mellitus with diabetic chronic kidney disease; N18.9 Chronic kidney disease, unspecified; I50.9 Heart failure, unspecified; M10.9 Gout, unspecified; E66.9 Obesity, unspecified; Z86.73 Personal history of transient ischemic attack (TIA), and cerebral infarction without residual deficits; Z88.8 Allergy status to other drugs, medicaments and biological substances; Z79.899 Other long term (current) drug therapy; Z79.82 Long term (current) use of aspirin; Z79.01 Long term (current) use of anticoagulants; Z79.84 Long term (current) use of oral hypoglycemic drugs | CPT/HCPCS: 99282 ==

== ENCOUNTER 2022-06-29 13:57 | Emergency (ER) | payer MEDICARE ==
[2022-06-29] MEDS ORDERED: Sodium Chloride 0.9% 10 ML Syringe FLUSH PRN (14:17)
[2022-06-29 14:46] LABS: ESTIMATED GFR 45 mL/min (>60)
[2022-06-29] MEDS ORDERED: cefTRIAXone 1 GM Vial IVPUSH STA (16:38)
[2022-06-29] MEDS ORDERED: Sodium Chloride 0.9% 1,000 ML IV SCH (16:45)
[2022-06-29 17:27] LABS: CORONAVIRUS COVID-19 NAA NEGATIVE (NEGATIVE)
== END 2022-06-29 20:05 ==
LOC: FB.ED 13:57
DX: N39.0 Urinary tract infection, site not specified (principal); E86.0 Dehydration; I12.9 Hypertensive chronic kidney disease with stage 1 through stage 4 chronic kidney disease, or unspecified chronic kidney disease; N18.2 Chronic kidney disease, stage 2 (mild); I48.91 Unspecified atrial fibrillation; E78.00 Pure hypercholesterolemia, unspecified; E66.9 Obesity, unspecified; Z68.30 Body mass index [BMI] 30.0-30.9, adult; Z88.8 Allergy status to other drugs, medicaments and biological substances; Z79.82 Long term (current) use of aspirin; Z79.84 Long term (current) use of oral hypoglycemic drugs; Z79.899 Other long term (current) drug therapy; Z86.73 Personal history of transient ischemic attack (TIA), and cerebral infarction without residual deficits; Z20.822 Contact with and (suspected) exposure to COVID-19; I13.0 Hypertensive heart and chronic kidney disease with heart failure and stage 1 through stage 4 chronic kidney disease, or unspecified chronic kidney disease; I50.30 Unspecified diastolic (congestive) heart failure
CPT/HCPCS: 0241U; 36415; 70450; 71045; 80053; 81001; 83880; 84484; 85027; 87086; 93005; 93010; 96361; 96374; 99284-25; 99285; J0696; J3490; J7030